=== PATIENT | female | born 1955 | race Caucasian/White ===

== ENCOUNTER 2019-08-18 11:10 | Inpatient (IN) ==
[2019-08-18] MEDS ORDERED: IOPAMIDOL 100 ML BOTTLE IV ONE (11:11)
--- NOTE | 2019-08-18 11:53 | Emergency Department Note ---
General Adult HPI - General Chief complaint: Weakness Stated complaint: weakness Time Seen by Provider: 08/18/19 11:20 Source: patient Mode of arrival: EMS Limitations: no limitations - History of Present Illness HPI Narrative: 64-year-old female patient presents emergency with chief complaint of dizziness with changes of position x2 days. Patient tells me over the last 2 days she is experienced profound unsteadiness and dizziness every time she is stood from a seated position. She describes sensation of the blood rushing from her head into her feet. During this time her legs feel very "heavy" and she is unsteady. She denies actual loss of consciousness. She does mention a history of falls in the past. She mentions bilateral lower extremity heaviness and pain with movement. She admits to drinking up to 6 bottles of water daily. She denies previous history of myocardial infarction or peripheral vascular disease. She does mention a history of chronic kidney disease but has not seen a single stayer operator in some time. ROS: Denies systemic illness, fever, sweats, chills. Denies headaches, tinnitus, or vision changes. Denies runny nose, sinus congestion, or cough. Admits to mild dyspnea on exertion. Admits to a longstanding smoking up to half pack daily since the age of 11. Denies retrosternal chest pain or palpitations. Denies abdominal pain, nausea, vomiting, or diarrhea. Denies dysuria, hematuria, urinary frequency, or urinary urgency. Denies focal weakness. - Related Data Home Medications Medication Instructions Recorded Confirmed fluoxetine 40 mg capsule 20 mg PO DAILY cap 10/19/14 07/31/17 lisinopril 40 mg tablet 40 mg PO DAILY tab 10/19/14 08/18/19 nortriptyline 10 mg capsule 30 mg PO QHS cap 10/19/14 07/31/17 Clopidogrel [Plavix] 75 mg PO DAILY 02/19/15 08/18/19 traZODone HCL [Trazodone HCl] 300 mg PO HS 02/19/15 08/18/19 Acetaminophen [Tylenol Arthritis] 650 mg PO Q4HP PRN 08/14/15 07/31/17 Acetaminophen [Tylenol] 650 mg RI Q4HP PRN 08/14/15 07/31/17 Albuterol Sulfate [Proair Hfa] 8.5 gm IH Q4 PRN 08/14/15 08/18/19 Bisacodyl [Gentle Laxative] 5 mg PO Q24HP PRN 08/14/15 07/31/17 Hydrocodone/APAP 7.5/325Mg [[place] 1 tab PO Q6HP PRN 08/14/15 07/31/17 7.5/325Mg] LORazepam [Ativan] 0.5 mg PO DAILYP PRN 08/14/15 07/31/17 Salmeterol Xinafoate [Serevent] 1 puff INH BID 08/14/15 07/31/17 hydrALAZINE HCL [Hydralazine HCl] 25 mg PO BID 08/14/15 08/18/19 Previous Rx's Medication Instructions Recorded oxycodone-acetaminophen 10 mg-325 See Rx Instructions PO .Q6-8H PRN 08/16/15 mg tablet #20 tab Triamcinolone Cream 0.1% 15G 1 dose TOPICAL BID #60 gm 08/26/17 [Kenalog Cream 0.1%] Allergies Allergy/AdvReac Type Severity Reaction Status Date / Time No Known Drug Allergies Allergy Verified 08/18/19 11:13 Review of Systems All systems ED: reviewed and negative except as stated. Past Medical History - Past Medical History [facility] Narrative: Medical History UTI (urinary tract infection) (Acute) Hypoxia (Acute) Fall at home (Acute) CVD (cerebrovascular disease) (Acute) Tobacco abuse (Acute) History of UTI (Acute) Ureteral calculus (Acute) Renal calculi (Acute) Nephrolithiasis (Acute) Kidney stones (Acute) Hypertension, essential (Acute) Hematuria, microscopic (Acute) Flank pain (Acute) CTS (carpal tunnel syndrome) (Acute) Back pain (Acute) Past Surgical History History of ureter repair (Acute) History of lithotripsy (Acute) History of renal stent (Acute) History of partial hysterectomy (Acute) History of continuous positive airway pressure (CPAP) therapy (Acute) History of colonoscopy (Acute) History of appendectomy (Acute) History of cystoscopy (Chronic 08/15/15) Family History Aunt History of coronary artery bypass surgery Grandmother Diabetes mellitus Medical history: Reports: arthritis, hypertension, peripheral artery disease, other (insomni, peripheral neuropathy.) Surgical history ED: Reports: angioplasty/stent, appendectomy, ANA/BSO (one ovary left in place. ) - Social History smoking status: Current some day smoker Physical Exam Limitations: no limitations General appearance: other (Well-developed, well-nourished, chronically ill- appearing 64-year-old female patient sitting upright on the emergency room [facility] in no acute distress.) Head: atraumatic, normocephalic Eye: Present: normal appearance, PERRL, EOMI. Absent: scleral icterus, conjunctival injection ENT: Present: normal oropharynx, mucous membranes moist Neck: Present: normal inspection, full ROM, trachea midline. Absent: lymphadenopathy Chest: Present: symmetric chest wall rise Respiratory: Present: rales/crackles (Faint crackles heard to the bases bilateral.), prolonged expiratory phase, decreased breath sounds. Absent: normal lung sounds bilaterally, respiratory distress, wheezes, stridor Cardiovascular: Present: regular rate, normal rhythm. Absent: systolic murmur, diastolic murmur Abdominal: Present: soft. Absent: distention, tenderness, guarding, rebound, rigidity, organomegaly, mass Extremities: Present: normal inspection, full ROM, normal capillary refill, calf tenderness (Towards the right.), other (Dorsalis pedis pulses present and b ounding on the right. Much harder to find a very faint towards the left.). Absent: pedal edema, pretibial edema Back: Present: normal inspection, full ROM, tenderness Neurological: Present: alert, oriented X3. Absent: normal gait, motor sensory deficit, reflexes normal Psychiatric: Present: normal affect, normal mood Skin: Present: warm, dry, normal color Course Course Narrative: The differential diagnosis of lower extremity heaviness and pain in a 64-year- old female patient is broad includes peripheral vascular disease, congestive heart failure, or neurogenic disorder. She is normotensive but somewhat tachycardic. She is afebrile. We are going to begin her work-up with orthostatic vital signs, chest radiograph, screening laboratory studies, and EKG. Patient did have some tenderness to the right calf musculature. She has no lower extremity edema we are going order a d-dimer to help sort this out. A review of her laboratory studies show the following: CBC WBC 21.5, RBC 5.12, hemoglobin 15.3, hematocrit 46.1, platelets 390. CMP BUN 27, glucose 112, all others within normal limits. Troponin less than 0.01. proBNP less than 50.0. D-dimer 0.40. Chest x-ray showing a possible left basilar nodule. Radiologist recommended repeat exam with nipple markers or chest CT scan. Twelve-lead EKG showing sinus tachycardia at [address] segment changes. No ectopy. After reviewing all the data I discussed these findings briefly with my collaborating physician (Dr. Harrison). Due to her leukocytosis a source of infection needs to be sought. She is going to be sent for a CT scan of her chest with contrast. Urinalysis is being sent to the lab for microscopic evaluation. I am going to order a lactic acid level and procalcitonin. Chest CT showed no pulmonary parenchymal nodule or focal consolidation. Radiologist did mention centrilobular emphysema and probable hepatic steatosis. Lactic acid 0.7. Procalcitonin 0.05. UAD showing yellow hazy urine with specific gravity of 1.027. 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 Knowing this additional information I spoke to my collaborative physician once again. She is likely suffering from some form of urinary tract infection/pyelonephritis. He recommended an ultrasound of her kidneys. This was ordered and reviewed showing mild right hydronephrosis that is considered likely chronic. Radiologist did mention at least 3 nonobstructing right-sided renal calculi. There was mildly echogenic renal cortex bilaterally. This is consistent with medical renal disease. At this time patient does have an elevated white blood cell count and a constellation of other symptoms such as dizziness with change the position and lower extremity heaviness. Her urinalysis definitely shows evidence of infection. This is likely pyelonephritis versus a mundane urinary tract infection. A review of my antibiotic resources indicate that Rocephin is a good choice for IV antibiotic therapy. Patient was given 1 g of Rocephin IVP. With the patient ongoing condition consulted with the hospitalist (Dr. Coronel) about possible admission for ongoing therapy. At this time the hospitalist concurred that the patient meets admissions criteria and will likely need ongoing care. Patient is going to be admitted to the medical service under the care of Dr. Coronel. All further treatment decisions, modalities, and ultimate patient disposition will be carried out by the hospitalist. Vital Signs Temperature 96.6 F L 08/18/19 11:11 Pulse Rate 114 H 06/12/20 11:11 Respiratory Rate 20 08/18/19 11:11 Blood Pressure 117/87 08/18/19 11:11 Pulse Oximetry (%) 96 08/18/19 11:11 Temperature 96.6 F L 08/18/19 11:11 Pulse Rate 107 H 08/18/19 16:01 Respiratory Rate 23 H 08/18/19 16:01 Blood Pressure 125/80 08/18/19 16:01 Pulse Oximetry (%) 95 08/18/19 16:01 Medical Decision Making - Lab Data Lab results reviewed: Yes I reviewed the patient's lab results. Result diagrams: 08/18/19 11:37 08/18/19 11:37 Lab Results 08/18/19 08/18/19 08/18/19 Range/Units 11:37 11:37 11:37 WBC 21.5 H (4.50-11.00) K/mcL RBC 5.12 (3.59-5.38) M/mcL Hgb 15.3 (11.2-15.7) g/dL Hct 46.1 H (34.1-44.9) % MCV 90.0 (80.0-100.0) fL MCH 29.9 (26.0-34.0) pg MCHC 33.2 (31.0-36.0) g/dL RDW 12.2 (11.5-14.5) % Plt Count 390 (140-440) K/mcL MPV 10.6 H (7.4-10.4) fL Gran % 67.8 (38.0-78.0) % Lymph % (Auto) 26.3 (15.5-49.0) % [place] % (Auto) 5.1 (1.0-12.0) % Eos % (Auto) 0.5 (0.0-7.0) % Baso % (Auto) 0.3 (0.0-2.0) % Gran # 14.57 H (1.80-8.00) K/mcL Lymph # (Auto) 5.64 H (1.50-4.80) K/mcL [place] # (Auto) 1.09 H (0.10-0.90) K/mcL Eos # (Auto) 0.11 (0.00-0.70) K/mcL Baso # (Auto) 0.07 (0.00-0.30) K/mcL D-Dimer (0.00-0.40) ug/ml VBG Lactic Acid (0.5-2.0) mmol/L Sodium 140 (133-145) mmol/L Potassium 3.4 (3.3-5.1) mmol/L Chloride 101 (96-108) mmol/L Carbon Dioxide 25 (22-30) mmol/L Anion Gap 14.0 (8-16) BUN 27 H (8-23) mg/dl Creatinine 1.1 (0.6-1.1) mg/dl GFR Calculation 52 Glucose 112 H (70-105) mg/dL Calcium 9.4 (8.6-10.4) mg/dl Total Bilirubin 0.2 (0.0-1.0) mg/dL AST 19 (0-37) U/l ALT 26 (0-40) U/l Alkaline Phosphatase 100 (39-117) U/L Troponin T < 0.01 (0-0.03) ng/ml NT-Pro-B Natriuret Pep (0-125) pg/ml Total Protein 7.4 (5.9-8.4) gm/dL Albumin 4.1 (3.2-5.2) gm/dL Globulin 3.3 (2.2-3.7) gm/dL Albumin/Globulin Ratio 1.2 (1.0-2.3) Procalcitonin (<0.10) ng/mL Urine Color Urine Appearance Urine pH (5.0-9.0) Ur Specific [place] (1.000-1.035) Urine Protein (NEG) mg/dL Urine Glucose (UA) (NEG) mg/dL Urine Ketones (NEG) mg/dL Urine Occult Blood (<0.03) mg/dL Urine Nitrate (NEG) Urine Bilirubin (NEG) mg/dL Urine Urobilinogen (NEG) mg/dL Ur Leukocyte Esterase (NEG) /uL Urine RBC (0-1) /hpf Urine WBC (0-4) /hpf Ur Squamous Epith Cells (0-4) /hpf Calcium Oxalate Crystal (0) /hpf Urine Bacteria (0) /hpf Hyaline Casts (0-2) /lpf Urine Mucus (0) /hpf Ur Culture Indicated? 08/18/19 08/18/19 08/18/19 Range/Units 11:37 11:37 11:37 WBC (4.50-11.00) K/mcL RBC (3.59-5.38) M/mcL Hgb (11.2-15.7) g/dL Hct (34.1-44.9) % MCV (80.0-100.0) fL MCH (26.0-34.0) pg MCHC (31.0-36.0) g/dL RDW (11.5-14.5) % Plt Count (140-440) K/mcL MPV (7.4-10.4) fL Gran % (38.0-78.0) % Lymph % (Auto) (15.5-49.0) % [place] % (Auto) (1.0-12.0) % Eos % (Auto) (0.0-7.0) % Baso % (Auto) (0.0-2.0) % Gran # (1.80-8.00) K/mcL Lymph # (Auto) (1.50-4.80) K/mcL [place] # (Auto) (0.10-0.90) K/mcL Eos # (Auto) (0.00-0.70) K/mcL Baso # (Auto) (0.00-0.30) K/mcL D-Dimer 0.40 (0.00-0.40) ug/ml VBG Lactic Acid (0.5-2.0) mmol/L Sodium (133-145) mmol/L Potassium (3.3-5.1) mmol/L Chloride (96-108) mmol/L Carbon Dioxide (22-30) mmol/L Anion Gap (8-16) BUN (8-23) mg/dl Creatinine (0.6-1.1) mg/dl GFR Calculation Glucose (70-105) mg/dL Calcium (8.6-10.4) mg/dl Total Bilirubin (0.0-1.0) mg/dL AST (0-37) U/l ALT (0-40) U/l Alkaline Phosphatase (39-117) U/L Troponin T (0-0.03) ng/ml NT-Pro-B Natriuret Pep < 50.0 (0-125) pg/ml Total Protein (5.9-8.4) gm/dL Albumin (3.2-5.2) gm/dL Globulin (2.2-3.7) gm/dL Albumin/Globulin Ratio (1.0-2.3) Procalcitonin 0.05 (<0.10) ng/mL Urine Color Urine Appearance Urine pH (5.0-9.0) Ur Specific [place] (1.000-1.035) Urine Protein (NEG) mg/dL Urine Glucose (UA) (NEG) mg/dL Urine Ketones (NEG) mg/dL Urine Occult Blood (<0.03) mg/dL Urine Nitrate (NEG) Urine Bilirubin (NEG) mg/dL Urine Urobilinogen (NEG) mg/dL Ur Leukocyte Esterase (NEG) /uL Urine RBC (0-1) /hpf Urine WBC (0-4) /hpf Ur Squamous Epith Cells (0-4) /hpf Calcium Oxalate Crystal (0) /hpf Urine Bacteria (0) /hpf Hyaline Casts (0-2) /lpf Urine Mucus (0) /hpf Ur Culture Indicated? 08/18/19 08/18/19 Range/Units 12:45 13:28 WBC (4.50-11.00) K/mcL RBC (3.59-5.38) M/mcL Hgb (11.2-15.7) g/dL Hct (34.1-44.9) % MCV (80.0-100.0) fL MCH (26.0-34.0) pg MCHC (31.0-36.0) g/dL RDW (11.5-14.5) % Plt Count (140-440) K/mcL MPV (7.4-10.4) fL Gran % (38.0-78.0) % Lymph % (Auto) (15.5-49.0) % [place] % (Auto) (1.0-12.0) % Eos % (Auto) (0.0-7.0) % Baso % (Auto) (0.0-2.0) % Gran # (1.80-8.00) K/mcL Lymph # (Auto) (1.50-4.80) K/mcL [place] # (Auto) (0.10-0.90) K/mcL Eos # (Auto) (0.00-0.70) K/mcL Baso # (Auto) (0.00-0.30) K/mcL D-Dimer (0.00-0.40) ug/ml VBG Lactic Acid 0.7 (0.5-2.0) mmol/L Sodium (133-145) mmol/L Potassium (3.3-5.1) mmol/L Chloride (96-108) mmol/L Carbon Dioxide (22-30) mmol/L Anion Gap (8-16) BUN (8-23) mg/dl Creatinine (0.6-1.1) mg/dl GFR Calculation Glucose (70-105) mg/dL Calcium (8.6-10.4) mg/dl Total Bilirubin (0.0-1.0) mg/dL AST (0-37) U/l ALT (0-40) U/l Alkaline Phosphatase (39-117) U/L Troponin T (0-0.03) ng/ml NT-Pro-B Natriuret Pep (0-125) pg/ml Total Protein (5.9-8.4) gm/dL Albumin (3.2-5.2) gm/dL Globulin (2.2-3.7) gm/dL Albumin/Globulin Ratio (1.0-2.3) Procalcitonin (<0.10) ng/mL Urine Color Yellow Urine Appearance Hazy Urine pH 5.0 (5.0-9.0) Ur Specific [place] 1.027 (1.000-1.035) Urine Protein 30 A (NEG) mg/dL Urine Glucose (UA) Negative (NEG) mg/dL Urine Ketones Neg (NEG) mg/dL Urine Occult Blood Neg (<0.03) mg/dL Urine Nitrate Neg (NEG) Urine Bilirubin Neg (NEG) mg/dL Urine Urobilinogen 2.0 A (NEG) mg/dL Ur Leukocyte Esterase 250 A (NEG) /uL Urine RBC 4 H (0-1) /hpf Urine WBC > 182 H (0-4) /hpf Ur Squamous Epith Cells < 1 (0-4) /hpf Calcium Oxalate Crystal Many A (0) /hpf Urine Bacteria Many A (0) /hpf Hyaline Casts 5 H (0-2) /lpf Urine Mucus Mod (0) /hpf Ur Culture Indicated? Yes - Radiology Data Radiology results reviewed: Yes I reviewed the patient's radiology results. Ordering Physician: Dayo Andino PA-C Date of Service: 08/18/19 Procedure(s): XR chest 2V Accession Number(s): [id number] INDICATION: XAVIER x 2 days. Orthopnea. long Hx of smoking. Weakness TECHNIQUE: PA and lateral upright chest x-ray COMPARISON: Previous examination dated 02/19/2015 FINDINGS: Lungs: Possible nodule identified at the left lung base. This is only visualized on frontal view. This may be a prominent nipple shadow. The frontal view with nipple markers or chest CT scan recommended. Lungs are otherwise negative. No other focal pulmonary parenchymal abnormality. Heart, vascular: No significant cardiomegaly. Pulmonary vascularity is normal. No pulmonary edema or pulmonary congestion Mediastinum, erika: No mediastinal widening. No hilar mass Pleura:No pleural fluid. No pleural-based mass or calcification Thoracic spine, ribs: No thoracic compression fracture. Ribs are negative. No fracture. No lytic lesion IMPRESSION: 1. Possible left basilar nodule. Recommend repeat examination with nipple markers or chest CT scan 2. Otherwise negative examination Interpreted and Authenticated by: Farrukh Adler 08/18/19 Ordering Physician: Dayo Andino PA-C Date of Service: 08/18/19 Procedure(s): CT chest w con Accession Number(s): [id number] INDICATION: Possible left basilar mass demonstrated on previous chest x-ray. Elevated white blood cell count. COMPARISON: Chest x-rays dated 08/18/2019, 02/19/2015 TECHNIQUE: Axial contrast enhanced images through the chest. Sagittally and coronally reformatted images. MIP reformatted images. 80ml Isovue 370 injected intravenously. FINDINGS: Lungs:No pulmonary parenchymal nodules. No focal consolidation. There is bilateral centrilobular emphysema with upper lobe predominance. Appearance is consistent with smoking history. No significant paraseptal emphysema. There is no honeycombing. No bronchiectasis. No intralobular septal thickening. Mediastinum, vascular:Normal thoracic aorta. No thoracic aortic aneurysm or dissection. No pathologic mediastinal or hilar lymphadenopathy Heart:No cardiomegaly. No pericardial effusion. No significant coronary artery calcification Pleura:No significant pleural effusion. No pleural-based mass or calcification Axilla, supraclavicular regions, chest wall:No pathologic axillary or supraclavicular adenopathy. Musculoskeletal:No thoracic compression fracture or lytic lesion. No sternal or rib lesion Upper Abdomen:Liver is low density relative to the spleen consistent with hepatic steatosis. No other abnormality IMPRESSION: 1. No pulmonary parenchymal nodule. No focal consolidation 2. Centrilobular emphysema 3. Probable hepatic steatosis The exam was performed using radiation dose optimization techniques including, but not limited to, automated exposure control, adjustment of the mA and/or kV according to patient size and use of iterative reconstruction technique. Interpreted and Authenticated by: Farrukh Adler 08/18/19 Ordering Physician: Dayo Andino PA-C Date of Service: 08/18/19 Procedure(s): US renal BI Accession Number(s): [id number] INDICATION: R/o pylonephritis. TECHNIQUE: Grayscale and color flow Doppler spectral imaging. COMPARISON: Previous CT scan dated 07/29/2013 FINDINGS: Right kidney: Right kidney [id number] x 5.2 x 3.8 cm.. Right renal cortex is mildly echogenic consistent with medical renal disease. There is mild hydronephrosis. Previous CT scan demonstrated hydronephrosis and a right ureteral stent. This hydronephrosis probably residual and chronic. There are small nonobstructing right renal calculi. No solid or cystic mass. Left kidney: Left kidney [id number] x 4.5 x 4.4 cm.. There is no hydronephrosis. No solid left renal mass. Left renal cortex is mildly echogenic consistent with medical renal disease. No detectable calculi. Incidental note is made of a 9 mm mid to lower pole cyst. Bladder: Prevoid bladder mL. Post void bladder volumepatient was unable to void. No bladder calculi. No detectable mass. Bilateral ureteral jets visualized. IMPRESSION: 1. Mild right hydronephrosis. This is probably chronic 2. At least 4 nonobstructing right renal calculi 3. Mildly echogenic renal cortex bilaterally. Findings consistent with medical renal disease Interpreted and Authenticated by: Farrukh Adler 08/18/19 - EKG Data EKG #1 EKG results narrative: Twelve-lead EKG showing sinus tachycardia at 107 bpm. There is increased QTC at 497. No ectopy. No ST segment changes. Disposition Pt seen by TANNING WHEEL FILLER/PA only: Yes Clinical Impression: Pyelonephritis, acute Disposition: Xfer As Outpt/Obs ([facility]) Condition: Good Referrals: Cathryn Zamora MD [Referring] -
[2019-08-18] MEDS ORDERED: 0.9 % SODIUM CHLORIDE 1,000 ML IV ONE (12:12)
--- NOTE | 2019-08-18 12:13 | XRay Report ---
INDICATION: XAVIER x 2 days. Orthopnea. long Hx of smoking. Weakness TECHNIQUE: PA and lateral upright chest x-ray COMPARISON: Previous examination dated 02/19/2015 FINDINGS: Lungs: Possible nodule identified at the left lung base. This is only visualized on frontal view. This may be a prominent nipple shadow. The frontal view with nipple markers or chest CT scan recommended. Lungs are otherwise negative. No other focal pulmonary parenchymal abnormality. Heart, vascular: No significant cardiomegaly. Pulmonary vascularity is normal. No pulmonary edema or pulmonary congestion Mediastinum, erika: No mediastinal widening. No hilar mass Pleura:No pleural fluid. No pleural-based mass or calcification Thoracic spine, ribs: No thoracic compression fracture. Ribs are negative. No fracture. No lytic lesion IMPRESSION: 1. Possible left basilar nodule. Recommend repeat examination with nipple markers or chest CT scan 2. Otherwise negative examination Interpreted and Authenticated by: Farrukh Adler 08/18/19
[2019-08-18 12:32] LABS: Basophils # (Auto) 0.07 K/mcL (0.00-0.30); Basophils % (Auto) 0.3 % (0.0-2.0); Eosinophils # (Auto) 0.11 K/mcL (0.00-0.70); Eosinophils % (Auto) 0.5 % (0.0-7.0); Granulocytes % (Auto) 67.8 % (38.0-78.0); Hematocrit 46.1 % (34.1-44.9); Hemoglobin 15.3 g/dL (11.2-15.7); Lymphocytes # (Auto) 5.64 K/mcL (1.50-4.80); Lymphocytes % (Auto) 26.3 % (15.5-49.0); Mean Corpuscular HGB Conc 33.2 g/dL (31.0-36.0); Mean Platelet Volume 10.6 fL (7.4-10.4); Monocytes # (Auto) 1.09 K/mcL (0.10-0.90); Monocytes % (Auto) 5.1 % (1.0-12.0); Platelet Count 390 K/mcL (140-440); RBC 5.12 M/mcL (3.59-5.38); Red Cell Distribution Width 12.2 % (11.5-14.5); WBC 21.5 K/mcL (4.50-11.00)
[2019-08-18 13:04] LABS: ALT/SGPT 26 U/l (0-40); AST/SGOT 19 U/l (0-37); Albumin 4.1 gm/dL (3.2-5.2); Albumin/Globulin Ratio 1.2 (1.0-2.3); Alkaline Phosphatase 100 U/L (39-117); Bilirubin,Total 0.2 mg/dL (0.0-1.0); Blood Urea Nitrogen 27 mg/dl (8-23); Calcium 9.4 mg/dl (8.6-10.4); Carbon Dioxide 25 mmol/L (22-30); Chloride 101 mmol/L (96-108); Globulin 3.3 gm/dL (2.2-3.7); Glomerular Filtration Rate 52; Glucose 112 mg/dL (70-105)
[2019-08-18 14:05] LABS: Appearance,Urine HAZY; Bacteria,Urine MANY /hpf (0); Bilirubin,Urine NEG (NEG); Calcium Oxalate Crystals,Urine MANY /hpf (0); Color,Urine YELLOW; Culture Indicated,Urine YES; Glucose,Urine (UA) NEGATIVE (NEG); Ketones,Urine NEG (NEG); Leukocyte Esterase,Urine 250 /uL (NEG); Mucus,Urine MOD /hpf (0); Nitrate,Urine NEG (NEG); Protein,Urine 30 mg/dL (NEG); Specific Gravity,Urine 1.027 (1.000-1.035); Urine Blood NEG mg/dL (<0.03); Urine Hyaline Cast 5 /lpf (0-2); Urine RBC 4 /hpf (0-1); Urine Squamous Epithelial Cell < 1 /hpf (0-4); Urine WBC > 182 /hpf (0-4)
--- NOTE | 2019-08-18 14:06 | Cat Scan Report ---
INDICATION: Possible left basilar mass demonstrated on previous chest x-ray. Elevated white blood cell count. COMPARISON: Chest x-rays dated 08/18/2019, 02/19/2015 TECHNIQUE: Axial contrast enhanced images through the chest. Sagittally and coronally reformatted images. MIP reformatted images. 80ml Isovue 370 injected intravenously. FINDINGS: Lungs:No pulmonary parenchymal nodules. No focal consolidation. There is bilateral centrilobular emphysema with upper lobe predominance. Appearance is consistent with smoking history. No significant paraseptal emphysema. There is no honeycombing. No bronchiectasis. No intralobular septal thickening. Mediastinum, vascular:Normal thoracic aorta. No thoracic aortic aneurysm or dissection. No pathologic mediastinal or hilar lymphadenopathy Heart:No cardiomegaly. No pericardial effusion. No significant coronary artery calcification Pleura:No significant pleural effusion. No pleural-based mass or calcification Axilla, supraclavicular regions, chest wall:No pathologic axillary or supraclavicular adenopathy. Musculoskeletal:No thoracic compression fracture or lytic lesion. No sternal or rib lesion Upper Abdomen:Liver is low density relative to the spleen consistent with hepatic steatosis. No other abnormality IMPRESSION: 1. No pulmonary parenchymal nodule. No focal consolidation 2. Centrilobular emphysema 3. Probable hepatic steatosis The exam was performed using radiation dose optimization techniques including, but not limited to, automated exposure control, adjustment of the mA and/or kV according to patient size and use of iterative reconstruction technique. Interpreted and Authenticated by: Farrukh Adler 08/18/19
--- NOTE | 2019-08-18 15:32 | Ultrasound Report ---
INDICATION: R/o pylonephritis. TECHNIQUE: Grayscale and color flow Doppler spectral imaging. COMPARISON: Previous CT scan dated 07/29/2013 FINDINGS: Right kidney: Right kidney .2 x 5.2 x 3.8 cm.. Right renal cortex is mildly echogenic consistent with medical renal disease. There is mild hydronephrosis. Previous CT scan demonstrated hydronephrosis and a right ureteral stent. This hydronephrosis probably residual and chronic. There are small nonobstructing right renal calculi. No solid or cystic mass. Left kidney: Left kidney [id number] x 4.5 x 4.4 cm.. There is no hydronephrosis. No solid left renal mass. Left renal cortex is mildly echogenic consistent with medical renal disease. No detectable calculi. Incidental note is made of a 9 mm mid to lower pole cyst. Bladder: Prevoid bladder [id number] mL. Post void bladder volumepatient was unable to void. No bladder calculi. No detectable mass. Bilateral ureteral jets visualized. IMPRESSION: 1. Mild right hydronephrosis. This is probably chronic 2. At least 4 nonobstructing right renal calculi 3. Mildly echogenic renal cortex bilaterally. Findings consistent with medical renal disease Interpreted and Authenticated by: Farrukh Adler 08/18/19
[2019-08-18] MEDS ORDERED: cefTRIAXone 1 GM VIAL IM ONE (15:43)
[2019-08-18] MEDS ORDERED: cefTRIAXone 1 GM VIAL IV ONE (15:46)
--- NOTE | 2019-08-18 16:16 | Internal Med History&Physical ---
Medical - H&P: [facility] Patient information: Note initiated : 08/18/19 at 4:16 pm Service Date, if different from initiated Date: [] Patient: Debbie Delgado 64 y/o F admitted on for weakness. Chief Complaint: [] Chief complaint: Weakness, fever History of present illness: Ms. Delgado is a 64 year old F with a history of nephrolithiasis/tobacco dependence/HTN and CVA who presents to the ER with 2 days onset of increasing weakness, flank pain and progressive dizziness that initially started on activity progressing to multiple episodes of dizziness today. With increasing concerns patient presents to the ER for evaluation. Initial work-up in the ER was consistent with white count over 21,000/pyuria suggestive of night pyelonephritis in the setting of flank pain and mild RUSTAM. Following pancultures antibiotics were administered. Hospitalist service was consulted for admission At the time evaluation patient is alert but very anxious. She is tachycardic. She was able to endorse history as above. She denies diarrhea, dysuria, bloody urine, joint pain but endorses to myalgia weakness malaise and loss of appetite. She denies nausea/hematemesis or URI symptoms. She denies recent hospitalizations. She further denies changes in medications. Review of systems A 10 point review system was performed and is negative except for ones discussed above Medical - H&P: PM Medical history: Back pain (Acute) CTS (carpal tunnel syndrome) (Acute) CVD (cerebrovascular disease) (Acute) Fall at home (Acute) Flank pain (Acute) right Hematuria, microscopic (Acute) History of UTI (Acute) Hypertension, essential (Acute) Hypoxia (Acute) Kidney stones (Acute) Nephrolithiasis (Acute) Renal calculi (Acute) 08/10/2013 Tobacco abuse (Acute) UTI (urinary tract infection) (Acute) Ureteral calculus (Acute) 08/10/2013 Surgical History History of appendectomy (Acute) History of colonoscopy (Acute) 07/25/2010 History of continuous positive airway pressure (CPAP) therapy (Acute) History of lithotripsy (Acute) 06/2013; right kidney, performed at [place] History of partial hysterectomy (Acute) History of renal stent (Acute) Right kidney History of ureter repair (Acute) Right History of cystoscopy (Chronic 08/15/15) retrograde pyelogram, ureteroscopy, laser lithotripsy, stone removal Family History Aunt History of coronary artery bypass surgery Grandmother Diabetes mellitus Maternal Social History housing: house marital status: smoking status: Former smoker alcohol intake frequency: does not drink Reproductive History Menstrual Medical - H&P: Meds Home Medications Medication Instructions Recorded Confirmed Type fluoxetine 40 mg capsule 40 mg PO DAILY cap 10/19/14 08/18/19 History lisinopril 40 mg tablet 40 mg PO DAILY tab 10/19/14 08/18/19 History nortriptyline 10 mg capsule 50 mg PO QHS cap 10/19/14 08/18/19 History Clopidogrel [Plavix] 75 mg PO DAILY 02/19/15 08/18/19 History traZODone HCL [Trazodone HCl] 300 mg PO HS 02/19/15 08/18/19 History Acetaminophen [Tylenol Arthritis] 650 mg PO Q4HP PRN 08/14/15 08/18/19 History Acetaminophen [Tylenol] 650 mg NE Q4HP PRN 08/14/15 08/18/19 History Albuterol Sulfate [Proair Hfa] 8.5 gm IH Q4 PRN 08/14/15 08/18/19 History Bisacodyl [Gentle Laxative] 5 mg PO Q24HP PRN 08/14/15 08/18/19 History Hydrocodone/APAP 7.5/325Mg [[place] 1 tab PO Q6HP PRN 08/14/15 08/18/19 History 7.5/325Mg] LORazepam [Ativan] 0.5 mg PO DAILYP PRN 08/14/15 08/18/19 History Salmeterol Xinafoate [Serevent] 1 puff INH BID 08/14/15 08/18/19 History hydrALAZINE HCL [Hydralazine HCl] 25 mg PO BID 08/14/15 08/18/19 History oxycodone-acetaminophen 10 mg-325 See Rx Instructions PO .Q6-8H PRN 08/16/15 08/18/19 Rx mg tablet #20 tab Triamcinolone Cream 0.1% 15G 1 dose TOPICAL BID #60 gm 08/26/17 08/18/19 Rx [Kenalog Cream 0.1%] Allergies Allergy/AdvReac Type Severity Reaction Status Date / Time No Known Drug Allergies Allergy Verified 08/18/19 11:13 Medical - H&P: Exam - Constitutional Vitals: Temp Pulse Resp BP Pulse Ox 96.6 F L 107 H 23 H 125/80 95 08/18/19 11:11 08/18/19 16:01 08/18/19 16:01 08/18/19 16:01 08/18/19 16:01 General appearance: morbidly obese Exam: Head normocephalic Oral cavity dry No ear nose discharge Neck no lymphadenopathy S1-S2 regular rhythm Diminished breath sounds bases Abdomen tender right flank No lymphedema cyanosis or clubbing or joint swelling Skin no suspicious lesion Psych anxious Neuro nonfocal Medical - H&P: Reslt - Labs CBC & Chem 7: 08/19/19 05:45 08/19/19 05:45 Labs: Short CBC 08/18/19 Range/Units 11:37 WBC 21.5 H (4.50-11.00) K/mcL Hgb 15.3 (11.2-15.7) g/dL Hct 46.1 H (34.1-44.9) % Plt Count 390 (140-440) K/mcL BMP 08/18/19 11:37 Sodium 140 Potassium 3.4 Chloride 101 Carbon Dioxide 25 BUN 27 H Creatinine 1.1 Glucose 112 H Calcium 9.4 Cardiac Enzymes 08/18/19 Range/Units 11:37 Troponin T < 0.01 (0-0.03) ng/ml Liver Function 08/18/19 Range/Units 11:37 Total Bilirubin 0.2 (0.0-1.0) mg/dL AST 19 (0-37) U/l ALT 26 (0-40) U/l Alkaline Phosphatase 100 (39-117) U/L Albumin 4.1 (3.2-5.2) gm/dL Urine 08/18/19 Range/Units 12:45 Urine Color Yellow Urine Appearance Hazy Urine pH 5.0 (5.0-9.0) Ur Specific [place] 1.027 (1.000-1.035) Urine Protein 30 A (NEG) mg/dL Urine Glucose (UA) Negative (NEG) mg/dL Medical - H&P: A/P (1) Acute pyelonephritis Current visit: Yes Status: Acute * Acute pyonephritis with severe sepsis. White count 21,000. Initiate antibiotic coverage. De-escalate based on sensitivities. * Severe sepsis with endorgan dysfunction-pancultures/antibiotic coverage. Seps is management per guidelines * RUSTAM-secondary to sepsis endorgan dysfunction. Continue crystalloid/management of primary etiology. * Tobacco dependence-nicotine patch. * Mild COPD on as needed bronchodilators. * History of CVA on Plavix * Hypertension continue lisinopril once systolics improved and sepsis resolves * Anxiety-continue home dose lorazepam/trazodone/ nortriptyline * Degenerative joint disease continue oxycodone * Full code * Prophylaxis heparin Plan * Inpatient hospitalization. Anticipate minimum 2 midnight stay * Broad antibiotic coverage * De-escalate based on sensitivities * Monitor renal function * Pre-existing medical condition management as above * PT OT/nutrition support
[2019-08-18] MEDS ORDERED: ONDANSETRON 4 MG/2 ML VIAL IV PRN (17:26)
[2019-08-18] MEDS ORDERED: BISACODYL 10 MG SUPP.RECT PR PRN (17:26)
[2019-08-18] MEDS ORDERED: MELATONIN 3 MG TABLET PO PRN (17:26)
[2019-08-18] MEDS ORDERED: ALBUTEROL SULFATE 200 PUFF INHALER IH PRN (17:26)
[2019-08-18] MEDS ORDERED: hydrALAZINE 20 MG/ML VIAL IV PRN (17:26)
[2019-08-18] MEDS ORDERED: POTASSIUM CHLORIDE 20 MEQ PACKET PO PRN (17:26)
[2019-08-18] MEDS ORDERED: ONDANSETRON 4 MG ODT TABLET SL PRN (17:26)
[2019-08-18] MEDS ORDERED: MAGNESIUM SULFATE 2 GM/50 ML BAG IV PRN (17:26)
[2019-08-18] MEDS ORDERED: POLYETHYLENE GLYCOL 3350 17 GM PACKET PO PRN (17:26)
[2019-08-18] MEDS ORDERED: ACETAMINOPHEN 325 MG TABLET PO PRN (17:26)
[2019-08-18] MEDS: 0.9 % SODIUM CHLORIDE 1,000 ML IV SCH (17:41)
[2019-08-18] MEDS: ACETAMINOPHEN 650 MG/65 ML BOTTLE IV PRN (20:24)
[2019-08-18] MEDS: cefTRIAXone 2 GM in DEXTROSE 5% IN WATER 50 ML IV SCH (20:31)
[2019-08-18] MEDS ORDERED: cefTRIAXone 2 GM VIAL ONE (20:33)
[2019-08-18] MEDS: DOCUSATE SODIUM 100 MG CAPSULE PO SCH (21:29)
[2019-08-18] MEDS: hydrALAZINE 25 MG TABLET PO SCH (21:29)
[2019-08-18] MEDS: HEPARIN 5,000 UNIT/ML VIAL SQ SCH (21:29)
[2019-08-18] MEDS: traZODone HCL 150 MG TABLET PO SCH (21:30)
[2019-08-18] MEDS: TRIAMCINOLONE CREAM 0.1% 15G 1 DOSE TUBE TOPICAL SCH (21:30)
[2019-08-18] MEDS: SENNOSIDES/DOCUSATE SODIUM 1 TAB TABLET PO SCH (21:30)
[2019-08-18] MEDS: 0.9 % SODIUM CHLORIDE 10 ML SYRINGE IV SCH (21:31)
[2019-08-19] MEDS: ACETAMINOPHEN 650 MG/65 ML BOTTLE IV PRN ×2 (03:44→19:23)
[2019-08-19] MEDS: HYDROmorphone 0.5 MG/0.5 ML SYRINGE IV PRN ×4 (04:30→21:57)
[2019-08-19] MEDS: 0.9 % SODIUM CHLORIDE 10 ML SYRINGE IV SCH ×3 (05:56→20:47)
[2019-08-19 07:04] LABS: Hematocrit 41.6 % (34.1-44.9); Mean Cell Volume 89.7 fL (80.0-100.0); Mean Corpuscular HGB Conc 33.7 g/dL (31.0-36.0); Mean Platelet Volume 10.8 fL (7.4-10.4); Platelet Count 303 K/mcL (140-440); RBC 4.64 M/mcL (3.59-5.38); Red Cell Distribution Width 12.3 % (11.5-14.5); WBC 13.3 K/mcL (4.50-11.00)
[2019-08-19 07:27] LABS: ALT/SGPT 22 U/l (0-40); AST/SGOT 18 U/l (0-37); Albumin 3.2 gm/dL (3.2-5.2); Albumin/Globulin Ratio 1.1 (1.0-2.3); Alkaline Phosphatase 82 U/L (39-117); Bilirubin,Direct < 0.2 mg/dL (0.0-0.3); Bilirubin,Total 0.2 mg/dL (0.0-1.0); Blood Urea Nitrogen 22 mg/dl (8-23); Calcium 8.6 mg/dl (8.6-10.4); Carbon Dioxide 24 mmol/L (22-30); Chloride 104 mmol/L (96-108); Glomerular Filtration Rate 67; Glucose 101 mg/dL (70-105); Lactate Dehydrogenase 127 U/L (94-250); Phosphorous 3.2 mg/dL (2.7-4.5); Triglycerides 132 mg/dl (<150); Uric Acid 5.5 mg/dL (2.5-8.0)
[2019-08-19 08:58] LABS: Lymphocytes % 33 % (15-49); Monocytes % (Manual) 5 % (1-12); Platelet Estimate NORMAL (NORMAL); RBC Morphology NORMAL (NORMAL); Reactive Lymphocytes 1 % (0-2); Segmented Neutrophils % 61 % (38-78)
[2019-08-19] MEDS: DOCUSATE SODIUM 100 MG CAPSULE PO SCH ×2 (09:05→20:47)
[2019-08-19] MEDS: hydrALAZINE 25 MG TABLET PO SCH ×2 (09:05→20:47)
[2019-08-19] MEDS: MULTIVIT,THER IRON,CA,FA & MIN 1 TABLET PO SCH (09:05)
[2019-08-19] MEDS: CLOPIDOGREL 75 MG TABLET PO SCH (09:05)
[2019-08-19] MEDS: TRIAMCINOLONE CREAM 0.1% 15G 1 DOSE TUBE TOPICAL SCH ×2 (09:05→20:47)
[2019-08-19] MEDS: NICOTINE 21 MG PATCH TOPICAL SCH (09:05)
[2019-08-19] MEDS: HEPARIN 5,000 UNIT/ML VIAL SQ SCH ×2 (09:05→20:46)
[2019-08-19] MEDS: LISINOPRIL 20 MG TABLET PO SCH (09:05)
--- NOTE | 2019-08-19 11:24 | Internal Med Progress Note ---
Medical - PN: Subj Patient information: Note initiated : 08/19/19 at 11:24 am Service Date, if different from initiated Date: [] Patient: Debbie Delgado 64 y/o F admitted on 08/18/19 for weakness. Chief Complaint: [] Interval history: Ms. Delgado is a 64 year old F with a history of nephrolithiasis/tobacco dependence/HTN and CVA who presents to the ER with 2 days onset of increasing weakness, flank pain and progressive dizziness that initially started on activity progressing to multiple episodes of dizziness today. With increasing concerns patient presents to the ER for evaluation. Initial work-up in the ER was consistent with white count over 21,000/pyuria suggestive of night pyelonephritis in the setting of flank pain and mild RUSTAM. Following pancultures antibiotics were administered. Hospitalist service was consulted for admission At the time evaluation patient is alert but very anxious. She is tachycardic. She was able to endorse history as above. She denies diarrhea, dysuria, bloody urine, joint pain but endorses to myalgia weakness malaise and loss of appetite. She denies nausea/hematemesis or URI symptoms. She denies recent hospitalizations. She further denies changes in medications. 08/18-patient doing well. White count down to 13.3. On antibiotic coverage. Improved flank pain. Creatinine downtrending 2.9. BUN improved. Stable hemodynamics. GNR on cultures. Await sensitivities. Continue crystalloid/antibiotics. Discharge in 24 hours if clinically improved - Constitutional Vitals: Vital Signs Temp Pulse Resp BP Pulse Ox 98.2 F 97 H 18 138/84 92 08/19/19 06:59 08/19/19 06:59 08/19/19 07:00 08/19/19 06:59 08/19/19 06:59 Period Temp Pulse Resp BP Sys/Sosa Pulse Ox Last 24 Hr 97.0 F-98.2 F 97-118 14-25 80-138/54-95 85-98 Intake and Output 08/18/19 08/19/19 08/19/19 21:59 05:59 13:59 Intake Total 2065 450 400 Output Total 450 250 Balance 2065 0 150 Weight 200 lb 6.4 oz Intake & Output: Intake & Output 08/18/19 08/19/19 08/19/19 21:59 05:59 13:59 Intake Total 2065 450 400 Output Total 450 250 Balance 206 0 150 Weight 200 lb 6.4 oz Intake: IV 1065 Sodium Chloride 0.9% 1,000 ml @ 1000 Wide Open IV BOL[facility] ONE Rx#: [id number] Oral 1000 450 400 Output: Void Amount 450 250 Other: Meal Breakfast Percent of Meal Consumed 75% Feeding Ability Independent Urine Appearance Cloudy Cloudy Urine Color Bright Yellow Dark Yellow Urine Odor Foul Strong General appearance: no acute distress Exam: Alert oriented Nonlabored breathing No anxiety Nontender abdomen Medical - PN: Obj Da - Labs CBC & Chem 7: 08/20/19 05:45 08/20/19 05:45 Labs: Abnormal Lab Results 08/19/19 08/18/19 08/18/19 05:45 12:45 11:37 WBC 13.3 H Hct MPV 10.8 H Gran # Lymph # (Auto) [place] # (Auto) BUN 27 H Glucose 112 H Urine Protein 30 A Urine Urobilinogen 2.0 A Ur Leukocyte Esterase 250 A Urine RBC 4 H Urine WBC > 182 H Calcium Oxalate Crystal Many A Urine Bacteria Many A Hyaline Casts 5 H 08/18/19 11:37 WBC 21.5 H Hct 46.1 H MPV 10.6 H Gran # 14.57 H Lymph # (Auto) 5.64 H [place] # (Auto) 1.09 H BUN Glucose Urine Protein Urine Urobilinogen Ur Leukocyte Esterase Urine RBC Urine WBC Calcium Oxalate Crystal Urine Bacteria Hyaline Casts Meds: Medications Acetaminophen (Tylenol) 650 mg PO Q4-6HP PRN; Protocol PRN Reason: Per Pain Protocol/Fever > 101 Albuterol Sulfate (Ventolin) 1 puff IH Q4HP PRN PRN Reason: COPD Bisacodyl (Dulcolax) 10 mg MD Q2-3DAYS PRN PRN Reason: Constipation Clopidogrel Bisulfate (Plavix) 75 mg PO DAILY PENDING SALE TO [facility] Last Admin: 08/19/19 09:05 Dose: 75 mg Documented by: Docusate Sodium (Colace) 100 mg PO BID [facility]ENDING S[facility] TO [facility] Last Admin: 08/19/19 09:05 Dose: 100 mg Documented by: Heparin Sodium (Porcine) (Heparin) 5,000 unit SQ Q12 PENDING SALE TO [facility] Last Admin: 08/19/19 09:05 Dose: 5,000 unit Documented by: Hydralazine HCl (Apresoline) 10 mg IV Q4-6HP PRN PRN Reason: Hypertension Hydralazine HCl (Apresoline) 25 mg PO BID [facility] Last Admin: 08/19/19 09:05 Dose: 25 mg Documented by: Hydromorphone HCl (Dilaudid) 0 mg IV Q4HP PRN; Protocol PRN Reason: Per Pain Protocol Last Admin: 08/19/19 04:30 Dose: 0.5 mg Documented by: Sodium Chloride (Sodium Chloride 0.9%) 1,000 mls @ 50 mls/hr IV .Q20H PENDING SALE TO [facility] Stop: 08/21/19 05:25 Last Admin: 08/18/19 17:41 Dose: 50 mls/hr Documented by: Magnesium Sulfate (Magnesium Sulfate) 2 gm in 50 mls @ 50 mls/hr IV UD PRN PRN Reason: MG = or < 1.7 Ceftriaxone Sodium 2 gm/ (Dextrose) 50 mls @ 100 mls/hr IV Q24H [facility]END[facility] TO [facility]; Protocol Last Admin: 08/18/19 20:31 Dose: 100 mls/hr Documented by: Acetaminophen (Ofirmev) 650 mg in 65 mls @ 130 mls/hr IV Q6HP PRN; Protocol PRN Reason: Per Pain Protocol/Fever > 101 Last Admin: 08/19/19 03:44 Dose: 130 mls/hr Documented by: Iron Carb/Multivit/[place]/Folic Acid (Multivitamin W/Minerals) 1 tab PO DAILY [facility] Last Admin: 08/19/19 09:05 Dose: 1 tab Documented by: Lisinopril (Zestril) 20 mg PO DAILY [facility] Last Admin: 08/19/19 09:05 Dose: 20 mg Documented by: Melatonin (Melatonin 3mg Tablet) 3 mg PO HSP PRN PRN Reason: Insomnia Nicotine (Nicoderm) 21 mg TOPICAL DAILY@1000 P[facility] S[facility] TO [facility] Last Admin: 08/19/19 09:05 Dose: Not Given Documented by: Ondansetron HCl (Zofran Odt) 4 mg SL Q4-6HP PRN; Protocol PRN Reason: Nausea And Vomiting Ondansetron HCl (Zofran) 4 mg IV Q4-6HP PRN; Protocol PRN Reason: Nausea And Vomiting Polyethylene Glycol (Miralax) 17 gm PO DAILYP PRN PRN Reason: Constipation Potassium Chloride (Klor-Con) 40 meq PO DAILYP PRN PRN Reason: K+ < 3.5 Senna/Docusate Sodium (Senna Plus Tablet) 1 tab PO [facility] Last Admin: 08/18/19 21:30 Dose: 1 tab Documented by: Sodium Chloride (Saline Flush) 10 ml IV Q8 PEND[facility] Last Admin: 08/19/19 05:56 Dose: Not Given Documented by: Trazodone HCl (Desyrel) 300 mg PO [facility] Last Admin: 08/18/19 21:30 Dose: 300 mg Documented by: Triamcinolone Acetonide (Kenalog Cream 0.1%) 1 dose TOPICAL BID [facility] Last Admin: 08/19/19 09:05 Dose: Not Given Documented by: Medical - PN: A/P - Time Spent With Patient Total time spent is greater than 50% in coordination of care (as documented) at patient's floor/unit and/or counseling patient: 25 - 35 minutes (1) Acute pyelonephritis Status: Acute Assessment and plan: * Acute pyonephritis with severe sepsis. White count improved from 21,000 13,000. Continue antibiotic coverage. De-escalate based on sensitivities. * Severe sepsis with endorgan dysfunction-pancultures/antibiotic coverage. Clinically improving. * RUSTAM-secondary to sepsis endorgan dysfunction. Improving renal function. * Tobacco dependence-nicotine patch. * Mild COPD on as needed bronchodilators. * History of CVA on Plavix * Hypertension continue lisinopril once systolics improved and sepsis resolves * Anxiety-continue home dose lorazepam/trazodone/ nortriptyline * Degenerative joint disease continue oxycodone * Full code * Prophylaxis heparin Plan * Continue antibiotic coverage and de-escalate based on sensitivities * Pre-existing medical condition management as above * PT OT/nutrition support * Discharge planning Current Visit: Yes Medical - PN: Qual - Stroke Symptom Onset Unknown: No - VTE Deep Vein Thrombosis/Pulmonary Embolism Present on Admission: No
[2019-08-19] MEDS: 0.9 % SODIUM CHLORIDE 1,000 ML IV SCH ×2 (12:22→14:11)
[2019-08-19] MEDS: cefTRIAXone 2 GM in DEXTROSE 5% IN WATER 50 ML IV SCH (15:08)
[2019-08-19] MEDS: SENNOSIDES/DOCUSATE SODIUM 1 TAB TABLET PO SCH (20:46)
[2019-08-19] MEDS: traZODone HCL 150 MG TABLET PO SCH (20:46)
[2019-08-20] MEDS: HYDROmorphone 0.5 MG/0.5 ML SYRINGE IV PRN ×2 (04:16→08:17)
[2019-08-20] MEDS: 0.9 % SODIUM CHLORIDE 10 ML SYRINGE IV SCH (06:12)
[2019-08-20 06:53] LABS: Hematocrit 42.4 % (34.1-44.9); Hemoglobin 13.4 g/dL (11.2-15.7); Mean Cell Volume 93.4 fL (80.0-100.0); Mean Corpuscular HGB Conc 31.6 g/dL (31.0-36.0); Mean Platelet Volume 10.6 fL (7.4-10.4); Platelet Count 274 K/mcL (140-440); RBC 4.54 M/mcL (3.59-5.38); WBC 12.4 K/mcL (4.50-11.00)
[2019-08-20 07:10] LABS: ALT/SGPT 20 U/l (0-40); AST/SGOT 16 U/l (0-37); Albumin 3.3 gm/dL (3.2-5.2); Albumin/Globulin Ratio 1.1 (1.0-2.3); Alkaline Phosphatase 89 U/L (39-117); Bilirubin,Direct < 0.2 mg/dL (0.0-0.3); Bilirubin,Total 0.2 mg/dL (0.0-1.0); Blood Urea Nitrogen 14 mg/dl (8-23); Calcium 8.6 mg/dl (8.6-10.4); Carbon Dioxide 24 mmol/L (22-30); Chloride 103 mmol/L (96-108); Globulin 3.1 gm/dL (2.2-3.7); Glomerular Filtration Rate 77; Glucose 103 mg/dL (70-105); Lactate Dehydrogenase 135 U/L (94-250); Phosphorous 2.7 mg/dL (2.7-4.5); Triglycerides 131 mg/dl (<150); Uric Acid 4.5 mg/dL (2.5-8.0)
[2019-08-20] MEDS: TRIAMCINOLONE CREAM 0.1% 15G 1 DOSE TUBE TOPICAL SCH ×3 (07:43→09:12)
[2019-08-20] MEDS: CLOPIDOGREL 75 MG TABLET PO SCH (08:17)
[2019-08-20] MEDS: DOCUSATE SODIUM 100 MG CAPSULE PO SCH (08:17)
[2019-08-20] MEDS: MULTIVIT,THER IRON,CA,FA & MIN 1 TABLET PO SCH (08:17)
[2019-08-20] MEDS: LISINOPRIL 20 MG TABLET PO SCH (08:17)
[2019-08-20] MEDS: hydrALAZINE 25 MG TABLET PO SCH (08:17)
[2019-08-20] MEDS: HEPARIN 5,000 UNIT/ML VIAL SQ SCH (08:17)
[2019-08-20 08:28] LABS: Band Neutrophils % 21 % (0-10); Eosinophils % (Manual) 2 % (0-7); Lymphocytes % 33 % (15-49); Monocytes % (Manual) 8 % (1-12); Platelet Estimate NORMAL (NORMAL); RBC Morphology NORMAL (NORMAL); Segmented Neutrophils % 56 % (38-78)
[2019-08-20] MEDS: NICOTINE 21 MG PATCH TOPICAL SCH (09:13)
[2019-08-20] MEDS: 0.9 % SODIUM CHLORIDE 1,000 ML IV SCH (09:38)
--- NOTE | 2019-08-20 09:50 | Discharge Summary ---
Medical - DS: Prov Patient information: Note initiated : 08/20/19 at 9:48 am Service Date, if different from initiated Date: [] Patient: Debbie Delgado 64 y/o F admitted on 08/18/19 for weakness. Chief Complaint: [] Date of admission: 08/18/19 17:27 Discharge date: 08/20/19 Primary care physician: Shree Keys Consults: 08/18/19 Consult to Physician [CONS] Stat Comment: Consulting Provider: Roger Reyna Reason For Exam: Physician to Consult Medical - DS: Meds - Discharge Medications Prescriptions: Cefdinir 300 mg PO BID #14 cap Transmission Status: Pending to [facility] Active and Home Medications: Home Medications fluoxetine 40 mg capsule 40 mg PO DAILY cap 10/19/14 [History Confirmed 08/18/19 Last Taken 08/18/19 04:00] lisinopril 40 mg tablet 40 mg PO DAILY tab 10/19/14 [History Confirmed 08/18/19 Last Taken 08/18/19 04:00] nortriptyline 10 mg capsule 50 mg PO QHS cap 10/19/14 [History Confirmed 08/18/19 Last Taken 08/17/19 20:00] Clopidogrel [Plavix] 75 mg PO DAILY 02/19/15 [History Confirmed 08/18/19 Last Taken 08/18/19] traZODone HCL [Trazodone HCl] 300 mg PO HS 02/19/15 [History Confirmed 08/18/19 Last Taken 08/14/15] Acetaminophen [Tylenol Arthritis] 650 mg PO Q4HP PRN 08/14/15 [History Confirmed 08/18/19 Last Taken 08/14/15] Acetaminophen [Tylenol] 650 mg GA Q4HP PRN 08/14/15 [History Confirmed 08/18/19 Last Taken 08/14/15] Albuterol Sulfate [Proair Hfa] 8.5 gm IH Q4 PRN 08/14/15 [History Confirmed 08/18/19 Last Taken 08/18/19 05:00] Bisacodyl [Gentle Laxative] 5 mg PO Q24HP PRN 08/14/15 [History Confirmed 08/18/19 Last Taken 08/18/19 05:00] Hydrocodone/APAP 7.5/325Mg [[place] 7.5-325Mg] 1 tab PO Q6HP PRN 08/14/15 [History Confirmed 08/18/19 Last Taken 05/08/19 08:00] LORazepam [Ativan] 0.5 mg PO DAILYP PRN 08/14/15 [History Confirmed 08/18/19 Last Taken 05/07/19] Salmeterol Xinafoate [Serevent] 1 puff INH BID 08/14/15 [History Confirmed 08/18/19 Last Taken 08/18/19 04:00] hydrALAZINE HCL [Hydralazine HCl] 25 mg PO BID 08/14/15 [History Confirmed 08/18/19 Last Taken 08/15/15] oxycodone-acetaminophen 10 mg-325 mg tablet See Rx Instructions PO .Q6-8H PRN #20 tab 08/16/15 [Rx Confirmed 08/18/19 Last Taken 05/08/19] Triamcinolone Cream 0.1% 15G [Kenalog Crm 0.1%] 1 dose TOPICAL BID #60 gm 08/26/17 [Rx Confirmed 08/18/19 Last Taken Unknown] Cefdinir 300 mg PO BID #14 cap 08/20/19 [Rx Last Taken Unknown] Medical - DS: Hosp Hospital Course: Discharge diagnosis * Acute pyonephritis with severe sepsis. Clinically resolved. Continue a ntibiotic for additional 10 days. Discharging home * Severe sepsis with endorgan dysfunction-GNR on cultures. On antibiotic coverage for additional 10 days. Fully resolved. * RUSTAM-clinically resolved. * Tobacco dependence-cessation counseling performed * Mild COPD continue as needed bronchodilators * History of CVA on Plavix * Hypertension resume home medications * Anxiety-continue home dose lorazepam/trazodone/ nortriptyline * Degenerative joint disease continue oxycodone Brief hospital course Ms. Delgado is a 64 year old F with a history of nephrolithiasis/tobacco dependence/HTN and CVA who presents to the ER with 2 days onset of increasing weakness, flank pain and progressive dizziness that initially started on activity progressing to multiple episodes of dizziness today. With increasing concerns patient presents to the ER for evaluation. Initial work-up in the ER was consistent with white count over 21,000/pyuria suggestive of night pyelonephritis in the setting of flank pain and mild RUSTAM. Following pancultures antibiotics were administered. Hospitalist service was consulted for admission At the time evaluation patient is alert but very anxious. She is tachycardic. She was able to endorse history as above. She denies diarrhea, dysuria, bloody urine, joint pain but endorses to myalgia weakness malaise and loss of appetite. She denies nausea/hematemesis or URI symptoms. She denies recent hospitalizations. She further denies changes in medications. 08/18-patient doing well. White count down to 13.3. On antibiotic coverage. Improved flank pain. Creatinine downtrending 2.9. BUN improved. Stable hemodynamics. GNR on cultures. Await sensitivities. Continue crystalloid/antibiotics. Discharge in 24 hours if clinically improved 08/19-patient doing well. No overnight events. Flank pain resolved. Requesting to discharge home. GNR on cultures. Transition to oral cefdinir for additional 10 days. White count normalized. Renal function normalized. Stable hemodynamics. Detailed discharge instructions below. Discharge diagnosis: . - Time Spent with Patient Total time spent providing and/or coordinating discharge services: Greater than 30 minutes Medical - DS: Exam - Constitutional Vitals: Vital Signs Temp Pulse Resp BP Pulse Ox 08/20/19 06:56 97.7 F 91 H 18 141/84 93 08/20/19 04:15 97.8 F 88 20 158/91 94 08/19/19 23:50 97.8 F 91 H 16 146/90 92 08/19/19 20:00 88 08/19/19 19:10 98.2 F 92 H 20 146/83 91 08/19/19 15:46 97.4 F 95 H 20 130/87 92 08/19/19 12:00 98.3 F 105 H 18 128/78 91 Intake and Output 08/19/19 08/20/19 08/20/19 21:59 05:59 13:59 Intake Total 800 100 50 Output Total 425 325 Balance 375 -225 50 Intake: IV 50 Rocephin 2 gm In Dextrose 5% in 50 Water 50 ml @ 100 mls/hr IV Q24H [facility] Rx#:[id number] Oral 800 100 Output: Void Amount 425 325 Other: Urine Appearance Clear Clear Clear Urine Color Dark Yellow Dark Yellow Dark Yellow Urine Odor Strong Weight 209 lb 11.2 oz Medical - DS: Data Labs on day of discharge: Labs from last 24 hours 08/20/19 08/20/19 05:45 05:45 WBC 12.4 H RBC 4.54 Hgb 13.4 Hct 42.4 MCV 93.4 MCH 29.5 MCHC 31.6 RDW 12.0 Plt Count 274 MPV 10.6 H Total Counted 100 Seg Neutrophils % 56 Band Neutrophils % 21 H Lymphocytes % 33 Monocytes % (Manual) 8 Eosinophils % (Manual) 2 Platelet Estimate Normal RBC Morphology Normal Sodium 138 Potassium 3.9 Chloride 103 Carbon Dioxide 24 Anion Gap 11.0 BUN 14 Creatinine 0.8 GFR Calculation 77 Glucose 103 Uric Acid 4.5 Calcium 8.6 Phosphorus 2.7 Magnesium 2.1 Total Bilirubin 0.2 Direct Bilirubin < 0.2 GGT 29 AST 16 ALT 20 Alkaline Phosphatase 89 Lactate Dehydrogenase 135 Total Protein 6.4 Albumin 3.3 Globulin 3.1 Albumin/Globulin Ratio 1.1 Triglycerides 131 Preliminary micro results at discharge 08/18/19 12:45 Urine Culture - Preliminary Urine - Clean Void Mid-Stream Gram negative bacillus Medical - DS: A/P - Patient/Caregiver Discharge Instructions Activity: increase activity as tolerated Diet: Regular Diet Additional Instructions: Follow-up PCP in 5 days Antibiotic for additional 10 days I recommend primary care physician to check CBC BMP UA as a posthospital follow- up in 1 week. Continue aggressive bowel regimen to prevent constipation Continue fall precautions All meals on chair sitting upright at 90 degrees to prevent aspiration Return to ER if worsening fever chills shortness of breath, diarrhea, bleeding Review risk and side effect profile of medications including antibiotics. Side effect may include mild to severe reaction including rash, diarrhea, cdiff and even which can be prevented by close follow-up with PCP and monitoring for side effects Refrain from smoking Continue diet and activity as advised Discussed importance of medication adherence Please review medication list with patient prior to discharge Please schedule follow-up with PCP/Providers prior to discharge and provide printouts Prescriptions: Cefdinir 300 mg PO BID #14 cap Transmission Status: Pending to [facility] - Problem Maintenance (1) Acute pyelonephritis Status: Acute - Follow up Plan Follow up with: Cathryn Zamora MD [Referring] - Disposition: Home, Self-Care Prognosis: Good Rehab Potential: Fair I certify that the patient requires SNF services: No Overall status at discharge: patient is progressing back to baseline Medical - DS: Qual - VTE Deep Vein Thrombosis/Pulmonary Embolism Present on Admission: No
== END 2019-08-20 11:09 | disposition home or self-care (01) | DRG 872 ==
LOC: ED 11:10 → MEDSUR 17:27
PROVIDERS: ADMIT Internal Medicine; ATTEND Internal Medicine

== ENCOUNTER 2020-12-09 09:16 | Inpatient (IN) ==
[2020-12-09] MEDS ORDERED: IOPAMIDOL 100 ML BOTTLE IV ONE ×2 (09:17→18:40)
[2020-12-09] MEDS ORDERED: ALBUTEROL SULFATE 200 PUFF INHALER INH ONE (09:35)
[2020-12-09] MEDS ORDERED: ONDANSETRON 4 MG/2 ML VIAL IV ONE (09:35)
[2020-12-09] MEDS ORDERED: morphine 2 MG/ML VIAL IV PRN (09:35)
[2020-12-09] MEDS ORDERED: 0.9 % SODIUM CHLORIDE 500 ML IV ONE (09:35)
--- NOTE | 2020-12-09 10:04 | Emergency Department Note ---
Fall HPI General Chief Complaint: Fall Stated Complaint: multiple falls recently Time Seen by Provider: 12/09/20 09:30 Source: patient, EMS, RN notes reviewed and old records reviewed Mode of arrival: EMS Limitations: no limitations History of Present Illness HPI Narrative: Narrative: 65-year-old female complaining of left hip pain status post fall. Has past medical history of multiple falls recently with hip pain fell today with increased hip pain and unable to get up. Unable to bear weight. Pain with range of motion. Is slightly confused. MD Complaint: fall Onset (ago): week(s) Fall From: standing Place Fall Occurred: home Loss of Consciousness: none and unsure Prolonged Down Time?: unclear Context: tripped/slipped and history of frequent falls Location of injury - extremities: Left: thigh (Hip) Severity: moderate Quality: aching Associated symptoms (after fall): Reports unable to walk and confusion Related Data Home Medications Medication Instructions Recorded Confirmed lisinopril 40 mg tablet 40 mg PO DAILY tab 10/19/14 12/09/20 nortriptyline 10 mg capsule 50 mg PO QHS cap 10/19/14 12/09/20 clopidogrel 75 mg PO DAILY 02/19/15 12/09/20 trazodone 300 mg PO HS 02/19/15 12/09/20 albuterol sulfate 8.5 gm IH Q4 PRN 08/14/15 12/09/20 diclofenac sodium 1 % topical gel 2 g TOPICAL QID 12/15/19 12/09/20 fluoxetine 40 mg capsule 80 mg PO QAM cap 12/15/19 12/09/20 ipratropium bromide 17 2 puff INHALATION QID PRN 12/15/19 12/09/20 mcg/actuation HFA aerosol inhaler omeprazole 20 mg tablet,delayed 40 mg PO QDAY 12/15/19 12/09/20 release polyethylene glycol 3350 17 17 g PO QDAY 12/15/19 12/09/20 gram/dose oral powder tizanidine 4 mg tablet 12 mg PO HS PRN 12/15/19 12/09/20 triamterene 37.5 1 tab PO QDAY 12/15/19 12/09/20 mg-hydrochlorothiazide 25 mg tablet cilostazol 100 mg tablet 100 mg PO ONCE tab 12/22/19 12/09/20 fluticasone 250 mcg-salmeterol 50 1 inh INHALATION BID 08/19/20 12/09/20 mcg/dose blistr powdr for inhalation metoprolol tartrate 25 mg tablet 25 mg PO BID 08/19/20 12/09/20 salmeterol 50 mcg/dose blister 1 inh INHALATION BID PRN 08/19/20 12/09/20 powder for inhalation Previous Rx's Medication Instructions Recorded ondansetron 4 mg PO Q6H PRN #14 tab 10/04/19 docusate sodium 100 mg PO BID #60 cap 12/09/20 hydrocodone-acetaminophen 1 - 2 tab PO Q4HP PRN #75 tab 12/09/20 Allergies Allergy/AdvReac Type Severity Reaction Status Date / Time nitrofurantoin Allergy Severe Hallucinating, Verified 12/09/20 09:32 [From Macrobid] Nausea, Vomiting Review of Systems ROS ROS Narrative: Narrative: All systems ED: reviewed and negative except as stated. PFSH Narrative Patient History Narrative: Narrative: Medical/Surgical/Family History All Active Problems (Updated 12/09/20 @ 12:28 by Grey Oliveira MD) Closed hip fracture (Acute) History of bronchitis (Acute) History of alcohol abuse (Chronic) Central sensitization to pain (Chronic) Myofascial pain syndrome (Chronic) History of hysterectomy (Chronic) History of multiple concussions (Chronic) Allergic rhinitis (Chronic) Persistent insomnia (Chronic) Methamphetamine abuse (Chronic ~05/21/20) Cervical sprain (Chronic) Contusion of head (Chronic) Low back strain (Chronic) Contusion of hip (Chronic) Postmenopausal atrophic vaginitis (Chronic) OAB (overactive bladder) (Chronic) Acute pyelonephritis (Chronic) Bipolar disorder (Chronic) Asthma (Chronic) Hayfever (Chronic) Hx of tubal ligation (Chronic) SHAMA (obstructive sleep apnea) (Chronic ~12/23/17) Recurrent major depression (Chronic) PVD (peripheral vascular disease) (Chronic) Impingement syndrome of right shoulder (Chronic ~02/16/17) GERD (gastroesophageal reflux disease) (Chronic) Lumbar disc prolapse with compression radiculopathy (Chronic) Anxiety disorder (Chronic) COPD (chronic obstructive pulmonary disease) (Chronic) Low back pain (Chronic ~09/26/19) Insomnia (Chronic) History of UTI (Chronic) Dysuria (Chronic) History of cystoscopy (Chronic 08/15/15) Contusion, arm, upper (Chronic) Dermatitis (Chronic) Skin ulcer (Chronic) Pyelonephritis, acute (Chronic) Leukocytosis (Chronic) Abdominal pain, chronic, bilateral lower quadrant (Chronic) Nausea & vomiting (Chronic) Contusion of ear (Chronic) UTI (urinary tract infection) (Chronic) Hypoxia (Chronic) Fall at home (Chronic) CVD (cerebrovascular disease) (Chronic) Tobacco abuse (Chronic) History of ureter repair (Chronic) History of lithotripsy (Chronic ~06/2013) History of renal stent (Chronic) History of partial hysterectomy (Chronic) History of continuous positive airway pressure (CPAP) therapy (Chronic) History of colonoscopy (Chronic ~07/25/10) History of appendectomy (Chronic) Ureteral calculus (Chronic) Renal calculi (Chronic) Nephrolithiasis (Chronic) Kidney stones (Chronic) Hypertension, essential (Chronic) Hematuria, microscopic (Chronic) Flank pain (Chronic) CTS (carpal tunnel syndrome) (Chronic) Back pain (Chronic) Medical History Abdominal pain, chronic, bilateral lower quadrant Acute pyelonephritis Allergic rhinitis Anxiety disorder Asthma Back pain Bipolar disorder Central sensitization to pain Cervical sprain Contusion of ear Contusion of head Contusion of hip Contusion, arm, upper COPD (chronic obstructive pulmonary disease) CTS (carpal tunnel syndrome) CVD (cerebrovascular disease) Dermatitis Dysuria Fall at home Flank pain right GERD (gastroesophageal reflux disease) Hayfever Hematuria, microscopic History of alcohol abuse History of bronchitis History of multiple concussions History of UTI Hypertension, essential Hypoxia Impingement syndrome of right shoulder (~02/16/17) Insomnia Persistent Kidney stones Leukocytosis Low back pain (~09/26/19) Low back strain Lumbar disc prolapse with compression radiculopathy Methamphetamine abuse (~05/21/20) Myofascial pain syndrome Nausea & vomiting Nephrolithiasis OAB (overactive bladder) SHAMA (obstructive sleep apnea) (~12/23/17) Persistent insomnia Postmenopausal atrophic vaginitis PVD (peripheral vascular disease) Pyelonephritis, acute Recurrent major depression Renal calculi 08/10/2013 Skin ulcer Tobacco abuse Ureteral calculus 08/10/2013 UTI (urinary tract infection) Surgical History History of appendectomy History of colonoscopy (~07/25/10) History of continuous positive airway pressure (CPAP) therapy History of cystoscopy (08/15/15) retrograde pyelogram, ureteroscopy, laser lithotripsy, stone removal History of hip surgery (~05/14/20) History of hysterectomy History of lithotripsy (~06/2013) Right kidney, performed at [place] History of partial hysterectomy History of renal stent Right kidney History of shoulder surgery (~05/14/20) History of ureter repair Right Hx of tubal ligation Family History Aunt History of coronary artery bypass surgery Grandmother Diabetes mellitus Maternal Mother Anxiety Father , Age 75 Coronary atherosclerosis Brother Anxiety Social History Smoking Status: Current every day smoker Alcohol Intake Frequency: former alcohol drinker Substance Use: marijuana and other Exam Narrative Narrative: Narrative: General Limitations: no limitations General appearance: Present alert, in distress, malaise, sleepy and thin Head Head: Present atraumatic and normocephalic Eye Eye: Present normal appearance, PERRL and EOMI ENT ENT: Present normal exam and mucous membranes dry Neck Neck: Present normal inspection and full ROM; Absent tenderness Chest Chest: Present normal inspection; Absent tenderness Respiratory Respiratory: Present wheezes; Absent respiratory distress Cardiovascular Cardiovascular: Present regular rate and normal rhythm; Absent systolic murmur Adbominal Abdominal: Present soft; Absent distention, tenderness, guarding and rebound Extremities Extremities: Present tenderness (Left hip and thigh tender to palpation) and normal capillary refill; Absent full ROM, pedal edema and pretibial edema Back Back: Present normal inspection; Absent tenderness, CVA tenderness (R) and CVA tenderness (L) Neurological Neurological: Present alert; Absent motor sensory deficit Psychiatric Psychiatric: Present agitated and anxious Skin Skin: Present warm (WNL); Absent rash Course Vital Signs Vital signs: Vital Signs Temperature 98.3 F 12/09/20 09:29 Pulse Rate 89 12/09/20 09:29 Respiratory Rate 14 12/09/20 09:29 Blood Pressure 105/72 12/09/20 09:29 Pulse Oximetry (%) 82 L 12/09/20 09:29 Temperature 97.8 F 12/10/20 04:04 Pulse Rate 80 12/10/20 05:55 Respiratory Rate 16 12/10/20 05:55 Blood Pressure 97/58 12/10/20 04:04 Pulse Oximetry (%) 94 12/10/20 05:55 MDM MDM Narrative Medical decision making narrative: Narrative: 65-year-old female with hip fracture after fall. Will discuss with orthopedic surgery. Discussed patient Dr. Devries of inpatient medicine who graciously agreed to accept patient. Differential Diagnosis Differential Diagnosis: Fracture dislocation sprain Medical Records Medical records reviewed: Yes I reviewed the patient's medical records. Lab Data Lab results reviewed: Yes I reviewed the patient's lab results. Result diagrams: 12/09/20 10:08 12/09/20 10:08 Labs: Lab Results 12/09/20 12/09/20 12/09/20 Range/Units 10:02 10:08 10:08 WBC 14.3 H (4.5-11.0) K/mcL RBC 4.49 (3.59-5.38) M/mcL Hgb 13.2 (11.2-15.7) g/dL Hct 39.6 (34.1-44.9) % MCV 88.2 (80.0-100.0) fL MCH 29.4 (26.0-34.0) pg MCHC 33.3 (31.0-36.0) g/dL RDW 11.9 (11.5-14.5) % Plt Count 267 (140-440) K/mcL MPV 11.2 H (7.4-10.4) fL Neut % (Auto) 83.2 H (38.0-78.0) % Lymph % (Auto) 9.5 L (15.5-49.0) % [place] % (Auto) 5.7 (1.0-12.0) % Eos % (Auto) 1.3 (0.0-7.0) % Baso % (Auto) 0.3 (0.0-2.0) % Lymph # (Auto) 1.36 L (1.50-4.80) K/mcL [place] # (Auto) 0.82 (0.10-0.90) K/mcL Eos # (Auto) 0.18 (0.00-0.70) K/mcL Baso # (Auto) 0.04 (0.00-0.30) K/mcL Absolute Neutrophils 11.88 H (1.80-8.00) K/mcL PT 14.0 (11.9-14.5) sec INR 1.0 (0.9-1.1) VBG Lactic Acid (0.5-2.0) mmol/L Sodium 133 (133-145) mmol/L Potassium 3.4 (3.3-5.1) mmol/L Chloride 95 L (96-108) mmol/L Carbon Dioxide 29 (22-30) mmol/L Anion Gap 9.0 (8.0-16.0) BUN 19 (8-23) mg/dL Creatinine 1.0 (0.6-1.1) mg/dL GFR Calculation 58 Glucose 131 H (70-105) mg/dL Calcium 9.5 (8.6-10.4) mg/dL Total Bilirubin 0.5 (0.1-1.0) mg/dL AST 18 (<32) U/L ALT 14 (<40) U/L Alkaline Phosphatase 119 H (39-117) U/L C-Reactive Protein (0.03-0.80) mg/dL NT-Pro-B Natriuret Pep (<125.0) pg/mL Total Protein 7.6 (5.9-8.4) gm/dL Albumin 3.2 (3.2-5.2) gm/dL Globulin 4.4 H (2.2-3.7) gm/dL Albumin/Globulin Ratio 0.7 L (1.0-2.3) Procalcitonin (<0.10) ng/mL Urine Color Urine Appearance (Clear) Urine pH (5.0-9.0) Ur Specific [place] (1.000-1.035) Urine Protein (Negative) mg/dL Urine Glucose (UA) (Negative) mg/dL Urine Ketones (Negative) mg/dL Urine Occult Blood (Negative) mg/dL Urine Nitrate (Negative) Urine Bilirubin (Negative) mg/dL Urine Urobilinogen mg/dL Ur Leukocyte Esterase (Negative) /uL Urine RBC (0-3) /hpf Urine WBC (0-4) /hpf Ur Squamous Epith Cells (0-4) /hpf Ur Transition Epith Cell (0-2) /hpf Triple Phos Crystals (None) /hpf Urine Bacteria (0) /hpf Hyaline Casts (0-2) /lph Urine Mucus (None) /hpf Ur Culture Indicated? Urine Opiates Screen Ur Oxycodone Screen Urine Methadone Screen Ur Methadone Confirm Ur Barbiturates Screen Ur Barbiturate Confirm Ur Phencyclidine Scrn Urine PCP Confirm Ur Amphetamines Screen U Benzodiazepines Scrn U Benzodiazepine Confm Urine Cocaine Screen Urine Cocaine Confirm U Cannabinoids Confirm U Marijuana (THC) Screen Ethyl Alcohol (<0.010) gm/dL 12/09/20 12/09/20 12/09/20 Range/Units 10:08 10:08 10:08 WBC (4.5-11.0) K/mcL RBC (3.59-5.38) M/mcL Hgb (11.2-15.7) g/dL Hct (34.1-44.9) % MCV (80.0-100.0) fL MCH (26.0-34.0) pg MCHC (31.0-36.0) g/dL RDW (11.5-14.5) % Plt Count (140-440) K/mcL MPV (7.4-10.4) fL Neut % (Auto) (38.0-78.0) % Lymph % (Auto) (15.5-49.0) % [place] % (Auto) (1.0-12.0) % Eos % (Auto) (0.0-7.0) % Baso % (Auto) (0.0-2.0) % Lymph # (Auto) (1.50-4.80) K/mcL [place] # (Auto) (0.10-0.90) K/mcL Eos # (Auto) (0.00-0.70) K/mcL Baso # (Auto) (0.00-0.30) K/mcL Absolute Neutrophils (1.80-8.00) K/mcL PT (11.9-14.5) sec INR (0.9-1.1) VBG Lactic Acid 0.7 (0.5-2.0) mmol/L Sodium (133-145) mmol/L Potassium (3.3-5.1) mmol/L Chloride (96-108) mmol/L Carbon Dioxide (22-30) mmol/L Anion Gap (8.0-16.0) BUN (8-23) mg/dL Creatinine (0.6-1.1) mg/dL GFR Calculation Glucose (70-105) mg/dL Calcium (8.6-10.4) mg/dL Total Bilirubin (0.1-1.0) mg/dL AST (<32) U/L ALT (<40) U/L Alkaline Phosphatase (39-117) U/L C-Reactive Protein 9.50 H (0.03-0.80) mg/dL NT-Pro-B Natriuret Pep 221.6 H (<125.0) pg/mL Total Protein (5.9-8.4) gm/dL Albumin (3.2-5.2) gm/dL Globulin (2.2-3.7) gm/dL Albumin/Globulin Ratio (1.0-2.3) Procalcitonin (<0.10) ng/mL Urine Color Urine Appearance (Clear) Urine pH (5.0-9.0) Ur Specific [place] (1.000-1.035) Urine Protein (Negative) mg/dL Urine Glucose (UA) (Negative) mg/dL Urine Ketones (Negative) mg/dL Urine Occult Blood (Negative) mg/dL Urine Nitrate (Negative) Urine Bilirubin (Negative) mg/dL Urine Urobilinogen mg/dL Ur Leukocyte Esterase (Negative) /uL Urine RBC (0-3) /hpf Urine WBC (0-4) /hpf Ur Squamous Epith Cells (0-4) /hpf Ur Transition Epith Cell (0-2) /hpf Triple Phos Crystals (None) /hpf Urine Bacteria (0) /hpf Hyaline Casts (0-2) /lph Urine Mucus (None) /hpf Ur Culture Indicated? Urine Opiates Screen Ur Oxycodone Screen Urine Methadone Screen Ur Methadone Confirm Ur Barbiturates Screen Ur Barbiturate Confirm Ur Phencyclidine Scrn Urine PCP Confirm Ur Amphetamines Screen U Benzodiazepines Scrn U Benzodiazepine Confm Urine Cocaine Screen Urine Cocaine Confirm U Cannabinoids Confirm U Marijuana (THC) Screen Ethyl Alcohol (<0.010) gm/dL 12/09/20 12/09/20 12/09/20 Range/Units 10:08 10:09 12:50 WBC (4.5-11.0) K/mcL RBC (3.59-5.38) M/mcL Hgb (11.2-15.7) g/dL Hct (34.1-44.9) % MCV (80.0-100.0) fL MCH (26.0-34.0) pg MCHC (31.0-36.0) g/dL RDW (11.5-14.5) % Plt Count (140-440) K/mcL MPV (7.4-10.4) fL Neut % (Auto) (38.0-78.0) % Lymph % (Auto) (15.5-49.0) % [place] % (Auto) (1.0-12.0) % Eos % (Auto) (0.0-7.0) % Baso % (Auto) (0.0-2.0) % Lymph # (Auto) (1.50-4.80) K/mcL [place] # (Auto) (0.10-0.90) K/mcL Eos # (Auto) (0.00-0.70) K/mcL Baso # (Auto) (0.00-0.30) K/mcL Absolute Neutrophils (1.80-8.00) K/mcL PT (11.9-14.5) sec INR (0.9-1.1) VBG Lactic Acid (0.5-2.0) mmol/L Sodium (133-145) mmol/L Potassium (3.3-5.1) mmol/L Chloride (96-108) mmol/L Carbon Dioxide (22-30) mmol/L Anion Gap (8.0-16.0) BUN (8-23) mg/dL Creatinine (0.6-1.1) mg/dL GFR Calculation Glucose (70-105) mg/dL Calcium (8.6-10.4) mg/dL Total Bilirubin (0.1-1.0) mg/dL AST (<32) U/L ALT (<40) U/L Alkaline Phosphatase (39-117) U/L C-Reactive Protein (0.03-0.80) mg/dL NT-Pro-B Natriuret Pep (<125.0) pg/mL Total Protein (5.9-8.4) gm/dL Albumin (3.2-5.2) gm/dL Globulin (2.2-3.7) gm/dL Albumin/Globulin Ratio (1.0-2.3) Procalcitonin 0.07 (<0.10) ng/mL Urine Color Yellow Urine Appearance Cloudy A (Clear) Urine pH 8.0 (5.0-9.0) Ur Specific [place] 1.011 (1.000-1.035) Urine Protein Negative (Negative) mg/dL Urine Glucose (UA) Negative (Negative) mg/dL Urine Ketones Negative (Negative) mg/dL Urine Occult Blood 0.20 (Negative) mg/dL Urine Nitrate Negative (Negative) Urine Bilirubin Negative (Negative) mg/dL Urine Urobilinogen Negative mg/dL Ur Leukocyte Esterase 500 A (Negative) /uL Urine RBC 60 H (0-3) /hpf Urine WBC 37 H (0-4) /hpf Ur Squamous Epith Cells 1 (0-4) /hpf Ur Transition Epith Cell 1 (0-2) /hpf Triple Phos Crystals Many A (None) /hpf Urine Bacteria Many A (0) /hpf Hyaline Casts 5 H (0-2) /lph Urine Mucus Few A (None) /hpf Ur Culture Indicated? yes Urine Opiates Screen Ur Oxycodone Screen Urine Methadone Screen Ur Methadone Confirm Ur Barbiturates Screen Ur Barbiturate Confirm Ur Phencyclidine Scrn Urine PCP Confirm Ur Amphetamines Screen U Benzodiazepines Scrn U Benzodiazepine Confm Urine Cocaine Screen Urine Cocaine Confirm U Cannabinoids Confirm U Marijuana (THC) Screen Ethyl Alcohol < 0.010 (<0.010) gm/dL 12/09/20 Range/Units 12:50 WBC (4.5-11.0) K/mcL RBC (3.59-5.38) M/mcL Hgb (11.2-15.7) g/dL Hct (34.1-44.9) % MCV (80.0-100.0) fL MCH (26.0-34.0) pg MCHC (31.0-36.0) g/dL RDW (11.5-14.5) % Plt Count (140-440) K/mcL MPV (7.4-10.4) fL Neut % (Auto) (38.0-78.0) % Lymph % (Auto) (15.5-49.0) % [place] % (Auto) (1.0-12.0) % Eos % (Auto) (0.0-7.0) % Baso % (Auto) (0.0-2.0) % Lymph # (Auto) (1.50-4.80) K/mcL [place] # (Auto) (0.10-0.90) K/mcL Eos # (Auto) (0.00-0.70) K/mcL Baso # (Auto) (0.00-0.30) K/mcL Absolute Neutrophils (1.80-8.00) K/mcL PT (11.9-14.5) sec INR (0.9-1.1) VBG Lactic Acid (0.5-2.0) mmol/L Sodium (133-145) mmol/L Potassium (3.3-5.1) mmol/L Chloride (96-108) mmol/L Carbon Dioxide (22-30) mmol/L Anion Gap (8.0-16.0) BUN (8-23) mg/dL Creatinine (0.6-1.1) mg/dL GFR Calculation Glucose (70-105) mg/dL Calcium (8.6-10.4) mg/dL Total Bilirubin (0.1-1.0) mg/dL AST (<32) U/L ALT (<40) U/L Alkaline Phosphatase (39-117) U/L C-Reactive Protein (0.03-0.80) mg/dL NT-Pro-B Natriuret Pep (<125.0) pg/mL Total Protein (5.9-8.4) gm/dL Albumin (3.2-5.2) gm/dL Globulin (2.2-3.7) gm/dL Albumin/Globulin Ratio (1.0-2.3) Procalcitonin (<0.10) ng/mL Urine Color Urine Appearance (Clear) Urine pH (5.0-9.0) Ur Specific [place] (1.000-1.035) Urine Protein (Negative) mg/dL Urine Glucose (UA) (Negative) mg/dL Urine Ketones (Negative) mg/dL Urine Occult Blood (Negative) mg/dL Urine Nitrate (Negative) Urine Bilirubin (Negative) mg/dL Urine Urobilinogen mg/dL Ur Leukocyte Esterase (Negative) /uL Urine RBC (0-3) /hpf Urine WBC (0-4) /hpf Ur Squamous Epith Cells (0-4) /hpf Ur Transition Epith Cell (0-2) /hpf Triple Phos Crystals (None) /hpf Urine Bacteria (0) /hpf Hyaline Casts (0-2) /lph Urine Mucus (None) /hpf Ur Culture Indicated? Urine Opiates Screen Suspect positive A Ur Oxycodone Screen None detected Urine Methadone Screen None detected Ur Methadone Confirm TNP Ur Barbiturates Screen None detected Ur Barbiturate Confirm TNP Ur Phencyclidine Scrn None detected Urine PCP Confirm TNP Ur Amphetamines Screen Suspect positive A U Benzodiazepines Scrn None detected U Benzodiazepine Confm TNP Urine Cocaine Screen None detected Urine Cocaine Confirm TNP U Cannabinoids Confirm TNP U Marijuana (THC) Screen None detected Ethyl Alcohol (<0.010) gm/dL ED POC Tests ED POC Tests: ROSMERY - SARS Antigen Negative Radiology Data Radiology results reviewed: Yes I reviewed the patient's radiology results. Radiology results narrative: Hip x-ray IMPRESSION: Impacted left subcapital hip fracture Chest x-ray IMPRESSION: 1. No acute or focal abnormality 2. No interval change Interpreted and Authenticated by: Farrukh Adler 12/09/20 EKG Data EKG #1: EKG attestation: Yes I reviewed and interpreted this EKG. and Yes There are no EKG findings of acute coronary syndrome EKG shows normal: sinus rhythm Rate: normal (81) Rhythm: NSR Interpretation: normal EKG Pulse Oximetry Data Pulse Ox %: 83 Interpretation: 83% on room air is hypoxic Discharge Plan Patient/Caregiver Discharge Instructions Pt seen by [facility] OPERATOR/PA only: No Clinical Impression: Closed hip fracture Qualifiers: Encounter type: initial encounter Laterality: left Qualified Code(s): S72.002A - Fracture of unspecified part of neck of left femur, initial encounter for closed fracture Activity: ambulate only with your walker and as per physical therapy Patient Disposition: Xfer As Outpt/Obs ([facility]) Condition: Fair Discharge Date/Time: 12/09/20 15:41
--- NOTE | 2020-12-09 10:34 | EKG ---
[facility] Test Date: 2020-12-09 Pat Name: Debbie Delgado Department: ED Room: Gender: Female Shelf Stocker: SB : 1955 Requested By: Grey Oliveira Order Number: [id number] Reading MD: Farhan Calle Measurements Intervals Honor Rate: 81 P: 59 ND: 176 QRS: 27 QRSD: 88 T: 46 QT: 408 QTc: 474 Interpretive Statements SINUS RHYTHM Electronically Signed On 12-09-2020 10:34:26 PDT by Farhan Calle /store/M0/[id number].pdf
--- NOTE | 2020-12-09 10:53 | XRay Report ---
INDICATION: FALL TECHNIQUE: AP supine chest x-ray COMPARISON: Previous chest x-rays dated 08/18/2019, 02/19/2015. Previous chest CT scan dated 08/18/2019 FINDINGS: Lungs:Lungs are negative. No focal pulmonary parenchymal infiltrate or mass Heart, vascular:No significant cardiomegaly. Pulmonary vascularity is normal. No pulmonary edema or pulmonary congestion Mediastinum, erika:No mediastinal widening. No hilar mass Pleura:No pleural fluid. No pleural-based mass or calcification. No hemothorax or pneumothorax identified on this supine radiograph Skeletal:Negative. No detectable rib fractures IMPRESSION: 1. No acute or focal abnormality 2. No interval change Interpreted and Authenticated by: Farrukh Adler 12/09/20
--- NOTE | 2020-12-09 10:56 | XRay Report ---
INDICATION: FALL TECHNIQUE: AP pelvis. AP and crosstable lateral left hip COMPARISON: Previous examination dated 06/04/2014 FINDINGS: Left subcapital density. Appearance is consistent with left subcapital hip fracture. Pelvis is negative. No pelvic fracture. Sacrum is negative. There is degenerative disc disease in the lower lumbar spine. There is a vascular stent in the proximal left superficial femoral artery. IMPRESSION: Impacted left subcapital hip fracture Interpreted and Authenticated by: Farrukh Adler 12/09/20
[2020-12-09 11:08] LABS: Basophils # (Auto) 0.04 K/mcL (0.00-0.30); Basophils % (Auto) 0.3 % (0.0-2.0); Eosinophils # (Auto) 0.18 K/mcL (0.00-0.70); Eosinophils % (Auto) 1.3 % (0.0-7.0); Hematocrit 39.6 % (34.1-44.9); Hemoglobin 13.2 g/dL (11.2-15.7); Lymphocytes # (Auto) 1.36 K/mcL (1.50-4.80); Lymphocytes % (Auto) 9.5 % (15.5-49.0); Mean Cell Volume 88.2 fL (80.0-100.0); Mean Corpuscular HGB Conc 33.3 g/dL (31.0-36.0); Mean Platelet Volume 11.2 fL (7.4-10.4); Monocytes # (Auto) 0.82 K/mcL (0.10-0.90); Monocytes % (Auto) 5.7 % (1.0-12.0); Neutrophils % (Auto) 83.2 % (38.0-78.0); Platelet Count 267 K/mcL (140-440); RBC 4.49 M/mcL (3.59-5.38); Red Cell Distribution Width 11.9 % (11.5-14.5); WBC 14.3 K/mcL (4.5-11.0)
[2020-12-09 11:29] LABS: ALT/SGPT 14 U/L (<40); AST/SGOT 18 U/L (<32); Albumin 3.2 gm/dL (3.2-5.2); Albumin/Globulin Ratio 0.7 (1.0-2.3); Alkaline Phosphatase 119 U/L (39-117); Bilirubin,Total 0.5 mg/dL (0.1-1.0); Blood Urea Nitrogen 19 mg/dL (8-23); Calcium 9.5 mg/dL (8.6-10.4); Carbon Dioxide 29 mmol/L (22-30); Chloride 95 mmol/L (96-108); Globulin 4.4 gm/dL (2.2-3.7); Glomerular Filtration Rate 58; Glucose 131 mg/dL (70-105)
[2020-12-09 11:32] LABS: Alcohol, Blood < 10.0 mg/dL; Alcohol,Blood < 0.010 gm/dL (<0.010)
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
[2020-12-09 13:51] LABS: proBNP 221.6 pg/mL (<125.0)
[2020-12-09 14:10] LABS: Amphetamine Screen,Urine Suspect positive; Barbiturate Screen,Urine None detected; Benzodiazepines Screen,Urine None detected; Cannabinoid Screen,Urine None detected; Cocaine Screen,Urine None detected; Opiate Screen,Urine Suspect Positive; Oxycodone, Urine Screen None detected; Phencyclidine Screen,Urine None detected
[2020-12-09 14:15] LABS: Appearance,Urine CLOUDY (Clear); Bacteria,Urine MANY /hpf (0); Bilirubin,Urine Negative (Negative); Color,Urine Yellow; Culture Indicated,Urine yes; Glucose,Urine (UA) Negative (Negative); Ketones,Urine Negative (Negative); Leukocyte Esterase,Urine 500 /uL (Negative); Mucus,Urine FEW /hpf; Nitrate,Urine Negative (Negative); Protein,Urine Negative (Negative); Specific Gravity,Urine 1.011 (1.000-1.035); Triple Phosphate Crystal,Urine MANY /hpf; Urine Hyaline Cast 5 /lph (0-2); Urine RBC 60 /hpf (0-3); Urine Squamous Epithelial Cell 1 /hpf (0-4); Urine Transitional Epi Cells 1 /hpf (0-2); Urine WBC 37 /hpf (0-4); Urobilinogen,Urine Negative
[2020-12-09] MEDS ORDERED: cefTRIAXone 1 GM VIAL IV ONE ×2 (14:20)
--- NOTE | 2020-12-09 14:43 | Cat Scan Report ---
INDICATION: hypoxia, fall, r/o pe COMPARISON: Chest x-ray dated 12/09/2020 TECHNIQUE: Axial images obtained through the chest. 80ml Isovue 370 injected intravenously, and scanning was performed during pulmonary arterial phase. Sagittally and coronally reformatted images were obtained. MIP reformatted images. FINDINGS: Lungs:There is centrilobular and paraseptal emphysema. There are linear densities of both lung bases consistent with atelectasis or scarring. No focal pulmonary parenchymal consolidation. There is no discrete mass. Mediastinum, vascular:Main pulmonary artery, right pulmonary artery, left pulmonary artery are negative. No intraluminal filling defects. No lobar, segmental, or subsegmental emboli. Main pulmonary artery measures 40 mm in cross-sectional diameter. This is significantly enlarged and is consistent with pulmonary arterial hypertension. Thoracic aorta is negative. No aneurysmal dilatation No pathologic mediastinal or hilar adenopathy Heart:No cardiomegaly. No pericardial effusion. There is coronary artery calcification. No significant reflux of contrast material into the inferior vena cava or hepatic veins Pleura:No significant pleural effusion. No pleural mass or calcification Axilla, supraclavicular regions, chest wall:No pathologic axillary or supraclavicular adenopathy. Musculoskeletal:Negative thoracic spine. No compression fracture. No lytic lesion. No rib or sternal lesions Upper Abdomen:Spleen measures 13.3 cm in AP dimension. Craniocaudal dimension is not measured. There are bilateral adrenal nodules. Left adrenal nodule measures 3.8 cm maximally. This is unchanged since 2014 and is considered benign IMPRESSION: 1. Negative pulmonary CTA. No pulmonary embolism 2. Main pulmonary artery is significantly enlarged consistent with pulmonary arterial hypertension 3. Centrilobular and paraseptal emphysema 4. Bilateral adrenal nodules are considered benign 5. Coronary artery calcification 6. Splenomegaly. Craniocaudal dimension of the spleen is not assessed on this chest CT scan The exam was performed using radiation dose optimization techniques including, but not limited to, automated exposure control, adjustment of the mA and/or kV according to patient size and use of iterative reconstruction technique. Interpreted and Authenticated by: Farrukh Adler 12/09/20
[2020-12-09] MEDS ORDERED: TRANEXAMIC ACID 1,000 MG/10 ML VIAL IV SCH (15:46)
[2020-12-09] MEDS ORDERED: HYDROcodone/APAP 10/325MG TABLET PO PRN (15:46)
[2020-12-09] MEDS ORDERED: FLEETS ADULT ENEMA PR PRN ×2 (15:46→18:40)
[2020-12-09] MEDS ORDERED: LIDOCAINE HCL/PF 100 MG/5 ML SYRINGE IV ONE (15:46)
[2020-12-09] MEDS ORDERED: TEMAZEPAM 15 MG CAPSULE PO PRN (15:46)
[2020-12-09] MEDS ORDERED: BISACODYL 10 MG SUPP.RECT PR PRN ×2 (15:46→18:40)
[2020-12-09] MEDS ORDERED: BENZOCAINE/MENTHOL 1 LOZENGE PO PRN ×2 (15:46→18:40)
[2020-12-09] MEDS ORDERED: HYDROmorphone 1 MG/ML SYRINGE IV PRN (15:46)
[2020-12-09] MEDS ORDERED: POLYETHYLENE GLYCOL 3350 17 GM PACKET PO PRN ×3 (15:46→18:40)
[2020-12-09] MEDS ORDERED: fentaNYL 100 MCG/2 ML VIAL IV ONE (15:46)
[2020-12-09] MEDS ORDERED: PHENYLephrine 1 MG/10 ML SYRINGE (ANEST) ONE (15:46)
[2020-12-09] MEDS ORDERED: ACETAMINOPHEN 325 MG TABLET PO PRN ×3 (15:46→18:40)
[2020-12-09] MEDS ORDERED: ONDANSETRON 4 MG/2 ML VIAL IV PRN ×4 (15:46→18:40)
[2020-12-09] MEDS ORDERED: KETOROLAC 15 MG/ML VIAL IV PRN ×2 (15:46→18:40)
[2020-12-09] MEDS ORDERED: GLYCOPYRROLATE 0.2 MG/ML VIAL IV ONE (15:46)
[2020-12-09] MEDS ORDERED: TRANEXAMIC ACID 1,000 MG/10 ML VIAL ONE (15:46)
[2020-12-09] MEDS ORDERED: DEXAMETHASONE 10 MG/ML VIAL ONE (15:46)
[2020-12-09] MEDS ORDERED: PROPOFOL 200 MG/20 ML VIAL IV ONE (15:46)
[2020-12-09] MEDS ORDERED: KETAMINE 50 MG/ML Syringe (ANEST) IV ONE (15:46)
[2020-12-09] MEDS ORDERED: MAGNESIUM SULFATE 2 GM/50 ML BAG IV ONE (15:46)
[2020-12-09] MEDS ORDERED: MAGNESIUM HYDROXIDE 30 ML ORAL.SUSP PO PRN ×2 (15:46→18:40)
[2020-12-09] MEDS ORDERED: ONDANSETRON 4 MG/2 ML VIAL ONE (15:46)
[2020-12-09] MEDS ORDERED: ePHEDrine 50 MG/5 ML SYRINGE (ANEST) IV ONE (15:46)
--- NOTE | 2020-12-09 15:46 | Brief Operative Note ---
Brief Operative Note Date of procedure: 12/09/20 Pre-op diagnosis: left femoral neck fx Post-op diagnosis: same Procedure: left hip cemented hemiarthroplasty Grafts/Implants: Yes Anesthesia: GETA Complications: none Surgeon: Michael Zamora Hospit[employer] Job Titles: Maxime Gray Estimated blood loss (cc): 50.00 Specimens Removed/Pathology: none sent Condition: stable Disposition: PACU
--- NOTE | 2020-12-09 15:50 | Consultation ---
DATE OF CONSULTATION: 12/09/2020 CHIEF COMPLAINT: Left hip pain. HISTORY OF PRESENT ILLNESS: The patient had multiple same level falls, was injured and was unable to ambulate, was brought to the Emergency Room where she was diagnosed with a left femoral neck fracture with displacement. She does have a significant history of COPD and she wears 1 liter of oxygen most of the time. She uses CPAP at night. She was seen in the Emergency Room where she is requiring about 4 liters of oxygen. She denies shortness of breath or cough. Her noted that she tested positive in the recent past for COVID. She does not show any signs of cough, shortness of breath or fever. REVIEW OF SYSTEMS: She has otherwise been unhealthy--COPD with chronic use of oxygen; on 10-system review as noted by the hospitalist denies any other headaches, chills, nausea, vomiting, cough, chest pain, diarrhea, or dyspnea. PAST MEDICAL HISTORY: Substantial; these include chronic bronchitis, chronic abuse of alcohol, chronic drug abuse with meth, myofascial pain consistent with fibromyalgia, she has had multiple concussions from falls, bipolar disorder. Other disorders that she is currently being treated for is chronic anxiety disorder, asthma, chronic back pain, carpal tunnel, reflux, peripheral vascular disease. PAST SURGICAL HISTORY: Tubal ligation, hypertension, history of hysterectomy, SOCIAL HISTORY: She does live with her . PHYSICAL EXAMINATION: GENERAL: Alert, cooperative, in minimal pain on exam. She gives an excellent history. Her leg is shortened and externally rotated on the left side. She is able to move her toes. LUNGS: She has expiratory wheezes, but no shortness of breath with a respiratory rate of 12. No active cough. She has pain with any motion of the left leg. IMAGING: X-rays of the left hip that shows a displaced femoral neck fracture with severe osteopenia. IMPRESSION: 1. Chronic obstructive pulmonary disease. 2. Left femoral neck fracture. PLAN: Treatment will be a cemented hemiarthroplasty. She was consented for surgery. She understands the risks and the benefits of having the surgery done, the benefit being that she would walk earlier and prevent her from having other medical problems. The risk is that she can have pulmonary emboli. She can have heart attack and stroke. She agrees to proceed. RBRonald:edil Job ID: [id number] Doc ID: [id number] Michael Zamora MD
[2020-12-09] MEDS ORDERED: ceFAZolin 1 GM VIAL IV SCH (16:00)
[2020-12-09] MEDS ORDERED: MEPERIDINE 50 MG/ML VIAL IM PRN (16:42)
[2020-12-09] MEDS ORDERED: ACETAMINOPHEN 1,000 MG/100 ML BAG IV ONE (16:42)
[2020-12-09] MEDS ORDERED: NALOXONE HCL 0.4 MG/ML VIAL IV PRN (16:42)
[2020-12-09] MEDS ORDERED: IPRATROPIUM/ALBUTEROL 3 ML AMPUL.NEB NEB PRN ×2 (16:42→18:40)
[2020-12-09] MEDS ORDERED: LACTATED RINGERS 250 ML IV PRN (16:42)
[2020-12-09] MEDS ORDERED: LABETALOL 5 MG/ML ML IV PRN ×3 (16:42→22:11)
[2020-12-09] MEDS ORDERED: fentaNYL 100 MCG/2 ML VIAL IV PRN (16:42)
[2020-12-09] MEDS ORDERED: METHOCARBAMOL 1,000 MG/10 ML VIAL IV PRN (16:42)
[2020-12-09] MEDS ORDERED: METOPROLOL TARTRATE 5 MG/5 ML VIAL IV PRN (16:42)
[2020-12-09] MEDS ORDERED: PROMETHAZINE 25 MG/ML VIAL IM PRN (16:42)
[2020-12-09] MEDS ORDERED: MEPERIDINE 25 MG/ML VIAL IV PRN (16:42)
[2020-12-09] MEDS ORDERED: LACTATED RINGERS 1,000 ML IV SCH (16:45)
--- NOTE | 2020-12-09 16:52 | Discharge Plan ---
Discharge Instructions - [facility] Patient Instructions Total Hip Protocol: Follow activity instructions as provided by Physical Therapy. Discharge Plan Patient/Caregiver Discharge Instructions Activity: ambulate only with your walker and as per physical therapy Diet: Regular Diet Prescriptions: New docusate sodium 100 mg Capsule 100 mg PO BID Qty: 60 RF: 0 hydrocodone-acetaminophen 10-325 mg Tablet 1 - 2 tab PO Q4HP PRN (Reason: Per Pain Protocol) Qty: 75 RF: 0 No Action nortriptyline 10 mg capsule 50 mg PO QHS RF: 0 lisinopril 40 mg tablet 40 mg PO DAILY RF: 0 fluoxetine 40 mg capsule 80 mg PO QAM RF: 0 Atrovent HFA 17 mcg/actuation HFA aerosol inhaler 2 puff INHALATION QID PRN (Reason: Shortness Of Breath) RF: 0 diclofenac sodium 1 % gel 2 g TOPICAL QID RF: 0 omeprazole 20 mg tablet,delayed release (DR/EC) 40 mg PO QDAY RF: 0 polyethylene glycol 3350 17 gram/dose powder 17 g PO QDAY RF: 0 tizanidine 4 mg tablet 12 mg PO HS PRN (Reason: Pain) RF: 0 triamterene-hydrochlorothiazid 37.5-25 mg tablet 1 tab PO QDAY RF: 0 cilostazol 100 mg tablet 100 mg PO ONCE RF: 0 fluticasone propion-salmeterol [Advair Diskus] 250-50 mcg/dose blister with device 1 inh inhalation BID RF: 0 metoprolol tartrate 25 mg tablet 25 mg PO BID RF: 0 Serevent Diskus 50 mcg/dose blister with device 1 inh inhalation BID PRN (Reason: Shortness Of Breath) RF: 0 clopidogrel 75 MG tablet 75 mg PO DAILY RF: 0 trazodone 300 MG tablet 300 mg PO HS RF: 0 albuterol sulfate 8.5 GM HFA aerosol inhaler 8.5 gm IH Q4 PRN (Reason: copd) RF: 0 ondansetron 4 mg tablet,disintegrating 4 mg PO Q6H PRN (Reason: nausea and vomiting) Qty: 14 RF: 0 mirabegron [Myrbetriq] 25 mg tablet extended release 24 hr 25 mg PO DAILY RF: 0 Other Ambulatory Orders: Physical Therapy DC - [facility] (Routine) Location: None Selected Ordered By: Maxime Gray Toilet Riser Discharge Order (ONCE) Location: None Selected Ordered By: Maxime Gray Walker (ONCE) Location: None Selected Ordered By: Maxime Gray Follow Up Plan Follow up with: Shree Keys [Primary Care Provider] - Maxime Gray PA-C [Physician Doctor Of Nursing Practice] - Patient Disposition: Home, Self-Care Prognosis: Fair Rehab Potential: Good I certify that the patient requires SNF services: No Overall status at discharge: patient is progressing back to baseline Discharge Orders: Discharge Order (Routine); Ordered 12/10/20 Ordered By: Maxime Gray
--- NOTE | 2020-12-09 17:52 | XRay Report ---
INDICATION: Post-Op Total Hip TECHNIQUE: AP pelvis. AP and crosstable lateral left hip COMPARISON: Previous left hip dated 12/09/2020 FINDINGS: Status post left total hip arthroplasty. Normal anatomic alignment demonstrated. Pelvis and right hip are negative. Subdental note is made of a vascular stent in the proximal left thigh consistent with superficial femoral artery. IMPRESSION: Status post left total hip arthroplasty Interpreted and Authenticated by: Farrukh Adler 12/09/20
[2020-12-09] MEDS: LACTATED RINGERS 1,000 ML IV SCH ×3 (18:30→21:50)
[2020-12-09] MEDS ORDERED: SENNOSIDES 1 TABLET PO PRN (18:40)
[2020-12-09] MEDS ORDERED: METOCLOPRAMIDE 10 MG/2 ML VIAL IV PRN (18:40)
[2020-12-09] MEDS ORDERED: HYDROcodone/APAP 5/325MG TABLET PO PRN (18:40)
[2020-12-09] MEDS ORDERED: morphine 4 MG/ML VIAL IV PRN (18:40)
[2020-12-09] MEDS ORDERED: MAGNESIUM SULFATE 2 GM/50 ML BAG IV PRN (18:40)
[2020-12-09] MEDS ORDERED: POTASSIUM CHLORIDE 20 MEQ TABLET PO PRN ×2 (18:40)
[2020-12-09] MEDS ORDERED: POTASSIUM CHLORIDE 40 MEQ in DEXTROSE 5% IN WATER 500 ML IV PRN (18:40)
[2020-12-09] MEDS: ceFAZolin 1 GM VIAL IV SCH (18:45)
[2020-12-09] MEDS ORDERED: DEXAMETHASONE 10 MG/ML VIAL IV ONE (18:56)
[2020-12-09] MEDS ORDERED: REMDESIVIR 200 MG in 0.9 % SODIUM CHLORIDE 250 ML IV ONE (18:56)
[2020-12-09] MEDS: 0.9 % SODIUM CHLORIDE 10 ML SYRINGE IV SCH ×2 (19:35→23:23)
[2020-12-09] MEDS ORDERED: SENNOSIDES 1 TABLET PO SCH (21:00)
[2020-12-09] MEDS ORDERED: SALMETEROL XINAFOATE 1 PUFF INHALER INH SCH (21:00)
[2020-12-09] MEDS ORDERED: DOCUSATE SODIUM 100 MG CAPSULE PO SCH ×2 (21:00)
[2020-12-09] MEDS ORDERED: ASPIRIN 81 MG TAB.CHEW CHEWED SCH (21:00)
[2020-12-09] MEDS ORDERED: 0.9 % SODIUM CHLORIDE 10 ML SYRINGE IV SCH ×2 (22:00)
[2020-12-09] MEDS: SENNOSIDES 1 TABLET PO SCH (23:22)
[2020-12-09] MEDS: ASPIRIN 81 MG TAB.CHEW CHEWED SCH (23:23)
[2020-12-09] MEDS: DOCUSATE SODIUM 100 MG CAPSULE PO SCH (23:23)
[2020-12-09] MEDS: HYDROmorphone 1 MG/ML SYRINGE IV PRN (23:59)
[2020-12-10] MEDS ORDERED: ceFAZolin 1 GM VIAL ONE (03:53)
[2020-12-10] MEDS: ceFAZolin 1 GM VIAL IV SCH (03:55)
[2020-12-10] MEDS: LACTATED RINGERS 1,000 ML IV SCH ×2 (05:31→14:51)
[2020-12-10] MEDS: HYDROcodone/APAP 10/325MG TABLET PO PRN ×4 (05:37→22:18)
[2020-12-10] MEDS: 0.9 % SODIUM CHLORIDE 10 ML SYRINGE IV SCH ×3 (06:21→20:31)
--- NOTE | 2020-12-10 07:31 | Internal Med Progress Note ---
SUBJECTIVE Subjective Patient information: Note initiated : 12/10/20 at 7:28 am Service Date, if different from initiated Date: [] Patient: Debbie Delgado 65 y/o F admitted on 12/09/20 for multiple falls recently. Chief Complaint: [] Interval history: Chief Complaint: [] History of present illness: Ms. Delgado is a 65 year old F Patient is extremely difficult to understand given her edentulous and does not have dentures. Sounds like she is fallen several times recently and has increasing left hip pain. Revealed a left hip fracture. She has a history of COPD and wears 1 L of oxygen at night but not during the day and is on CPAP at night for SHAMA. In the ED when she arrived on room air she was 82% when I went in there and try to drop her she did desat as well. She is on 4 to 6 L currently. She denies shortness of breath or cough. She says she was sick last month and they thought she had Covid but she went to the [facility] and got tested and feels better now. Dr. Vivas for orthopedic surgery was contacted. 12/10 Patient had ORIF yesterday. Patient feeling well today. No new complaints. No cough shortness of breath. On 1.5 L nasal cannula. Review of Systems: denies headache/fever/chills/nausea/vomiting/chest or abdominal pain/diarrhea. Otherwise see above. Constitutional Vitals: Vital Signs Temp Pulse Resp BP Pulse Ox 98.1 F 87 16 110/80 92 12/10/20 07:12 12/10/20 07:12 12/10/20 07:12 12/10/20 07:12 12/10/20 07:12 Period Temp Pulse Resp BP Sys/Sosa Pulse Ox Last 24 Hr 97.2 F-98.3 F 76-95 8-25 91-170/55-157 82-100 Intake and Output 12/09/20 12/10/20 12/10/20 21:59 05:59 13:59 Intake Total 2150 1000 Output Total 325 650 Balance 1825 350 Weight 78.018 kg Intake & Output: Intake & Output 12/09/20 12/10/20 12/10/20 21:59 05:59 13:59 Intake Total 2150 1000 Output Total 325 650 Balance 1825 350 Weight 78.018 kg Intake: IV 850 1000 Sodium Chloride 0.9% 500 ml @ 500 Wide Open IV .Q0M ONE Rx#: [id number] Lactated Ringers 1,000 ml @ 100 1000 mls/hr IV .Q10H [facility] Rx#: [id number] Veklury 200 mg In Sodium 250 Chloride 0.9% 250 ml @ 500 mls/ hr IV ONCE ONE Rx#:[id number] IV - Manual Only 1300 Output: Urine Catheter Amount 200 650 Void Amount 25 Estimated Blood Loss 100 Other: Urine Appearance Clear Clear Uretheral (Hale) Clear Urine Color Bright Yellow Straw Uretheral (Hale) Straw Exam: General: Alert, Awake, No acute Distress Eyes/N/T: EOMI,edentulous, Head/Neck: neck supple, CV: RRR, No murmurs, Pulm: Clear b/l, no wheezing/rhonchi/rales, prolonged expiratory phase Abd: soft, nontender, +BS x4 Ext: no clubbing/cyanosis/edema Neuro: Alert, no focal deficits, moves all extremities, Skin: warm/dry OBJ DATA Labs CBC & Chem 7: 12/10/20 06:03 12/10/20 06:02 Labs: Abnormal Lab Results 12/09/20 12/09/20 12/09/20 12:50 12:50 10:08 WBC MPV Neut % (Auto) Lymph % (Auto) Lymph # (Auto) Absolute Neutrophils Chloride Glucose Alkaline Phosphatase C-Reactive Protein 9.50 H NT-Pro-B Natriuret Pep Globulin Albumin/Globulin Ratio Urine Appearance Cloudy A Ur Leukocyte Esterase 500 A Urine RBC 60 H Urine WBC 37 H Triple Phos Crystals Many A Urine Bacteria Many A Hyaline Casts 5 H Urine Mucus Few A Urine Opiates Screen Suspect positive A Ur Amphetamines Screen Suspect positive A 12/09/20 12/09/20 12/09/20 10:08 10:08 10:08 WBC 14.3 H MPV 11.2 H Neut % (Auto) 83.2 H Lymph % (Auto) 9.5 L Lymph # (Auto) 1.36 L Absolute Neutrophils 11.88 H Chloride 95 L Glucose 131 H Alkaline Phosphatase 119 H C-Reactive Protein NT-Pro-B Natriuret Pep 221.6 H Globulin 4.4 H Albumin/Globulin Ratio 0.7 L Urine Appearance Ur Leukocyte Esterase Urine RBC Urine WBC Triple Phos Crystals Urine Bacteria Hyaline Casts Urine Mucus Urine Opiates Screen Ur Amphetamines Screen Meds: Medications Acetaminophen (Acetaminophen 325 Mg Tablet) 650 mg PO Q6HP PRN; Protocol PRN Reason: Per Pain Protocol/Fever > 101 Hydrocodone Bitart/Acetaminophen (Hydrocodone/Apap 10/325mg Tablet) 1 - 2 tab PO Q4HP PRN; Protocol PRN Reason: Per Pain Protocol Last Admin: 12/10/20 05:37 Dose: 2 tab Documented by: Albuterol/Ipratropium (Ipratropium/Albuterol 3 Ml Ampul.Neb) 3 ml NEB Q4HP PRN PRN Reason: Shortness Of Breath Aspirin (Aspirin 81 Mg Tab.Chew) 81 mg CHEWED BID [facility] Last Admin: 12/09/20 23:23 Dose: 81 mg Documented by: Bisacodyl (Bisacodyl 10 Mg Supp.Rect) 10 mg MS Q2-3DAYS PRN PRN Reason: Constipation Ceftriaxone Sodium (Ceftriaxone 1 Gm Vial) 1 gm IV Q24H [facility]; Protocol Dexamethasone (Dexamethasone 4 Mg Tablet) 6 mg PO DAILY [facility] Docusate Sodium (Docusate Sodium 100 Mg Capsule) 100 mg PO BID [facility] Last Admin: 12/09/20 23:23 Dose: 100 mg Documented by: Hydromorphone HCl (Hydromorphone 1 Mg/Ml Syringe) 0.5 - 2 mg IV Q2HP PRN; Protocol PRN Reason: Per Pain Protocol Last Admin: 12/09/20 23:59 Dose: 2 mg Documented by: Lactated Ringer's (Lactated Ringers) 1,000 mls @ 100 mls/hr IV .Q10H [facility] Last Admin: 12/10/20 05:31 Dose: 100 mls/hr Documented by: Potassium Chloride 40 meq/ (Dextrose) 520 mls @ 130 mls/hr IV UD PRN PRN Reason: Potassium < 3 Magnesium Sulfate (Magnesium Sulfate) 2 gm in 50 mls @ 50 mls/hr IV UD PRN PRN Reason: Magnesium </= 1.6 REMDESIVIR 100 mg/ Sodium (Chloride) 250 mls @ 500 mls/hr IV Q24H [facility] Stop: 12/13/20 14:29 Ketorolac Tromethamine (Ketorolac 15 Mg/Ml Vial) 15 mg IV Q6HP PRN; Protocol PRN Reason: Per Pain Protocol Stop: 12/11/20 15:47 Labetalol HCl (Labetalol 5 Mg/Ml Ml) 0 mg IV Q2HP PRN PRN Reason: Hypertension Labetalol HCl (Labetalol 5 Mg/Ml Ml) 0 mg IV Q2HP PRN PRN Reason: Hypertension Magnesium Hydroxide (Magnesium Hydroxide 30 Ml Oral.Susp) 30 ml PO BIDP PRN PRN Reason: Constipation Metoclopramide HCl (Metoclopramide 10 Mg/2 Ml Vial) 10 mg IV Q6HP PRN PRN Reason: Nausea And Vomiting Morphine Sulfate (Morphine 4 Mg/Ml Vial) 0 mg IV Q3HP PRN PRN Reason: Pain Ondansetron HCl (Ondansetron 4 Mg/2 Ml Vial) 4 mg IV Q4HP PRN PRN Reason: Nausea And Vomiting Pantoprazole Sodium (Pantoprazole 40 Mg Tablet) 40 mg PO QAMAC [facility] Polyethylene Glycol (Polyethylene Glycol 3350 17 Gm Packet) 17 gm PO DAILYP PRN PRN Reason: Constipation Potassium Chloride (Potassium Chloride 20 Meq Tablet) 40 meq PO UD PRN PRN Reason: Potssium is 3-3.5 Potassium Chloride (Potassium Chloride 20 Meq Tablet) 40 meq PO UD PRN PRN Reason: Potassium < 3 Salmeterol Xinafoate (Salmeterol Xinafoate 1 Puff Inhaler) 1 puff INH BID [facility] Last Admin: 12/09/20 23:23 Dose: Not Given Documented by: Senna (Sennosides 1 Tablet) 2 tab PO HS [facility] Last Admin: 12/09/20 23:22 Dose: 2 tab Documented by: Sodium Biphosphate/Sodium Phosphate (Fleets Adult Enema) 1 dose MS Q3-4DAYS PRN PRN Reason: Constipation Sodium Chloride (0.9 % Sodium Chloride 10 Ml Syringe) 10 ml IV Q8 [facility] Last Admin: 12/10/20 06:21 Dose: Not Given Documented by: Temazepam (Temazepam 15 Mg Capsule) 15 mg PO HSP PRN PRN Reason: Insomnia Throat Lozenges (Benzocaine/Menthol 1 Lozenge) 1 lozenge PO PRN PRN PRN Reason: Sore Throat A/P Narrative A/P Narrative: A: *Acute on chronic hypoxic respiratory failure: 2/2 likely underlying chronic copd vs early covid pna -CTA no PE and infiltrates, but does show emphysema throughout and some scarring/atelectasis -on 1.5L O2 *Covid Infection: -chest imaging not showing infiltrates at this point *COPD(wears 1L@night): *SHAMA w/CPAP: *UTI ( ): *Left acute Hip Fx: s/p JAVIER (12/09) *PVD w/stents in legs per pt: On Pletal/Plavix *HTN: *Chronic low back pain: Follows with pain clinic *Tobacco abuse: *Anxiety/depression/bipolar: *GERD: *Substance abuse (with Meth): last used night prior to admission P: -rem/dex -O2 supp, wean as able, home IH's -IS/Acapella/prn nebs -nocturnal cpap -f/u cxr in AM -Ortho for hip -cont pscych meds -cont home BB, hold ACEI/hctz for low-normal BP -Smoking/drug use cessation counseling -PT/OT -CM for placement -ppx: SCD (post-op per ortho ASA bid) / home ppi DNR Time Spent With Patient Time: Total time spent is greater than 50% in coordination of care (as documented) at patient's floor/unit and/or counseling patient: QUALITY VTE Deep Vein Thrombosis/Pulmonary Embolism Present on Admission: No
[2020-12-10] MEDS ORDERED: tiZANidine 4 MG TABLET PO PRN (07:32)
[2020-12-10] MEDS: HYDROmorphone 1 MG/ML SYRINGE IV PRN (07:34)
--- NOTE | 2020-12-10 07:42 | Orthopedic Progress Note ---
SUBJECTIVE Subjective Patient information: Note initiated : 12/10/20 at 7:36 am Service Date, if different from initiated Date: [] Patient: Debbie Delgado 65 y/o F admitted on 12/09/20 for multiple falls recently. Chief Complaint: [Pt is stable this morning on post operative day without any significant concerns or complaints. Patients vital signs have remained stable. Patients dressing is dry and is grossly intact from a neurovascular and motor standpoint. Patients 10 point ROS is otherwise negative. ] Constitutional Vitals: Vital Signs Temp Pulse Resp BP Pulse Ox 98.1 F 87 16 110/80 92 12/10/20 07:12 12/10/20 07:12 12/10/20 07:12 12/10/20 07:12 12/10/20 07:12 Period Temp Pulse Resp BP Sys/Sosa Pulse Ox Last 24 Hr 97.2 F-98.3 F 76-95 8-25 91-170/55-157 82-100 Intake and Output 12/09/20 12/10/20 12/10/20 21:59 05:59 13:59 Intake Total 2150 1000 Output Total 325 650 Balance 1825 350 Weight 172 lb Intake & Output: Intake & Output 12/09/20 12/10/20 12/10/20 21:59 05:59 13:59 Intake Total 2150 1000 Output Total 325 650 Balance 1825 350 Weight 172 lb Intake: IV 850 1000 Sodium Chloride 0.9% 500 ml @ 500 Wide Open IV .Q0M ONE Rx#: [id number] Lactated Ringers 1,000 ml @ 100 1000 mls/hr IV .Q10H [facility] Rx#: [id number] Veklury 200 mg In Sodium 250 Chloride 0.9% 250 ml @ 500 mls/ hr IV ONCE ONE Rx#:[id number] IV - Manual Only 1300 Output: Urine Catheter Amount 200 650 Void Amount 25 Estimated Blood Loss 100 Other: Urine Appearance Clear Clear Uretheral (Hale) Clear Urine Color Bright Yellow Straw Uretheral (Hale) Straw Extremities Exam Extremities exam: Present normal inspection, tenderness, Foot pink and warm and neurovascular intact OBJ DATA Labs CBC & Chem 7: 12/09/20 10:08 12/09/20 10:08 Labs: Abnormal Lab Results 12/09/20 12/09/20 12/09/20 12:50 12:50 10:08 WBC MPV Neut % (Auto) Lymph % (Auto) Lymph # (Auto) Absolute Neutrophils Chloride Glucose Alkaline Phosphatase C-Reactive Protein 9.50 H NT-Pro-B Natriuret Pep Globulin Albumin/Globulin Ratio Urine Appearance Cloudy A Ur Leukocyte Esterase 500 A Urine RBC 60 H Urine WBC 37 H Triple Phos Crystals Many A Urine Bacteria Many A Hyaline Casts 5 H Urine Mucus Few A Urine Opiates Screen Suspect positive A Ur Amphetamines Screen Suspect positive A 12/09/20 12/09/20 12/09/20 10:08 10:08 10:08 WBC 14.3 H MPV 11.2 H Neut % (Auto) 83.2 H Lymph % (Auto) 9.5 L Lymph # (Auto) 1.36 L Absolute Neutrophils 11.88 H Chloride 95 L Glucose 131 H Alkaline Phosphatase 119 H C-Reactive Protein NT-Pro-B Natriuret Pep 221.6 H Globulin 4.4 H Albumin/Globulin Ratio 0.7 L Urine Appearance Ur Leukocyte Esterase Urine RBC Urine WBC Triple Phos Crystals Urine Bacteria Hyaline Casts Urine Mucus Urine Opiates Screen Ur Amphetamines Screen Meds: Medications Acetaminophen (Acetaminophen 325 Mg Tablet) 650 mg PO Q6HP PRN; Protocol PRN Reason: Per Pain Protocol/Fever > 101 Hydrocodone Bitart/Acetaminophen (Hydrocodone/Apap 10/325mg Tablet) 1 - 2 tab PO Q4HP PRN; Protocol PRN Reason: Per Pain Protocol Last Admin: 12/10/20 05:37 Dose: 2 tab Documented by: Albuterol/Ipratropium (Ipratropium/Albuterol 3 Ml Ampul.Neb) 3 ml NEB Q4HP PRN PRN Reason: Shortness Of Breath Aspirin (Aspirin 81 Mg Tab.Chew) 81 mg CHEWED BID [facility] Last Admin: 12/09/20 23:23 Dose: 81 mg Documented by: Bisacodyl (Bisacodyl 10 Mg Supp.Rect) 10 mg MN Q2-3DAYS PRN PRN Reason: Constipation Ceftriaxone Sodium (Ceftriaxone 1 Gm Vial) 1 gm IV Q24H [facility]; Protocol Cilostazol (Cilostazol 100 Mg Tablet) 100 mg PO ONCE [facility] Dexamethasone (Dexamethasone 4 Mg Tablet) 6 mg PO DAILY [facility] Docusate Sodium (Docusate Sodium 100 Mg Capsule) 100 mg PO BID [facility] Last Admin: 12/09/20 23:23 Dose: 100 mg Documented by: Hydromorphone HCl (Hydromorphone 1 Mg/Ml Syringe) 0.5 - 2 mg IV Q2HP PRN; Protocol PRN Reason: Per Pain Protocol Last Admin: 12/10/20 07:34 Dose: 1 mg Documented by: Lactated Ringer's (Lactated Ringers) 1,000 mls @ 100 mls/hr IV .Q10H [facility] Last Admin: 12/10/20 05:31 Dose: 100 mls/hr Documented by: Potassium Chloride 40 meq/ (Dextrose) 520 mls @ 130 mls/hr IV UD PRN PRN Reason: Potassium < 3 Magnesium Sulfate (Magnesium Sulfate) 2 gm in 50 mls @ 50 mls/hr IV UD PRN PRN Reason: Magnesium </= 1.6 REMDESIVIR 100 mg/ Sodium (Chloride) 250 mls @ 500 mls/hr IV Q24H [facility] Stop: 12/13/20 14:29 Ketorolac Tromethamine (Ketorolac 15 Mg/Ml Vial) 15 mg IV Q6HP PRN; Protocol PRN Reason: Per Pain Protocol Stop: 12/11/20 15:47 Labetalol HCl (Labetalol 5 Mg/Ml Ml) 0 mg IV Q2HP PRN PRN Reason: Hypertension Labetalol HCl (Labetalol 5 Mg/Ml Ml) 0 mg IV Q2HP PRN PRN Reason: Hypertension Magnesium Hydroxide (Magnesium Hydroxide 30 Ml Oral.Susp) 30 ml PO BIDP PRN PRN Reason: Constipation Metoclopramide HCl (Metoclopramide 10 Mg/2 Ml Vial) 10 mg IV Q6HP PRN PRN Reason: Nausea And Vomiting Metoprolol Tartrate (Metoprolol Tartrate 25 Mg Tablet) 25 mg PO BID [facility] Morphine Sulfate (Morphine 4 Mg/Ml Vial) 0 mg IV Q3HP PRN PRN Reason: Pain Non-Formulary Medication (Fluoxetine) 80 mg PO QAM [facility] Non-Formulary Medication (Trazodone) 300 mg PO HS [facility] Nortriptyline HCl (Nortriptyline 10 Mg Capsule) 50 mg PO QHS [facility] Ondansetron HCl (Ondansetron 4 Mg/2 Ml Vial) 4 mg IV Q4HP PRN PRN Reason: Nausea And Vomiting Pantoprazole Sodium (Pantoprazole 40 Mg Tablet) 40 mg PO QAMAC [facility] Polyethylene Glycol (Polyethylene Glycol 3350 17 Gm Packet) 17 gm PO DAILYP PRN PRN Reason: Constipation Potassium Chloride (Potassium Chloride 20 Meq Tablet) 40 meq PO UD PRN PRN Reason: Potssium is 3-3.5 Potassium Chloride (Potassium Chloride 20 Meq Tablet) 40 meq PO UD PRN PRN Reason: Potassium < 3 Fluticasone/Salmeterol (Fluticasone/Salmeterol 250/50 Inhaler #14) puff INH BID [facility] Senna (Sennosides 1 Tablet) 2 tab PO HS [facility] Last Admin: 12/09/20 23:22 Dose: 2 tab Documented by: Sodium Biphosphate/Sodium Phosphate (Fleets Adult Enema) 1 dose MN Q3-4DAYS PRN PRN Reason: Constipation Sodium Chloride (0.9 % Sodium Chloride 10 Ml Syringe) 10 ml IV Q8 [facility] Last Admin: 12/10/20 06:21 Dose: Not Given Documented by: Temazepam (Temazepam 15 Mg Capsule) 15 mg PO HSP PRN PRN Reason: Insomnia Throat Lozenges (Benzocaine/Menthol 1 Lozenge) 1 lozenge PO PRN PRN PRN Reason: Sore Throat Tizanidine HCl (Tizanidine 4 Mg Tablet) 12 mg PO HS PRN PRN Reason: Pain A/P Narrative A/P Narrative: The patient has been educated regarding dressing care, , restrictions, and follow up appointments. The patient has had all necessary DME prescribed. The patient has remained relatively stable during their hospital cou rse. However, Contracted Physicial Therapy refuses to work with this patient due to a second Covid test that was initially negative and was re-ran and was positive. Pt is asymptomatic for COVID symptoms. [facility] has no in house Physical Therapy to work with this patient to ensure she meets the discharge criteria. This is unacceptable inpatient care and puts our patient not only at high fall risk once she gets home but also certainly increases the hospitals liability for this patient. My concern was voiced to the patients nurse and Charge nurse this morning. Time Spent With Patient Time: Total time spent is greater than 50% in coordination of care (as documented) at patient's floor/unit and/or counseling patient: Total time spent with greater than 50% in coordination of care (as documented) at patient's floor/unit and/or counseling patient:: less than 15 minutes
--- NOTE | 2020-12-10 07:50 | Orthopedic Progress Note ---
SUBJECTIVE Subjective Patient information: Note initiated : 12/10/20 at 7:45 am Service Date, if different from initiated Date: [] Patient: Debbie Delgado 65 y/o F admitted on 12/09/20 for multiple falls recently. Chief Complaint: [Pt is stable this morning on post operative day without any significant concerns or complaints. Patients vital signs have remained stable. Patients dressing is dry and is grossly intact from a neurovascular and motor standpoint. Patients 10 point ROS is otherwise negative. ] Constitutional Vitals: Vital Signs Temp Pulse Resp BP Pulse Ox 98.1 F 87 16 110/80 92 12/10/20 07:12 12/10/20 07:12 12/10/20 07:12 12/10/20 07:12 12/10/20 07:12 Period Temp Pulse Resp BP Sys/Sosa Pulse Ox Last 24 Hr 97.2 F-98.3 F 76-95 8-25 91-170/55-157 82-100 Intake and Output 12/09/20 12/10/20 12/10/20 21:59 05:59 13:59 Intake Total 2150 1000 Output Total 325 650 Balance 1825 350 Weight 172 lb Intake & Output: Intake & Output 12/09/20 12/10/20 12/10/20 21:59 05:59 13:59 Intake Total 2150 1000 Output Total 325 650 Balance 1825 350 Weight 172 lb Intake: IV 850 1000 Sodium Chloride 0.9% 500 ml @ 500 Wide Open IV .Q0M ONE Rx#: [id number] Lactated Ringers 1,000 ml @ 100 1000 mls/hr IV .Q10H [facility] Rx#: [id number] Veklury 200 mg In Sodium 250 Chloride 0.9% 250 ml @ 500 mls/ hr IV ONCE ONE Rx#:[id number] IV - Manual Only 1300 Output: Urine Catheter Amount 200 650 Void Amount 25 Estimated Blood Loss 100 Other: Urine Appearance Clear Clear Uretheral (Hale) Clear Urine Color Bright Yellow Straw Uretheral (Hale) Straw Extremities Exam Extremities exam: Present normal capillary refill, normal inspection, Foot pink and warm and neurovascular intact OBJ DATA Labs CBC & Chem 7: 12/09/20 10:08 12/09/20 10:08 Labs: Abnormal Lab Results 12/09/20 12/09/20 12/09/20 12:50 12:50 10:08 WBC MPV Neut % (Auto) Lymph % (Auto) Lymph # (Auto) Absolute Neutrophils Chloride Glucose Alkaline Phosphatase C-Reactive Protein 9.50 H NT-Pro-B Natriuret Pep Globulin Albumin/Globulin Ratio Urine Appearance Cloudy A Ur Leukocyte Esterase 500 A Urine RBC 60 H Urine WBC 37 H Triple Phos Crystals Many A Urine Bacteria Many A Hyaline Casts 5 H Urine Mucus Few A Urine Opiates Screen Suspect positive A Ur Amphetamines Screen Suspect positive A 12/09/20 12/09/20 12/09/20 10:08 10:08 10:08 WBC 14.3 H MPV 11.2 H Neut % (Auto) 83.2 H Lymph % (Auto) 9.5 L Lymph # (Auto) 1.36 L Absolute Neutrophils 11.88 H Chloride 95 L Glucose 131 H Alkaline Phosphatase 119 H C-Reactive Protein NT-Pro-B Natriuret Pep 221.6 H Globulin 4.4 H Albumin/Globulin Ratio 0.7 L Urine Appearance Ur Leukocyte Esterase Urine RBC Urine WBC Triple Phos Crystals Urine Bacteria Hyaline Casts Urine Mucus Urine Opiates Screen Ur Amphetamines Screen Meds: Medications Acetaminophen (Acetaminophen 325 Mg Tablet) 650 mg PO Q6HP PRN; Protocol PRN Reason: Per Pain Protocol/Fever > 101 Hydrocodone Bitart/Acetaminophen (Hydrocodone/Apap 10/325mg Tablet) 1 - 2 tab PO Q4HP PRN; Protocol PRN Reason: Per Pain Protocol Last Admin: 12/10/20 05:37 Dose: 2 tab Documented by: Albuterol/Ipratropium (Ipratropium/Albuterol 3 Ml Ampul.Neb) 3 ml NEB Q4HP PRN PRN Reason: Shortness Of Breath Aspirin (Aspirin 81 Mg Tab.Chew) 81 mg CHEWED BID [facility] Last Admin: 12/09/20 23:23 Dose: 81 mg Documented by: Bisacodyl (Bisacodyl 10 Mg Supp.Rect) 10 mg ID Q2-3DAYS PRN PRN Reason: Constipation Ceftriaxone Sodium (Ceftriaxone 1 Gm Vial) 1 gm IV Q24H [facility]; Protocol Cilostazol (Cilostazol 100 Mg Tablet) 100 mg PO ONCE [facility] Dexamethasone (Dexamethasone 4 Mg Tablet) 6 mg PO DAILY [facility] Docusate Sodium (Docusate Sodium 100 Mg Capsule) 100 mg PO BID [facility] Last Admin: 12/09/20 23:23 Dose: 100 mg Documented by: Hydromorphone HCl (Hydromorphone 1 Mg/Ml Syringe) 0.5 - 2 mg IV Q2HP PRN; Protocol PRN Reason: Per Pain Protocol Last Admin: 12/10/20 07:34 Dose: 1 mg Documented by: Lactated Ringer's (Lactated Ringers) 1,000 mls @ 100 mls/hr IV .Q10H [facility] Last Admin: 12/10/20 05:31 Dose: 100 mls/hr Documented by: Potassium Chloride 40 meq/ (Dextrose) 520 mls @ 130 mls/hr IV UD PRN PRN Reason: Potassium < 3 Magnesium Sulfate (Magnesium Sulfate) 2 gm in 50 mls @ 50 mls/hr IV UD PRN PRN Reason: Magnesium </= 1.6 REMDESIVIR 100 mg/ Sodium (Chloride) 250 mls @ 500 mls/hr IV Q24H [facility] Stop: 12/13/20 14:29 Ketorolac Tromethamine (Ketorolac 15 Mg/Ml Vial) 15 mg IV Q6HP PRN; Protocol PRN Reason: Per Pain Protocol Stop: 12/11/20 15:47 Labetalol HCl (Labetalol 5 Mg/Ml Ml) 0 mg IV Q2HP PRN PRN Reason: Hypertension Labetalol HCl (Labetalol 5 Mg/Ml Ml) 0 mg IV Q2HP PRN PRN Reason: Hypertension Magnesium Hydroxide (Magnesium Hydroxide 30 Ml Oral.Susp) 30 ml PO BIDP PRN PRN Reason: Constipation Metoclopramide HCl (Metoclopramide 10 Mg/2 Ml Vial) 10 mg IV Q6HP PRN PRN Reason: Nausea And Vomiting Metoprolol Tartrate (Metoprolol Tartrate 25 Mg Tablet) 25 mg PO BID [facility] Morphine Sulfate (Morphine 4 Mg/Ml Vial) 0 mg IV Q3HP PRN PRN Reason: Pain Non-Formulary Medication (Fluoxetine) 80 mg PO QAM [facility] Non-Formulary Medication (Trazodone) 300 mg PO HS [facility] Nortriptyline HCl (Nortriptyline 10 Mg Capsule) 50 mg PO QHS [facility] Ondansetron HCl (Ondansetron 4 Mg/2 Ml Vial) 4 mg IV Q4HP PRN PRN Reason: Nausea And Vomiting Pantoprazole Sodium (Pantoprazole 40 Mg Tablet) 40 mg PO QAMAC [facility] Polyethylene Glycol (Polyethylene Glycol 3350 17 Gm Packet) 17 gm PO DAILYP PRN PRN Reason: Constipation Potassium Chloride (Potassium Chloride 20 Meq Tablet) 40 meq PO UD PRN PRN Reason: Potssium is 3-3.5 Potassium Chloride (Potassium Chloride 20 Meq Tablet) 40 meq PO UD PRN PRN Reason: Potassium < 3 Fluticasone/Salmeterol (Fluticasone/Salmeterol 250/50 Inhaler #14) puff INH BID [facility] Senna (Sennosides 1 Tablet) 2 tab PO HS [facility] Last Admin: 12/09/20 23:22 Dose: 2 tab Documented by: Sodium Biphosphate/Sodium Phosphate (Fleets Adult Enema) 1 dose ID Q3-4DAYS PRN PRN Reason: Constipation Sodium Chloride (0.9 % Sodium Chloride 10 Ml Syringe) 10 ml IV Q8 [facility] Last Admin: 12/10/20 06:21 Dose: Not Given Documented by: Temazepam (Temazepam 15 Mg Capsule) 15 mg PO HSP PRN PRN Reason: Insomnia Throat Lozenges (Benzocaine/Menthol 1 Lozenge) 1 lozenge PO PRN PRN PRN Reason: Sore Throat Tizanidine HCl (Tizanidine 4 Mg Tablet) 12 mg PO HS PRN PRN Reason: Pain A/P Narrative A/P Narrative: Contracted Physicial Therapy refuses to work with this patient due to a second Covid test that was initially negative and was re-ran and was positive. Pt is asymptomatic for COVID symptoms. [facility] has no in house Physical Therapy to work with this patient to ensure she meets the discharge criteria. This is unacceptable inpatient care and puts our patient not only at high fall risk once she gets home but also certainly increases the hospitals liability for this patient. My concern was voiced to the patients nurse and Charge nurse this morning. Pt otherwise is cleared by Orthopaedics for home discharge once she has demonstrated she meets the discharge criteria by Physical Therapy. (Previous note was thought to be one the wrong person and adended incorrectly. Original note was correct. Time Spent With Patient Time: Total time spent is greater than 50% in coordination of care (as documented) at patient's floor/unit and/or counseling patient: Total time spent with greater than 50% in coordination of care (as documented) at patient's floor/unit and/or counseling patient:: less than 15 minutes
[2020-12-10 08:20] LABS: Hemoglobin 11.5 g/dL (11.2-15.7); Mean Cell Volume 90.2 fL (80.0-100.0); Mean Corpuscular HGB Conc 31.1 g/dL (31.0-36.0); Mean Platelet Volume 11.6 fL (7.4-10.4); Platelet Count 214 K/mcL (140-440); Red Cell Distribution Width 11.9 % (11.5-14.5); WBC 14.7 K/mcL (4.5-11.0)
[2020-12-10 08:53] LABS: ALT/SGPT 13 U/L (<40); AST/SGOT 21 U/L (<32); Albumin 2.5 gm/dL (3.2-5.2); Albumin/Globulin Ratio 0.6 (1.0-2.3); Alkaline Phosphatase 100 U/L (39-117); Bilirubin,Direct < 0.2 mg/dL (0-0.3); Bilirubin,Total 0.2 mg/dL (0.1-1.0); Blood Urea Nitrogen 13 mg/dL (8-23); Calcium 8.9 mg/dL (8.6-10.4); Carbon Dioxide 24 mmol/L (22-30); Chloride 100 mmol/L (96-108); Glomerular Filtration Rate 89; Glucose 152 mg/dL (70-105); Lactate Dehydrogenase 216 U/L (135-225); Phosphorous 3.7 mg/dL (2.5-4.5); Triglycerides 55 mg/dL (<150); Uric Acid 5.1 mg/dL (2.5-8.0)
[2020-12-10] MEDS: ASPIRIN 81 MG TAB.CHEW CHEWED SCH ×2 (09:45→20:29)
[2020-12-10] MEDS: CILOSTAZOL 100 MG TABLET PO SCH ×2 (09:45→20:28)
[2020-12-10] MEDS: DOCUSATE SODIUM 100 MG CAPSULE PO SCH ×2 (09:45→20:28)
[2020-12-10] MEDS: METOPROLOL TARTRATE 25 MG TABLET PO SCH ×2 (09:46→20:29)
[2020-12-10] MEDS: FLUoxetine HCL 20 MG CAPSULE PO SCH (09:46)
[2020-12-10] MEDS: DEXAMETHASONE 4 MG TABLET PO SCH (09:46)
[2020-12-10] MEDS: PANTOPRAZOLE 40 MG TABLET PO SCH (09:47)
[2020-12-10 09:52] LABS: Band Neutrophils % 2 % (0-10); Lymphocytes % 7 % (15-49); Monocytes % (Manual) 4 % (1-12); Platelet Estimate NORMAL (Normal); RBC Morphology NORMAL (Normal); Segmented Neutrophils % 87 % (38-78)
[2020-12-10] MEDS: cefTRIAXone 1 GM VIAL IV SCH (09:55)
[2020-12-10] MEDS: FLUTICASONE/SALMETEROL 250/50 INHALER #14 INH SCH ×2 (10:05→20:31)
[2020-12-10] MEDS: NICOTINE 21 MG PATCH TOPICAL SCH (11:50)
--- NOTE | 2020-12-10 12:25 | Operative Note ---
DATE OF OPERATION: 12/09/2020 PREOPERATIVE DIAGNOSIS: Left femoral neck fracture, displaced. POSTOPERATIVE DIAGNOSIS: Left femoral neck fracture, displaced. PROCEDURE: Left hip cemented hemiarthroplasty. SURGEON: Michael Zamora M.D. CLIENT SUPPORT ANALYST: Maxime Gray PA-C. This providers expertise and technical skill were required throughout the case. The AUDREY assisted with preoperative coordination, intraoperative retraction, wound closure, and dressing and splint application, as well as postoperative documentation and care coordination. ANESTHESIA: General LMA anesthesia. DISPOSITION: To PACU. CONDITION: Stable. COMPLICATIONS: None. IMPLANTS USED: Gus size 5 cemented stem with a canal restrictor distal centralizer of 10 mm neutral neck length and 48 mm bipolar head. DESCRIPTION OF PROCEDURE: The patient was brought to the operating room, put to sleep with general LMA anesthesia. Once asleep, the patient had the left hip sterilely prepped and draped in the usual sterile fashion. A timeout was performed confirming the operative site by initials, consent form, and x-rays. A superior approach was created through a linear incision, exposed the joint, made the neck cut through the fracture site. We then removed any ligament from the acetabulum and then broached up to the size 5 stem, trialed the size 5 with a neutral neck length; equal and symmetric leg length. We irrigated thoroughly and cemented into place a size 5 stem with a distal centralizer of 10 mm and neutral neck length and a 48 mm bipolar head was reduced. We repaired the capsule, repaired the fascial layer with Stratafix and adhesive closure for the skin layer. Blood loss about 100 mL because the patient was on Plavix. There were no complications, no blood products given. DISPOSITION: To PACU. RBH:edil Job ID: [id number] Doc ID: [id number] Michael Zamora MD
[2020-12-10] MEDS ORDERED: REMDESIVIR 100 MG in 0.9 % SODIUM CHLORIDE 250 ML IV SCH (14:00)
[2020-12-10] MEDS: NORTRIPTYLINE 25 MG CAPSULE PO SCH (20:28)
[2020-12-10] MEDS: traZODone HCL 150 MG TABLET PO SCH (20:28)
[2020-12-10] MEDS: SENNOSIDES 1 TABLET PO SCH (20:29)
[2020-12-10] MEDS: TEMAZEPAM 15 MG CAPSULE PO PRN (21:51)
[2020-12-11] MEDS: HYDROcodone/APAP 10/325MG TABLET PO PRN ×2 (05:32→21:21)
[2020-12-11] MEDS: 0.9 % SODIUM CHLORIDE 10 ML SYRINGE IV SCH ×3 (05:32→21:16)
--- NOTE | 2020-12-11 06:59 | XRay Report ---
INDICATION: covid infection, ?infiltrates TECHNIQUE: AP portable upright chest x-ray COMPARISON: Previous chest x-rays dated 12/09/2020, 08/18/2019 FINDINGS: Lungs:Interstitial markings remain prominent bilaterally. This is essentially unchanged. There is focal density at the right lung base which may represent atelectasis or a small focal inflammatory infiltrate. No other focal abnormalities. Heart, vascular:No significant cardiomegaly. Pulmonary vascularity is normal. No pulmonary edema or pulmonary congestion Mediastinum, erika:No mediastinal widening. No hilar mass Pleura:No pleural fluid. No pleural-based mass or calcification Skeletal:Negative. IMPRESSION: 1. Prominent interstitial markings bilaterally, unchanged 2. Mild right basilar parenchymal density consistent with atelectasis or inflammatory infiltrate Interpreted and Authenticated by: Farrukh Adler 12/11/20
[2020-12-11 07:08] LABS: Hemoglobin 11.1 g/dL (11.2-15.7); Mean Cell Volume 87.9 fL (80.0-100.0); Mean Corpuscular HGB Conc 32.6 g/dL (31.0-36.0); Mean Platelet Volume 11.7 fL (7.4-10.4); Platelet Count 227 K/mcL (140-440); RBC 3.87 M/mcL (3.59-5.38); WBC 17.2 K/mcL (4.5-11.0)
--- NOTE | 2020-12-11 07:38 | Internal Med Progress Note ---
SUBJECTIVE Subjective Patient information: Note initiated : 12/11/20 at 7:31 am Service Date, if different from initiated Date: [] Patient: Debbie Delgado 65 y/o F admitted on 12/09/20 for multiple falls recently. Chief Complaint: [] Interval history: Chief Complaint: [] History of present illness: Ms. Delgado is a 65 year old F Patient is extremely difficult to understand given her edentulous and does not have dentures. Sounds like she is fallen several times recently and has increasing left hip pain. Revealed a left hip fracture. She has a history of COPD and wears 1 L of oxygen at night but not during the day and is on CPAP at night for SHAMA. In the ED when she arrived on room air she was 82% when I went in there and try to drop her she did desat as well. She is on 4 to 6 L currently. She denies shortness of breath or cough. She says she was sick last month and they thought she had Covid but she went to the [facility] clinic and got tested and feels better now. Dr. Vivas for orthopedic surgery was contacted. 12/10 Patient had ORIF yesterday. Patient feeling well today. No new complaints. No cough shortness of breath. On 1.5 L nasal cannula. ?covid positive test on 11/27? Patient thought it was negative. 12/11 Check on 11/27 Covid test. Patient feeling well. No cough shortness of breath. Weaned off oxygen during the day. Review of Systems: denies headache/fever/chills/nausea/vomiting/chest or abdominal pain/diarrhea. Otherwise see above. Constitutional Vitals: Vital Signs Temp Pulse Resp BP Pulse Ox 96.4 F L 67 14 122/74 93 12/11/20 04:33 12/11/20 04:33 12/11/20 04:33 12/11/20 04:33 12/11/20 04:33 Period Temp Pulse Resp BP Sys/Sosa Pulse Ox Last 24 Hr 96.4 F-98.4 F 67-106 14-20 114-170/67-75 90-94 Intake and Output 12/10/20 12/11/20 12/11/20 21:59 05:59 13:59 Intake Total 1550 400 Output Total 725 Balance 1550 -325 Weight 80.739 kg Intake & Output: Intake & Output 12/10/20 12/11/20 12/11/20 21:59 05:59 13:59 Intake Total 1550 400 Output Total 725 Balance 1550 -325 Weight 80.739 kg Intake: IV 1250 Lactated Ringers 1,000 ml @ 100 1000 mls/hr IV .Q10H [facility] Rx#: [id number] Veklury 100 mg In Sodium 250 Chloride 0.9% 250 ml @ 500 mls/ hr IV Q24H [facility] Rx#:[id number] Oral 300 400 Output: Void Amount 725 Other: Urine Appearance Clear Urine Color Dark Yellow Exam: General: Alert, Awake, No acute Distress Eyes/N/T: EOMI,edentulous, Head/Neck: neck supple, CV: RRR, No murmurs, Pulm: Clear b/l, no wheezing/rhonchi/rales, prolonged expiratory phase Abd: soft, nontender, +BS x4 Ext: no clubbing/cyanosis/edema Neuro: Alert, no focal deficits, moves all extremities, Skin: warm/dry OBJ DATA Labs CBC & Chem 7: 12/11/20 06:14 12/11/20 06:14 Labs: Abnormal Lab Results 12/11/20 12/10/20 12/10/20 06:14 06:03 06:02 WBC 17.2 H 14.7 H Hgb 11.1 L Hct 34.0 L MPV 11.7 H 11.6 H Neut % (Auto) Lymph % (Auto) Lymph # (Auto) Seg Neutrophils % 87 H Lymphocytes % 7 L Absolute Neutrophils Chloride Glucose 152 H Alkaline Phosphatase C-Reactive Protein NT-Pro-B Natriuret Pep Albumin 2.5 L Globulin 4.0 H Albumin/Globulin Ratio 0.6 L Urine Appearance Ur Leukocyte Esterase Urine RBC Urine WBC Triple Phos Crystals Urine Bacteria Hyaline Casts Urine Mucus Urine Opiates Screen Ur Amphetamines Screen 12/09/20 12/09/20 12/09/20 12:50 12:50 10:08 WBC Hgb Hct MPV Neut % (Auto) Lymph % (Auto) Lymph # (Auto) Seg Neutrophils % Lymphocytes % Absolute Neutrophils Chloride Glucose Alkaline Phosphatase C-Reactive Protein 9.50 H NT-Pro-B Natriuret Pep Albumin Globulin Albumin/Globulin Ratio Urine Appearance Cloudy A Ur Leukocyte Esterase 500 A Urine RBC 60 H Urine WBC 37 H Triple Phos Crystals Many A Urine Bacteria Many A Hyaline Casts 5 H Urine Mucus Few A Urine Opiates Screen Suspect positive A Ur Amphetamines Screen Suspect positive A 12/09/20 12/09/20 12/09/20 10:08 10:08 10:08 WBC 14.3 H Hgb Hct MPV 11.2 H Neut % (Auto) 83.2 H Lymph % (Auto) 9.5 L Lymph # (Auto) 1.36 L Seg Neutrophils % Lymphocytes % Absolute Neutrophils 11.88 H Chloride 95 L Glucose 131 H Alkaline Phosphatase 119 H C-Reactive Protein NT-Pro-B Natriuret Pep 221.6 H Albumin Globulin 4.4 H Albumin/Globulin Ratio 0.7 L Urine Appearance Ur Leukocyte Esterase Urine RBC Urine WBC Triple Phos Crystals Urine Bacteria Hyaline Casts Urine Mucus Urine Opiates Screen Ur Amphetamines Screen Meds: Medications Acetaminophen (Acetaminophen 325 Mg Tablet) 650 mg PO Q6HP PRN; Protocol PRN Reason: Per Pain Protocol/Fever > 101 Hydrocodone Bitart/Acetaminophen (Hydrocodone/Apap 10/325mg Tablet) 1 - 2 tab PO Q4HP PRN; Protocol PRN Reason: Per Pain Protocol Last Admin: 12/11/20 05:32 Dose: 2 tab Documented by: Albuterol/Ipratropium (Ipratropium/Albuterol 3 Ml Ampul.Neb) 3 ml NEB Q4HP PRN PRN Reason: Shortness Of Breath Aspirin (Aspirin 81 Mg Tab.Chew) 81 mg CHEWED BID [facility] Last Admin: 12/10/20 20:29 Dose: 81 mg Documented by: Bisacodyl (Bisacodyl 10 Mg Supp.Rect) 10 mg [place] Q2-3DAYS PRN PRN Reason: Constipation Ceftriaxone Sodium (Ceftriaxone 1 Gm Vial) 1 gm IV Q24H [facility]; Protocol Last Admin: 12/10/20 09:55 Dose: 1 gm Documented by: Cilostazol (Cilostazol 100 Mg Tablet) 100 mg PO BID [facility] Last Admin: 12/10/20 20:28 Dose: 100 mg Documented by: Dexamethasone (Dexamethasone 4 Mg Tablet) 6 mg PO DAILY [facility] Last Admin: 12/10/20 09:46 Dose: 6 mg Documented by: Docusate Sodium (Docusate Sodium 100 Mg Capsule) 100 mg PO BID [facility] Last Admin: 12/10/20 20:28 Dose: 100 mg Documented by: Fluoxetine HCl (Fluoxetine Hcl 20 Mg Capsule) 80 mg PO DAILY [facility] Last Admin: 12/10/20 09:46 Dose: 80 mg Documented by: Hydromorphone HCl (Hydromorphone 1 Mg/Ml Syringe) 0.5 - 2 mg IV Q2HP PRN; Protocol PRN Reason: Per Pain Protocol Last Admin: 12/10/20 07:34 Dose: 1 mg Documented by: Potassium Chloride 40 meq/ (Dextrose) 520 mls @ 130 mls/hr IV UD PRN PRN Reason: Potassium < 3 Magnesium Sulfate (Magnesium Sulfate) 2 gm in 50 mls @ 50 mls/hr IV UD PRN PRN Reason: Magnesium </= 1.6 REMDESIVIR 100 mg/ Sodium (Chloride) 250 mls @ 500 mls/hr IV Q24H [facility] Stop: 12/13/20 14:29 Last Infusion: 12/10/20 19:13 Dose: Infused Documented by: Ketorolac Tromethamine (Ketorolac 15 Mg/Ml Vial) 15 mg IV Q6HP PRN; Protocol PRN Reason: Per Pain Protocol Stop: 12/11/20 15:47 Labetalol HCl (Labetalol 5 Mg/Ml Ml) 0 mg IV Q2HP PRN PRN Reason: Hypertension Magnesium Hydroxide (Magnesium Hydroxide 30 Ml Oral.Susp) 30 ml PO BIDP PRN PRN Reason: Constipation Metoclopramide HCl (Metoclopramide 10 Mg/2 Ml Vial) 10 mg IV Q6HP PRN PRN Reason: Nausea And Vomiting Metoprolol Tartrate (Metoprolol Tartrate 25 Mg Tablet) 25 mg PO BID [facility] Last Admin: 12/10/20 20:29 Dose: 25 mg Documented by: Morphine Sulfate (Morphine 4 Mg/Ml Vial) 0 mg IV Q3HP PRN PRN Reason: Pain Nicotine (Nicotine 21 Mg Patch) 21 mg TOPICAL DAILY@1000 [facility] Last Admin: 12/10/20 11:50 Dose: 21 mg Documented by: Nortriptyline HCl (Nortriptyline 25 Mg Capsule) 50 mg PO HS [facility] Last Admin: 12/10/20 20:28 Dose: 50 mg Documented by: Ondansetron HCl (Ondansetron 4 Mg/2 Ml Vial) 4 mg IV Q4HP PRN PRN Reason: Nausea And Vomiting Pantoprazole Sodium (Pantoprazole 40 Mg Tablet) 40 mg PO QAMAC [facility] Last Admin: 12/10/20 09:47 Dose: Not Given Documented by: Polyethylene Glycol (Polyethylene Glycol 3350 17 Gm Packet) 17 gm PO DAILYP PRN PRN Reason: Constipation Potassium Chloride (Potassium Chloride 20 Meq Tablet) 40 meq PO UD PRN PRN Reason: Potssium is 3-3.5 Potassium Chloride (Potassium Chloride 20 Meq Tablet) 40 meq PO UD PRN PRN Reason: Potassium < 3 Fluticasone/Salmeterol (Fluticasone/Salmeterol 250/50 Inhaler #14) 1 puff INH BID [facility] Last Admin: 12/10/20 20:31 Dose: Not Given Documented by: Senna (Sennosides 1 Tablet) 2 tab PO [facility] Last Admin: 12/10/20 20:29 Dose: 2 tab Documented by: Sodium Biphosphate/Sodium Phosphate (Fleets Adult Enema) 1 dose [place] Q3-4DAYS PRN PRN Reason: Constipation Sodium Chloride (0.9 % Sodium Chloride 10 Ml Syringe) 10 ml IV Q8 [facility] Last Admin: 12/11/20 05:32 Dose: 10 ml Documented by: Temazepam (Temazepam 15 Mg Capsule) 15 mg PO HSP PRN PRN Reason: Insomnia Last Admin: 12/10/20 21:51 Dose: 15 mg Documented by: Throat Lozenges (Benzocaine/Menthol 1 Lozenge) 1 lozenge PO PRN PRN PRN Reason: Sore Throat Tizanidine HCl (Tizanidine 4 Mg Tablet) 12 mg PO HS PRN PRN Reason: Pain Last Admin: 12/10/20 21:51 Dose: 12 mg Documented by: Trazodone HCl (Trazodone Hcl 150 Mg Tablet) 300 mg PO [facility] Last Admin: 12/10/20 20:28 Dose: 300 mg Documented by: A/P Narrative A/P Narrative: A: *Acute on chronic hypoxic respiratory failure: 2/2 likely underlying chronic copd vs residual covid -CTA no PE and infiltrates mentiond, but does show emphysema throughout and some scarring/atelectasis -on 1-3L O2 *Covid Infection: -chest xray with b/l interstitial markings. suspect residual lung markings from covid infection (tested ?Positive 11/27) *COPD(wears 1L@night): *SHAMA w/CPAP: *UTI (E. coli): *Left acute Hip Fx: s/p JAVIER (12/09) *PVD w/stents in legs per pt: On Pletal/Plavix *HTN: *Chronic low back pain: Follows with pain clinic *Tobacco abuse: *Anxiety/depression/bipolar: *GERD: *Substance abuse (with Meth): last used night prior to admission P: -rem/dex -O2 supp, wean as able, home IH's -IS/Acapella/prn nebs -nocturnal cpap -rocephin -Ortho for hip -cont pscych meds -cont home BB, hold ACEI/hctz for low-normal BP, restart when able -Smoking/Substance use cessation counseling -PT/OT -CM for placement -ppx: SCD (post-op per ortho ASA bid) / home ppi DNR Time Spent With Patient Time: Total time spent is greater than 50% in coordination of care (as documented) at patient's floor/unit and/or counseling patient: QUALITY VTE Deep Vein Thrombosis/Pulmonary Embolism Present on Admission: No
[2020-12-11] MEDS: FLUoxetine HCL 20 MG CAPSULE PO SCH (07:52)
[2020-12-11] MEDS: DEXAMETHASONE 4 MG TABLET PO SCH (07:52)
[2020-12-11] MEDS: CILOSTAZOL 100 MG TABLET PO SCH ×2 (07:52→21:16)
[2020-12-11] MEDS: NICOTINE 21 MG PATCH TOPICAL SCH ×2 (07:52→08:13)
[2020-12-11] MEDS: ASPIRIN 81 MG TAB.CHEW CHEWED SCH ×2 (07:53→21:13)
[2020-12-11] MEDS: METOPROLOL TARTRATE 25 MG TABLET PO SCH ×2 (07:53→21:13)
[2020-12-11] MEDS: DOCUSATE SODIUM 100 MG CAPSULE PO SCH ×2 (07:53→21:14)
[2020-12-11] MEDS: FLUTICASONE/SALMETEROL 250/50 INHALER #14 INH SCH ×2 (07:53→21:15)
[2020-12-11] MEDS: PANTOPRAZOLE 40 MG TABLET PO SCH (07:53)
[2020-12-11 08:10] LABS: Blood Urea Nitrogen 18 mg/dL (8-23); Carbon Dioxide 28 mmol/L (22-30); Chloride 99 mmol/L (96-108); Glomerular Filtration Rate 89; Glucose 124 mg/dL (70-105)
[2020-12-11] MEDS: cefTRIAXone 1 GM VIAL IV SCH (09:33)
[2020-12-11] MEDS ORDERED: FLU VACC QS2021-22(6MOS UP)/PF 60 MCG/0.5 ML SYRINGE IM ONE (10:00)
[2020-12-11 10:35] LABS: Lymphocytes % 12 % (15-49); Monocytes % (Manual) 3 % (1-12); Platelet Estimate NORMAL (Normal); RBC Morphology NORMAL (Normal); Reactive Lymphocytes 1 % (0-2); Segmented Neutrophils % 84 % (38-78)
[2020-12-11] MEDS ORDERED: KETOROLAC 15 MG/ML VIAL IV PRN (16:38)
[2020-12-11] MEDS: SENNOSIDES 1 TABLET PO SCH (21:13)
[2020-12-11] MEDS: traZODone HCL 150 MG TABLET PO SCH (21:13)
[2020-12-11] MEDS: NORTRIPTYLINE 25 MG CAPSULE PO SCH (21:13)
[2020-12-11] MEDS: TEMAZEPAM 15 MG CAPSULE PO PRN (23:39)
--- NOTE | 2020-12-12 09:36 | Orthopedic Progress Note ---
SUBJECTIVE Subjective Patient information: Note initiated : 12/12/20 at 9:34 am Service Date, if different from initiated Date: [] Patient: Debbie Delgado 65 y/o F admitted on 12/09/20 for multiple falls recently. Chief Complaint: [Pt is stable this morning on post operative day without any significant concerns or complaints. Patients vital signs have remained stable. Patients dressing is dry and is grossly intact from a neurovascular and motor standpoint. Patients 10 point ROS is otherwise negative. ] Constitutional Vitals: Vital Signs Temp Pulse Resp BP Pulse Ox 97.2 F 74 20 133/71 91 12/12/20 07:15 12/12/20 08:00 12/12/20 07:15 12/12/20 07:15 12/12/20 07:15 Period Temp Pulse Resp BP Sys/Sosa Pulse Ox Last 24 Hr 97.2 F-98.8 F 74-87 12-20 89-159/51-81 91-96 Intake and Output 12/11/20 12/12/20 12/12/20 21:59 05:59 13:59 Intake Total 1180 0 240 Output Total 600 526 Balance 580 -526 240 Weight 179 lb 1.6 oz Intake & Output: Intake & Output 12/11/20 12/12/20 12/12/20 21:59 05:59 13:59 Intake Total 1180 0 240 Output Total 600 526 Balance 580 -526 240 Weight 179 lb 1.6 oz Intake: Oral 1180 0 240 Output: Void Amount 600 525 # of times incontinent of urine 1 Other: Meal Breakfast Percent of Meal Consumed 100% Urine Appearance Clear Urine Color Light Demi Bright Yellow Urine Odor Strong Extremities Exam Extremities exam: Present normal capillary refill, normal inspection, Foot pink and warm and neurovascular intact OBJ DATA Labs CBC & Chem 7: 12/11/20 06:14 12/11/20 06:14 Labs: Abnormal Lab Results 12/11/20 12/11/20 12/10/20 06:14 06:14 06:03 WBC 17.2 H 14.7 H Hgb 11.1 L Hct 34.0 L MPV 11.7 H 11.6 H Neut % (Auto) Lymph % (Auto) Lymph # (Auto) Seg Neutrophils % 84 H 87 H Lymphocytes % 12 L 7 L Absolute Neutrophils Chloride Glucose 124 H Alkaline Phosphatase C-Reactive Protein 8.70 H NT-Pro-B Natriuret Pep Albumin Globulin Albumin/Globulin Ratio Urine Appearance Ur Leukocyte Esterase Urine RBC Urine WBC Triple Phos Crystals Urine Bacteria Hyaline Casts Urine Mucus Urine Opiates Screen Ur Amphetamines Screen 12/10/20 12/09/20 12/09/20 06:02 12:50 12:50 WBC Hgb Hct MPV Neut % (Auto) Lymph % (Auto) Lymph # (Auto) Seg Neutrophils % Lymphocytes % Absolute Neutrophils Chloride Glucose 152 H Alkaline Phosphatase C-Reactive Protein NT-Pro-B Natriuret Pep Albumin 2.5 L Globulin 4.0 H Albumin/Globulin Ratio 0.6 L Urine Appearance Cloudy A Ur Leukocyte Esterase 500 A Urine RBC 60 H Urine WBC 37 H Triple Phos Crystals Many A Urine Bacteria Many A Hyaline Casts 5 H Urine Mucus Few A Urine Opiates Screen Suspect positive A Ur Amphetamines Screen Suspect positive A 12/09/20 12/09/20 12/09/20 10:08 10:08 10:08 WBC Hgb Hct MPV Neut % (Auto) Lymph % (Auto) Lymph # (Auto) Seg Neutrophils % Lymphocytes % Absolute Neutrophils Chloride 95 L Glucose 131 H Alkaline Phosphatase 119 H C-Reactive Protein 9.50 H NT-Pro-B Natriuret Pep 221.6 H Albumin Globulin 4.4 H Albumin/Globulin Ratio 0.7 L Urine Appearance Ur Leukocyte Esterase Urine RBC Urine WBC Triple Phos Crystals Urine Bacteria Hyaline Casts Urine Mucus Urine Opiates Screen Ur Amphetamines Screen 12/09/20 10:08 WBC 14.3 H Hgb Hct MPV 11.2 H Neut % (Auto) 83.2 H Lymph % (Auto) 9.5 L Lymph # (Auto) 1.36 L Seg Neutrophils % Lymphocytes % Absolute Neutrophils 11.88 H Chloride Glucose Alkaline Phosphatase C-Reactive Protein NT-Pro-B Natriuret Pep Albumin Globulin Albumin/Globulin Ratio Urine Appearance Ur Leukocyte Esterase Urine RBC Urine WBC Triple Phos Crystals Urine Bacteria Hyaline Casts Urine Mucus Urine Opiates Screen Ur Amphetamines Screen Meds: Medications Acetaminophen (Acetaminophen 325 Mg Tablet) 650 mg PO Q6HP PRN; Protocol PRN Reason: Per Pain Protocol/Fever > 101 Hydrocodone Bitart/Acetaminophen (Hydrocodone/Apap 10/325mg Tablet) 1 - 2 tab PO Q4HP PRN; Protocol PRN Reason: Per Pain Protocol Last Admin: 12/11/20 21:21 Dose: 1 tab Documented by: Albuterol/Ipratropium (Ipratropium/Albuterol 3 Ml Ampul.Neb) 3 ml NEB Q4HP PRN PRN Reason: Shortness Of Breath Aspirin (Aspirin 81 Mg Tab.Chew) 81 mg CHEWED BID [facility] Last Admin: 12/11/20 21:13 Dose: 81 mg Documented by: Bisacodyl (Bisacodyl 10 Mg Supp.Rect) 10 mg [place] Q2-3DAYS PRN PRN Reason: Constipation Ceftriaxone Sodium (Ceftriaxone 1 Gm Vial) 1 gm IV Q24H [facility]; Protocol Last Admin: 12/11/20 09:33 Dose: 1 gm Documented by: Cilostazol (Cilostazol 100 Mg Tablet) 100 mg PO BID [facility] Last Admin: 12/11/20 21:16 Dose: 100 mg Documented by: Docusate Sodium (Docusate Sodium 100 Mg Capsule) 100 mg PO BID [facility] Last Admin: 12/11/20 21:14 Dose: 100 mg Documented by: Fluoxetine HCl (Fluoxetine Hcl 20 Mg Capsule) 80 mg PO DAILY [facility] Last Admin: 12/11/20 07:52 Dose: 80 mg Documented by: Hydromorphone HCl (Hydromorphone 1 Mg/Ml Syringe) 0.5 - 2 mg IV Q2HP PRN; Protocol PRN Reason: Per Pain Protocol Last Admin: 12/10/20 07:34 Dose: 1 mg Documented by: Potassium Chloride 40 meq/ (Dextrose) 520 mls @ 130 mls/hr IV UD PRN PRN Reason: Potassium < 3 Magnesium Sulfate (Magnesium Sulfate) 2 gm in 50 mls @ 50 mls/hr IV UD PRN PRN Reason: Magnesium </= 1.6 Ketorolac Tromethamine (Ketorolac 15 Mg/Ml Vial) 15 mg IV Q4-6HP PRN PRN Reason: Per Pain Protocol Stop: 12/13/20 16:39 Last Admin: 12/11/20 18:00 Dose: 15 mg Documented by: Labetalol HCl (Labetalol 5 Mg/Ml Ml) 0 mg IV Q2HP PRN PRN Reason: Hypertension Magnesium Hydroxide (Magnesium Hydroxide 30 Ml Oral.Susp) 30 ml PO BIDP PRN PRN Reason: Constipation Metoclopramide HCl (Metoclopramide 10 Mg/2 Ml Vial) 10 mg IV Q6HP PRN PRN Reason: Nausea And Vomiting Metoprolol Tartrate (Metoprolol Tartrate 25 Mg Tablet) 25 mg PO BID [facility] Last Admin: 12/11/20 21:13 Dose: 25 mg Documented by: Morphine Sulfate (Morphine 4 Mg/Ml Vial) 0 mg IV Q3HP PRN PRN Reason: Pain Nicotine (Nicotine 21 Mg Patch) 21 mg TOPICAL DAILY@1000 [facility] Last Admin: 12/11/20 08:13 Dose: Not Given Documented by: Nortriptyline HCl (Nortriptyline 25 Mg Capsule) [address] [facility] Last Admin: 12/11/20 21:13 Dose: 50 mg Documented by: Ondansetron HCl (Ondansetron 4 Mg/2 Ml Vial) 4 mg IV Q4HP PRN PRN Reason: Nausea And Vomiting Pantoprazole Sodium (Pantoprazole 40 Mg Tablet) 40 mg PO QAMAC [facility] Last Admin: 12/11/20 07:53 Dose: 40 mg Documented by: Polyethylene Glycol (Polyethylene Glycol 3350 17 Gm Packet) 17 gm PO DAILYP PRN PRN Reason: Constipation Potassium Chloride (Potassium Chloride 20 Meq Tablet) 40 meq PO UD PRN PRN Reason: Potssium is 3-3.5 Potassium Chloride (Potassium Chloride 20 Meq Tablet) 40 meq PO UD PRN PRN Reason: Potassium < 3 Fluticasone/Salmeterol (Fluticasone/Salmeterol 250/50 Inhaler #14) 1 puff INH BID [facility] Last Admin: 12/11/20 21:15 Dose: Not Given Documented by: Senna (Sennosides 1 Tablet) [address] [facility] Last Admin: 12/11/20 21:13 Dose: 2 tab Documented by: Sodium Biphosphate/Sodium Phosphate (Fleets Adult Enema) 1 dose [place] Q3-4DAYS PRN PRN Reason: Constipation Sodium Chloride (0.9 % Sodium Chloride 10 Ml Syringe) 10 ml IV Q8 [facility] Last Admin: 12/11/20 21:16 Dose: 10 ml Documented by: Temazepam (Temazepam 15 Mg Capsule) 15 mg PO HSP PRN PRN Reason: Insomnia Last Admin: 12/11/20 23:39 Dose: 15 mg Documented by: Throat Lozenges (Benzocaine/Menthol 1 Lozenge) 1 lozenge PO PRN PRN PRN Reason: Sore Throat Tizanidine HCl (Tizanidine 4 Mg Tablet) 12 mg PO HS PRN PRN Reason: Pain Last Admin: 12/10/20 21:51 Dose: 12 mg Documented by: Trazodone HCl (Trazodone Hcl 150 Mg Tablet) 300 mg PO HS [facility] Last Admin: 12/11/20 21:13 Dose: 300 mg Documented by: A/P Narrative A/P Narrative: The patient has been educated regarding dressing care, , restrictions, and follow up appointments. The patient has had all necessary DME prescribed. The patient has remained relatively stable during their hospital course. Currently awaiting SNF transfer by Hospitalist. Cleared by Orthopedics for SNF transfer when cleared by hospitalist. Time Spent With Patient Time: Total time spent is greater than 50% in coordination of care (as documented) at patient's floor/unit and/or counseling patient: Total time spent with greater than 50% in coordination of care (as documented) at patient's floor/unit and/or counseling patient:: less than 15 minutes
[2020-12-12 09:44] LABS: Basophils # (Auto) 0.01 K/mcL (0.00-0.30); Basophils % (Auto) 0.1 % (0.0-2.0); Eosinophils # (Auto) 0 K/mcL (0.00-0.70); Eosinophils % (Auto) 0 % (0.0-7.0); Hematocrit 32.6 % (34.1-44.9); Hemoglobin 10.5 g/dL (11.2-15.7); Lymphocytes # (Auto) 1.77 K/mcL (1.50-4.80); Lymphocytes % (Auto) 14.1 % (15.5-49.0); Mean Cell Volume 89.8 fL (80.0-100.0); Mean Corpuscular HGB Conc 32.2 g/dL (31.0-36.0); Mean Platelet Volume 11.5 fL (7.4-10.4); Monocytes # (Auto) 0.76 K/mcL (0.10-0.90); Monocytes % (Auto) 6.1 % (1.0-12.0); Neutrophils % (Auto) 79.7 % (38.0-78.0); Platelet Count 209 K/mcL (140-440); RBC 3.63 M/mcL (3.59-5.38); WBC 12.6 K/mcL (4.5-11.0)
[2020-12-12] MEDS: CILOSTAZOL 100 MG TABLET PO SCH ×2 (10:12→20:56)
[2020-12-12] MEDS: NICOTINE 21 MG PATCH TOPICAL SCH (10:12)
[2020-12-12] MEDS: METOPROLOL TARTRATE 25 MG TABLET PO SCH ×2 (10:13→20:57)
[2020-12-12] MEDS: FLUTICASONE/SALMETEROL 250/50 INHALER #14 INH SCH ×2 (10:13→20:57)
[2020-12-12] MEDS: FLUoxetine HCL 20 MG CAPSULE PO SCH (10:13)
[2020-12-12] MEDS: DOCUSATE SODIUM 100 MG CAPSULE PO SCH ×2 (10:13→20:57)
[2020-12-12] MEDS: ASPIRIN 81 MG TAB.CHEW CHEWED SCH ×2 (10:13→20:56)
[2020-12-12] MEDS: 0.9 % SODIUM CHLORIDE 10 ML SYRINGE IV SCH ×3 (10:13→21:08)
[2020-12-12] MEDS: PANTOPRAZOLE 40 MG TABLET PO SCH (10:14)
[2020-12-12] MEDS: cefTRIAXone 1 GM VIAL IV SCH (10:15)
[2020-12-12] MEDS: HYDROcodone/APAP 10/325MG TABLET PO PRN ×2 (10:16→19:40)
--- NOTE | 2020-12-12 13:30 | Internal Med Progress Note ---
SUBJECTIVE Subjective Patient information: Note initiated : 12/12/20 at 1:21 pm Service Date, if different from initiated Date: [] Patient: Debbie Delgado a 65 y/o F admitted on 12/09/20 for multiple falls recently. Chief Complaint: [UTI, left hip fracture] Interval history: Ms. Delgado is a 65 year old F Patient is extremely difficult to understand given her edentulous and does not have dentures. Sounds like she is fallen several times recently and has increasing left hip pain. Revealed a left hip fracture. She has a history of COPD and wears 1 L of oxygen at night but not during the day and is on CPAP at night for SHAMA. In the ED when she arrived on room air she was 82% when I went in there and try to drop her she did desat as well. She is on 4 to 6 L currently. She denies shortness of breath or cough. She says she was sick last month and they thought she had Covid but she went to the [facility] clinic and got tested and feels better now. Dr. Vivas for orthopedic surgery was contacted. 12/10 Patient had ORIF yesterday. Patient feeling well today. No new complaints. No cough shortness of breath. On 1.5 L nasal cannula. ?covid positive test on 11/27? Patient thought it was negative. 12/11 Check on 11/27 Covid test. Patient feeling well. No cough shortness of breath. Weaned off oxygen during the day. 12/12: Afebrile overnight. Been on 1.5L/min oxygen. Isolation protocol removed as per infectious control. c/o chills, chronic; denies any fever or sweating. Denies dysuria. Denies hip pain. Denies SOB. Constitutional Vitals: Vital Signs Temp Pulse Resp BP Pulse Ox 36.2 C 72 20 133/71 91 12/12/20 10:17 12/12/20 12:00 12/12/20 07:15 12/12/20 07:15 12/12/20 07:15 Period Temp Pulse Resp BP Sys/Sosa Pulse Ox Last 24 Hr 36.2 C-37.1 C 72-87 12-20 92-159/54-81 91-96 Intake and Output 12/11/20 12/12/20 12/12/20 21:59 05:59 13:59 Intake Total 1180 0 600 Output Total 600 526 Balance 580 -526 600 Weight 81.238 kg Intake & Output: Intake & Output 12/11/20 12/12/20 12/12/20 21:59 05:59 13:59 Intake Total 1180 0 600 Output Total 600 526 Balance 580 -526 600 Weight 81.238 kg Intake: Oral 1180 0 600 Output: Void Amount 600 525 # of times incontinent of urine 1 Other: Meal Lunch Percent of Meal Consumed 100% Feeding Ability Independent Urine Appearance Clear Urine Color Light Demi Bright Yellow Urine Odor Strong General appearance: cooperative and no acute distress Head Head exam: Present atraumatic and normocephalic Eye Eye exam: Present EOMI and PERRL ENT ENT exam: Present mucous membranes moist, normal exam and normal external ear exam Additional comments: Nasal cannula in place Neck Neck exam: Present normal inspection; Absent lymphadenopathy, tenderness and thyromegaly Respiratory Respiratory exam: Absent accessory muscle use, respiratory distress and wheezes Cardiovascular Cardiovascular exam: Present normal rate and rhythm; Absent JVD GI/Abdominal GI/Abdominal exam: Present normal bowel sounds and soft; Absent organomegaly and tenderness Extremities Exam Extremities exam: Present normal capillary refill; Absent full ROM, normal inspection and tenderness Additional comments: Left lateral hip covered by surgical dressing Neurological Exam Neurological exam: Present alert, CN II-XII intact and oriented X3; Absent motor sensory deficit Psychiatric Psychiatric exam: Present normal affect and normal mood; Absent anxious and depressed Skin Skin exam: Present dry and intact OBJ DATA Labs CBC & Chem 7: 12/12/20 06:17 12/11/20 06:14 Labs: Abnormal Lab Results 12/12/20 12/11/20 12/11/20 06:17 06:14 06:14 WBC 12.6 H 17.2 H Hgb 10.5 L 11.1 L Hct 32.6 L 34.0 L MPV 11.5 H 11.7 H Neut % (Auto) 79.7 H Lymph % (Auto) 14.1 L Seg Neutrophils % 84 H Lymphocytes % 12 L Absolute Neutrophils 10.01 H Glucose 124 H C-Reactive Protein 8.70 H NT-Pro-B Natriuret Pep Albumin Globulin Albumin/Globulin Ratio Urine Appearance Ur Leukocyte Esterase Urine RBC Urine WBC Triple Phos Crystals Urine Bacteria Hyaline Casts Urine Mucus Urine Opiates Screen Ur Amphetamines Screen 12/10/20 12/10/20 12/09/20 06:03 06:02 12:50 WBC 14.7 H Hgb Hct MPV 11.6 H Neut % (Auto) Lymph % (Auto) Seg Neutrophils % 87 H Lymphocytes % 7 L Absolute Neutrophils Glucose 152 H C-Reactive Protein NT-Pro-B Natriuret Pep Albumin 2.5 L Globulin 4.0 H Albumin/Globulin Ratio 0.6 L Urine Appearance Ur Leukocyte Esterase Urine RBC Urine WBC Triple Phos Crystals Urine Bacteria Hyaline Casts Urine Mucus Urine Opiates Screen Suspect positive A Ur Amphetamines Screen Suspect positive A 12/09/20 12/09/20 12/09/20 12:50 10:08 10:08 WBC Hgb Hct MPV Neut % (Auto) Lymph % (Auto) Seg Neutrophils % Lymphocytes % Absolute Neutrophils Glucose C-Reactive Protein 9.50 H NT-Pro-B Natriuret Pep 221.6 H Albumin Globulin Albumin/Globulin Ratio Urine Appearance Cloudy A Ur Leukocyte Esterase 500 A Urine RBC 60 H Urine WBC 37 H Triple Phos Crystals Many A Urine Bacteria Many A Hyaline Casts 5 H Urine Mucus Few A Urine Opiates Screen Ur Amphetamines Screen Meds: Medications Acetaminophen (Acetaminophen 325 Mg Tablet) 650 mg PO Q6HP PRN; Protocol PRN Reason: Per Pain Protocol/Fever > 101 Last Admin: 12/12/20 10:17 Dose: 650 mg Documented by: Hydrocodone Bitart/Acetaminophen (Hydrocodone/Apap 10/325mg Tablet) 1 - 2 tab PO Q4HP PRN; Protocol PRN Reason: Per Pain Protocol Last Admin: 12/12/20 10:16 Dose: 1 tab Documented by: Albuterol/Ipratropium (Ipratropium/Albuterol 3 Ml Ampul.Neb) 3 ml NEB Q4HP PRN PRN Reason: Shortness Of Breath Aspirin (Aspirin 81 Mg Tab.Chew) 81 mg CHEWED BID CHELI Last Admin: 12/12/20 10:13 Dose: 81 mg Documented by: Bisacodyl (Bisacodyl 10 Mg Supp.Rect) 10 mg NC Q2-3DAYS PRN PRN Reason: Constipation Ceftriaxone Sodium (Ceftriaxone 1 Gm Vial) 1 gm IV Q24H CHELI; Protocol Stop: 12/13/20 09:01 Last Admin: 12/12/20 10:15 Dose: 1 gm Documented by: Cilostazol (Cilostazol 100 Mg Tablet) 100 mg PO BID [facility] Last Admin: 12/12/20 10:12 Dose: 100 mg Documented by: Docusate Sodium (Docusate Sodium 100 Mg Capsule) 100 mg PO BID [facility] Last Admin: 12/12/20 10:13 Dose: 100 mg Documented by: Fluoxetine HCl (Fluoxetine Hcl 20 Mg Capsule) 80 mg PO DAILY [facility] Last Admin: 12/12/20 10:13 Dose: 80 mg Documented by: Hydromorphone HCl (Hydromorphone 1 Mg/Ml Syringe) 0.5 - 2 mg IV Q2HP PRN; Protocol PRN Reason: Per Pain Protocol Last Admin: 12/10/20 07:34 Dose: 1 mg Documented by: Potassium Chloride 40 meq/ (Dextrose) 520 mls @ 130 mls/hr IV UD PRN PRN Reason: Potassium < 3 Magnesium Sulfate (Magnesium Sulfate) 2 gm in 50 mls @ 50 mls/hr IV UD PRN PRN Reason: Magnesium </= 1.6 Ketorolac Tromethamine (Ketorolac 15 Mg/Ml Vial) 15 mg IV Q4-6HP PRN PRN Reason: Per Pain Protocol Stop: 12/13/20 16:39 Last Admin: 12/11/20 18:00 Dose: 15 mg Documented by: Labetalol HCl (Labetalol 5 Mg/Ml Ml) 0 mg IV Q2HP PRN PRN Reason: Hypertension Magnesium Hydroxide (Magnesium Hydroxide 30 Ml Oral.Susp) 30 ml PO BIDP PRN PRN Reason: Constipation Metoclopramide HCl (Metoclopramide 10 Mg/2 Ml Vial) 10 mg IV Q6HP PRN PRN Reason: Nausea And Vomiting Metoprolol Tartrate (Metoprolol Tartrate 25 Mg Tablet) 25 mg PO BID [facility] Last Admin: 12/12/20 10:13 Dose: 25 mg Documented by: Morphine Sulfate (Morphine 4 Mg/Ml Vial) 0 mg IV Q3HP PRN PRN Reason: Pain Nicotine (Nicotine 21 Mg Patch) 21 mg TOPICAL DAILY@1000 [facility] Last Admin: 12/12/20 10:12 Dose: 21 mg Documented by: Nortriptyline HCl (Nortriptyline 25 Mg Capsule) [address] [facility] Last Admin: 12/11/20 21:13 Dose: 50 mg Documented by: Ondansetron HCl (Ondansetron 4 Mg/2 Ml Vial) 4 mg IV Q4HP PRN PRN Reason: Nausea And Vomiting Pantoprazole Sodium (Pantoprazole 40 Mg Tablet) 40 mg PO QAMAC [facility] Last Admin: 12/12/20 10:14 Dose: 40 mg Documented by: Polyethylene Glycol (Polyethylene Glycol 3350 17 Gm Packet) 17 gm PO DAILYP PRN PRN Reason: Constipation Potassium Chloride (Potassium Chloride 20 Meq Tablet) 40 meq PO UD PRN PRN Reason: Potssium is 3-3.5 Potassium Chloride (Potassium Chloride 20 Meq Tablet) 40 meq PO UD PRN PRN Reason: Potassium < 3 Fluticasone/Salmeterol (Fluticasone/Salmeterol 250/50 Inhaler #14) 1 puff INH BID [facility] Last Admin: 12/12/20 10:13 Dose: Not Given Documented by: Senna (Sennosides 1 Tablet) 2 tab [address] [facility] Last Admin: 12/11/20 21:13 Dose: 2 tab Documented by: Sodium Biphosphate/Sodium Phosphate (Fleets Adult Enema) 1 dose NC Q3-4DAYS PRN PRN Reason: Constipation Sodium Chloride (0.9 % Sodium Chloride 10 Ml Syringe) 10 ml IV Q8 [facility] Last Admin: 12/12/20 10:13 Dose: 10 ml Documented by: Temazepam (Temazepam 15 Mg Capsule) 15 mg PO HSP PRN PRN Reason: Insomnia Last Admin: 12/11/20 23:39 Dose: 15 mg Documented by: Throat Lozenges (Benzocaine/Menthol 1 Lozenge) 1 lozenge PO PRN PRN PRN Reason: Sore Throat Tizanidine HCl (Tizanidine 4 Mg Tablet) 12 mg PO HS PRN PRN Reason: Pain Last Admin: 12/10/20 21:51 Dose: 12 mg Documented by: Trazodone HCl (Trazodone Hcl 150 Mg Tablet) [address] [facility] Last Admin: 12/11/20 21:13 Dose: 300 mg Documented by: A/P Assessment and plan (1) Anemia, normocytic normochromic: Status: Acute (2) History of continuous positive airway pressure (CPAP) therapy: Status: Chronic (3) UTI (urinary tract infection): Status: Chronic Qualifiers: Hematuria presence: with hematuria Urinary tract infection type: acute cystitis Qualified Code(s): N30.01 - Acute cystitis with hematuria (4) COPD (chronic obstructive pulmonary disease): Status: Chronic (5) SHAMA (obstructive sleep apnea): Status: Chronic (6) GERD (gastroesophageal reflux disease): Status: Chronic (7) History of alcohol abuse: Status: Chronic (8) Methamphetamine abuse: Status: Chronic (9) Asymptomatic COVID-19 virus infection: Status: Acute Narrative A/P Narrative: Assessment and Plans: 1. Left hip fracture: s/p left hip hemiarthroplasty by orthopedic surgeon Dr. Zamora Physical therapy recs. SNF placement, awaiting placement [place] PRN moderate pain Dilaudid IV PRN severe pain 2. Asymptomatic CoVID infection: Okay to remove isolation protocol as per infectious control Currently on 1.5L/min oxygen therapy, baseline 3. E coli UTI: Last day of Rocephin therapy Tylenol PRN fever 4. h/o COPD on home oxygen therapy: Advair Diskus DuoNEB NEB PRN wheezing Currently on 1.5L/min oxygen therapy, baseline 5. SHAMA on CPAP: Continue CPAP at night while sleeping 6. h/o GERD: Continue oral PPI 7. Methamphetamine abuse: Continue to observe for associated symptoms GI ppx: Continue oral PPI DVT ppx: SCDs Code status: DNI DNR Prognosis: stable Disposition: inpatient med surg; pending SNF placement Time Spent With Patient Time: Total time spent is greater than 50% in coordination of care (as documented) at patient's floor/unit and/or counseling patient: Total time spent with greater than 50% in coordination of care (as documented) at patient's floor/unit and/or counseling patient:: 25 - 35 minutes QUALITY VTE Deep Vein Thrombosis/Pulmonary Embolism Present on Admission: No
[2020-12-12] MEDS: NORTRIPTYLINE 25 MG CAPSULE PO SCH (20:56)
[2020-12-12] MEDS: traZODone HCL 150 MG TABLET PO SCH (20:56)
[2020-12-12] MEDS: SENNOSIDES 1 TABLET PO SCH (20:56)
[2020-12-13] MEDS: 0.9 % SODIUM CHLORIDE 10 ML SYRINGE IV SCH (04:38)
[2020-12-13 07:51] LABS: Basophils # (Auto) 0.01 K/mcL (0.00-0.30); Basophils % (Auto) 0.1 % (0.0-2.0); Eosinophils # (Auto) 0.06 K/mcL (0.00-0.70); Eosinophils % (Auto) 0.7 % (0.0-7.0); Hematocrit 33.4 % (34.1-44.9); Hemoglobin 10.7 g/dL (11.2-15.7); Lymphocytes # (Auto) 2.22 K/mcL (1.50-4.80); Lymphocytes % (Auto) 24.1 % (15.5-49.0); Mean Cell Volume 87.9 fL (80.0-100.0); Mean Platelet Volume 11.4 fL (7.4-10.4); Monocytes # (Auto) 0.46 K/mcL (0.10-0.90); Neutrophils % (Auto) 70.1 % (38.0-78.0); Platelet Count 238 K/mcL (140-440); Red Cell Distribution Width 12.2 % (11.5-14.5); WBC 9.2 K/mcL (4.5-11.0)
[2020-12-13] MEDS: PANTOPRAZOLE 40 MG TABLET PO SCH (08:09)
[2020-12-13] MEDS: DOCUSATE SODIUM 100 MG CAPSULE PO SCH (08:36)
[2020-12-13] MEDS: FLUoxetine HCL 20 MG CAPSULE PO SCH (08:36)
[2020-12-13] MEDS: CILOSTAZOL 100 MG TABLET PO SCH (08:37)
[2020-12-13] MEDS: ASPIRIN 81 MG TAB.CHEW CHEWED SCH (08:37)
[2020-12-13] MEDS: METOPROLOL TARTRATE 25 MG TABLET PO SCH (08:37)
[2020-12-13] MEDS: FLUTICASONE/SALMETEROL 250/50 INHALER #14 INH SCH (08:37)
[2020-12-13] MEDS: cefTRIAXone 1 GM VIAL IV SCH (08:47)
[2020-12-13] MEDS: HYDROcodone/APAP 10/325MG TABLET PO PRN (09:30)
[2020-12-13] MEDS: NICOTINE 21 MG PATCH TOPICAL SCH (09:30)
--- NOTE | 2020-12-13 10:11 | Discharge Summary ---
Discharge Provider Provider Patient information: Note initiated : 12/13/20 at 10:08 am Service Date, if different from initiated Date: [] Patient: Debbie Delgado a 65 y/o F admitted on 12/09/20 for multiple falls recently. Chief Complaint: [left hip fracture ] History of present illness: Ms. Delgado is a 65 year old F Patient is extremely difficult to understand given her edentulous and does not have dentures. Sounds like she is fallen several times recently and has increasing left hip pain. Revealed a left hip fracture. She has a history of COPD and wears 1 L of oxygen at night but not during the day and is on CPAP at night for SHAMA. In the ED when she arrived on room air she was 82% when I went in there and try to drop her she did desat as well. She is on 4 to 6 L currently. She denies shortness of breath or cough. She says she was sick last month and they thought she had Covid but she went to the [facility] and got tested and feels better now. Dr. Vivas for orthopedic surgery was contacted. Date of admission: 12/09/20 18:00 Discharge date: 12/13/20 Primary care physician: Shree Keys Consults: 12/09/20 Consult to Physician [CONS] Stat Comment: Consulting Provider: Sukhdev Devries Reason For Exam: Physician to Consult 12/09/20 18:40 Consult to Physician [CONS] Routine Comment: Consulting Provider: Michael Zamora Reason For Exam: Physician to Consult Discharge Meds Discharge Medications Home Medications lisinopril 40 mg tablet 40 mg PO DAILY tab 10/19/14 [History Confirmed 12/09/20 Last Taken 12/09/20 09:00] nortriptyline 10 mg capsule 50 mg PO QHS cap 10/19/14 [History Confirmed 12/09/20 Last Taken 08/17/19 20:00] clopidogrel 75 mg PO DAILY 02/19/15 [History Confirmed 12/09/20 Last Taken 12/09/20 09:00] trazodone 300 mg PO HS 02/19/15 [History Confirmed 12/09/20 Last Taken 08/14/15] albuterol sulfate 8.5 gm IH Q4 PRN 08/14/15 [History Confirmed 12/09/20 Last Taken 08/18/19 05:00] ondansetron 4 mg PO Q6H PRN #14 tab 10/04/19 [Rx Confirmed 12/09/20 Last Taken Unknown] diclofenac sodium 1 % topical gel 2 g TOPICAL QID 12/15/19 [History Confirmed 12/09/20 Last Taken Unknown] fluoxetine 40 mg capsule 80 mg PO QAM cap 12/15/19 [History Confirmed 12/09/20 Last Taken Unknown] ipratropium bromide 17 mcg/actuation HFA aerosol inhaler 2 puff INHALATION QID PRN 12/15/19 [History Confirmed 12/09/20 Last Taken Unknown] omeprazole 20 mg tablet,delayed release 40 mg PO QDAY 12/15/19 [History Confirmed 12/09/20 Last Taken Unknown] polyethylene glycol 3350 17 gram/dose oral powder 17 g PO QDAY 12/15/19 [History Confirmed 12/09/20 Last Taken Unknown] tizanidine 4 mg tablet 12 mg PO HS PRN 12/15/19 [History Confirmed 12/09/20 Last Taken Unknown] triamterene 37.5 mg-hydrochlorothiazide 25 mg tablet 1 tab PO QDAY 12/15/19 [History Confirmed 12/09/20 Last Taken Unknown] cilostazol 100 mg tablet 100 mg PO BID tab 12/22/19 [History Confirmed 12/10/20 Last Taken Unknown] fluticasone 250 mcg-salmeterol 50 mcg/dose blistr powdr for inhalation 1 inh INHALATION BID 08/19/20 [History Confirmed 12/09/20 Last Taken Unknown] metoprolol tartrate 25 mg tablet 25 mg PO BID 08/19/20 [History Confirmed 12/09/20 Last Taken Unknown] salmeterol 50 mcg/dose blister powder for inhalation 1 inh INHALATION BID PRN 08/19/20 [History Confirmed 12/09/20 Last Taken Unknown] docusate sodium 100 mg PO BID #60 cap 12/09/20 [Rx Last Taken Unknown] hydrocodone-acetaminophen 1 - 2 tab PO Q4HP PRN #75 tab 12/09/20 [Rx Last Taken Unknown] COURSE Hospital Course Hospital course: 12/10 Patient had ORIF yesterday. Patient feeling well today. No new complaints. No cough shortness of breath. On 1.5 L nasal cannula. ?covid positive test on 11/27? Patient thought it was negative. 12/11 Check on 11/27 Covid test. Patient feeling well. No cough shortness of breath. Weaned off oxygen during the day. 12/12: Afebrile overnight. Been on 1.5L/min oxygen. Isolation protocol removed as per infectious control. c/o chills, chronic; denies any fever or sweating. Denies dysuria. Denies hip pain. Denies SOB. 12/13: Accepted and be discharged to SNF. Discharge diagnosis: left hip fracture Time Spent with Patient Time attestation: Total time spent providing and/or coordinating discharge services: 12/10 Patient had ORIF yesterday. Patient feeling well today. No new complaints. No cough shortness of breath. On 1.5 L nasal cannula. ?covid positive test on 11/27? Patient thought it was negative. 12/11 Check on 11/27 Covid test. Patient feeling well. No cough shortness of breath. Weaned off oxygen during the day. 12/12: Afebrile overnight. Been on 1.5L/min oxygen. Isolation protocol removed as per infectious control. c/o chills, chronic; denies any fever or sweating. Denies dysuria. Denies hip pain. Denies SOB. 12/13: Accepted and be discharged to SNF. EXAM Constitutional Vitals: Temp Pulse Resp BP Pulse Ox 36.3 C 80 20 160/81 94 12/13/20 07:33 12/13/20 03:14 12/13/20 07:33 12/13/20 07:33 12/13/20 07:33 General appearance: cooperative and no acute distress Head Head exam: Present atraumatic and normocephalic Eye Eye exam: Present EOMI and PERRL ENT ENT exam: Present mucous membranes moist, normal exam and normal external ear exam Neck Neck exam: Present normal inspection; Absent lymphadenopathy, tenderness and thyromegaly Respiratory Respiratory exam: Absent accessory muscle use, respiratory distress and wheezes Cardiovascular Cardiovascular exam: Present normal rate and rhythm; Absent JVD GI/Abdominal GI/Abdominal exam: Present normal bowel sounds and soft; Absent organomegaly and tenderness Extremities Exam Extremities exam: Present normal capillary refill and tenderness; Absent full ROM and normal inspection Additional comments: left lateral hip covered by surgical dressing Neurological Exam Neurological exam: Present alert, CN II-XII intact and oriented X3; Absent motor sensory deficit Psychiatric Psychiatric exam: Present normal affect and normal mood; Absent anxious and depressed Skin Skin exam: Present dry and intact Discharge Data Data Completed and Pending Labs on day of discharge: Labs from last 24 hours 12/13/20 05:25 WBC 9.2 RBC 3.80 Hgb 10.7 L Hct 33.4 L MCV 87.9 MCH 28.2 MCHC 32.0 RDW 12.2 Plt Count 238 MPV 11.4 H Neut % (Auto) 70.1 Lymph % (Auto) 24.1 [place] % (Auto) 5.0 Eos % (Auto) 0.7 Baso % (Auto) 0.1 Lymph # (Auto) 2.22 [place] # (Auto) 0.46 Eos # (Auto) 0.06 Baso # (Auto) 0.01 Absolute Neutrophils 6.48 Discharge Plan Patient/Caregiver Discharge Instructions Activity: ambulate only with your walker and as per physical therapy Diet: Regular Diet Prescriptions: New docusate sodium 100 mg Capsule 100 mg PO BID Qty: 60 RF: 0 hydrocodone-acetaminophen 10-325 mg Tablet 1 - 2 tab PO Q4HP PRN (Reason: Per Pain Protocol) Qty: 75 RF: 0 No Action nortriptyline 10 mg capsule 50 mg PO QHS RF: 0 lisinopril 40 mg tablet 40 mg PO DAILY RF: 0 fluoxetine 40 mg capsule 80 mg PO QAM RF: 0 Atrovent HFA 17 mcg/actuation HFA aerosol inhaler 2 puff INHALATION QID PRN (Reason: Shortness Of Breath) RF: 0 diclofenac sodium 1 % gel 2 g TOPICAL QID RF: 0 omeprazole 20 mg tablet,delayed release (DR/EC) 40 mg PO QDAY RF: 0 polyethylene glycol 3350 17 gram/dose powder 17 g PO QDAY RF: 0 tizanidine 4 mg tablet 12 mg PO HS PRN (Reason: Pain) RF: 0 triamterene-hydrochlorothiazid 37.5-25 mg tablet 1 tab PO QDAY RF: 0 cilostazol 100 mg tablet 100 mg PO BID RF: 0 fluticasone propion-salmeterol [Advair Diskus] 250-50 mcg/dose blister with device 1 inh inhalation BID RF: 0 metoprolol tartrate 25 mg tablet 25 mg PO BID RF: 0 Serevent Diskus 50 mcg/dose blister with device 1 inh inhalation BID PRN (Reason: Shortness Of Breath) RF: 0 clopidogrel 75 MG tablet 75 mg PO DAILY RF: 0 trazodone 300 MG tablet 300 mg PO HS RF: 0 albuterol sulfate 8.5 GM HFA aerosol inhaler 8.5 gm IH Q4 PRN (Reason: copd) RF: 0 ondansetron 4 mg tablet,disintegrating 4 mg PO Q6H PRN (Reason: nausea and vomiting) Qty: 14 RF: 0 mirabegron [Myrbetriq] 25 mg tablet extended release 24 hr 25 mg PO DAILY RF: 0 Other Ambulatory Orders: Physical Therapy DC - [facility] (Routine) Location: None Selected Ordered By: Maxime Gray Toilet Riser Discharge Order (ONCE) Location: None Selected Ordered By: Maxime Gray Walker (ONCE) Location: None Selected Ordered By: Maxime Gray Follow Up Plan Follow up with: Shree Keys [Primary Care Provider] - Maxime Gray PA-C [[employer]] - 12/24/20 1:40 pm Patient Disposition: Home, Self-Care Prognosis: Fair Rehab Potential: Good I certify that the patient requires SNF services: No Overall status at discharge: patient is progressing back to baseline Discharge Orders: Discharge Order (Routine); Ordered 12/13/20 Ordered By: John Paul MORA VTE Deep Vein Thrombosis/Pulmonary Embolism Present on Admission: No
[2020-12-27 00:13] LABS: Opiate Confirmation Positive
== END 2020-12-13 13:00 | DRG 521 ==
LOC: ED 09:16 → SUR 15:40 → MEDSUR 18:00
PROVIDERS: ADMIT Internal Medicine; ATTEND Internal Medicine